=== PATIENT | male | born 1950 | race Caucasian/White ===

== ENCOUNTER → 2020-11-02 12:35 | Outpatient (BNVA) | payer MEDICARE, OTHER, SELFPAY | PROVIDERS: PCP Family Medicine; Visit Provider Internal Medicine Cardiovascular Disease | DX: E85.2 Heredofamilial amyloidosis, unspecified (principal); I95.1 Orthostatic hypotension; I35.0 Nonrheumatic aortic (valve) stenosis; Z79.899 Other long term (current) drug therapy | CPT/HCPCS: 99212 ==

== ENCOUNTER 2021-04-27 10:01 | Outpatient (REF) | payer MEDICARE, OTHER, SELFPAY ==
[2021-04-27 13:57] LABS: MANUAL DIFF FLAG NO
[2021-04-27 14:14] LABS: Basophils Percent Auto 0.6 % (0-2); Eosinophils Absolute Auto 0.5 X10*3/uL (0.0-0.4); Eosinophils Percent Auto 7.8 % (0-4); Hematocrit 39.3 % (42-52); Hemoglobin 13.2 g/dl (14.0-18.0); Imm Gran Abs Auto 0.01 X10*3/uL (0.00-0.03); Imm Gran Pct Auto 0.1 % (0.0-0.4); Mean Corpuscular HGB Conc 33.6 g/dl (31.0-36.0); Mean Corpuscular Hemoglobin 30.5 pg (27.0-33.0); Mean Corpuscular Volume 90.8 fL (80-98); Mean Platelet Volume 10.7 fL (9.4-12.4); Monocytes Absolute Auto 0.7 X10*3/uL (0.1-1.2); Monocytes Percent Auto 10.5 % (2-11); Neutrophils Absolute Auto 4.4 X10*3/uL (2.0-8.3); Platelet Count 224 X10*3/uL (160-400); Red Blood Count 4.33 X10*6/uL (4.60-5.80); Red Cell Distribution Width 12.4 % (11.0-16.0); White Blood Count 6.7 X10*3/uL (4.8-10.8)
[2021-04-27 14:17] LABS: Appearance Urine CLEAR; Color Urine YELLOW; Glucose Urine UA NEG (NEG); Leukocyte Esterase Urine NEG (NEG); Nitrite Urine NEG (NEG); Urine Blood TRACE (NEG); Urine Ketones NEG (NEG); Urine Protein NEG (NEG-TRACE)
[2021-04-27 14:32] LABS: Squamous Epithelial Cell Urine 1+ /LPF; WBC Urine 0 /HPF (0-4)
[2021-04-27 14:34] LABS: Alanine Aminotransferase 16 U/L (0-40); Albumin Level 3.8 g/dL (3.5-5.0); Alkaline Phosphatase 82 U/L (39-117); Anion Gap 11 (12-20); Aspartate Amino Transferase 22 U/L (5-37); Blood Urea Nitrogen 15 mg/dL (9-16); Calcium 9.3 mg/dL (8.4-10.2); Carbon Dioxide 30 mmol/L (22-29); Chloride 102 mmol/L (96-108); Cholesterol 171 mg/dL; Estimated Glomerular Filt Rate > 60; Glucose Fasting 87 mg/dL (60-99); HDL Cholesterol 43 mg/dL; LDL Cholesterol Calculated 118 mg/dl; Potassium 4.3 mmol/L (3.3-5.1); Sodium 139 mmol/L (135-145); Total Protein 6.4 g/dL (6.5-8.0); Triglycerides 54 mg/dL
[2021-04-27 14:54] LABS: Folate 17.7 ng/mL (> or = 4.0); Vitamin B12 803 pg/mL (200-900)
[2021-04-27 14:55] LABS: TSH reflex Free T4 0.92 uIU/mL (0.32-4.0)
== END 2021-04-27 10:02 | disposition home or self-care (01) ==
LOC: HO.WFDLDS 10:01
PROVIDERS: Visit Provider Family Medicine
DX: Z00.00 Encounter for general adult medical examination without abnormal findings (principal); E53.8 Deficiency of other specified B group vitamins; E85.2 Heredofamilial amyloidosis, unspecified
CPT/HCPCS: 36415; 80053; 80061; 81001; 81003; 82607; 82746; 84443; 85025

== ENCOUNTER → 2021-11-01 12:25 | Outpatient (BNVA) | payer MEDICARE, OTHER, SELFPAY | PROVIDERS: PCP Family Medicine; Referring Provider Family Medicine; Visit Provider Internal Medicine Cardiovascular Disease | DX: E85.2 Heredofamilial amyloidosis, unspecified (principal); I35.0 Nonrheumatic aortic (valve) stenosis; I95.1 Orthostatic hypotension | CPT/HCPCS: 93005 ==

== ENCOUNTER → 2021-11-12 11:19 | Outpatient (BNVA) | payer MEDICARE, OTHER, SELFPAY | PROVIDERS: PCP Family Medicine; Referring Provider Family Medicine; Visit Provider Internal Medicine Gastroenterology | DX: E85.2 Heredofamilial amyloidosis, unspecified (principal); R19.7 Diarrhea, unspecified | CPT/HCPCS: 99202 ==

== ENCOUNTER 2021-11-15 09:37 | Outpatient (REF) | payer MEDICARE, OTHER, SELFPAY ==
[2021-11-15 10:43] LABS: MANUAL DIFF FLAG NO
[2021-11-15 10:47] LABS: Basophils Percent Auto 0.7 % (0-2); Eosinophils Absolute Auto 0.1 X10*3/uL (0.0-0.4); Eosinophils Percent Auto 2.5 % (0-4); Hematocrit 40.4 % (42.0-52.0); Hemoglobin 13.7 g/dl (14.0-18.0); Imm Gran Abs Auto 0.01 X10*3/uL (0.00-0.03); Imm Gran Pct Auto 0.2 % (0.0-0.4); Lymphocytes Percent Auto 25.7 % (20-40); Mean Corpuscular HGB Conc 33.9 g/dl (31.0-36.0); Mean Corpuscular Hemoglobin 30.4 pg (27.0-33.0); Mean Corpuscular Volume 89.8 fL (80.0-98.0); Mean Platelet Volume 10.3 fL (9.4-12.4); Monocytes Absolute Auto 0.4 X10*3/uL (0.1-1.2); Monocytes Percent Auto 10.5 % (2-11); Neutrophils Absolute Auto 2.4 x10*3/uL (2.0-8.3); Neutrophils Percent Auto 60.4 % (45-73); Platelet Count 216 X10*3/uL (160-400); Red Cell Distribution Width 12.5 % (11.0-16.0)
[2021-11-15 10:55] LABS: INTERNATIONAL NORM RATIO 1.5 (0.9-1.1); Prothrombin Time 16.8 SEC (9.9-13.0)
[2021-11-15 11:28] LABS: Erythrocyte Sedimentation Rate 6 MM/HR (0-15)
[2021-11-15 11:35] LABS: Alanine Aminotransferase 18 U/L (0-40); Albumin Level 3.8 g/dL (3.5-5.0); Alkaline Phosphatase 70 U/L (39-117); Anion Gap 9 (12-20); Aspartate Amino Transferase 21 U/L (5-37); Bilirubin Total 0.8 mg/dL (0.0-1.0); Blood Urea Nitrogen 11 mg/dL (9-16); Calcium 9.4 mg/dL (8.4-10.2); Carbon Dioxide 32 mmol/L (22-29); Chloride 102 mmol/L (96-108); Estimated Glomerular Filt Rate > 60; Glucose Fasting 86 mg/dL (60-99); Potassium 3.9 mmol/L (3.3-5.1); Sodium 139 mmol/L (135-145); Total Protein 6.5 g/dL (6.5-8.0)
== END 2021-11-15 09:38 | disposition home or self-care (01) ==
LOC: HO.WFDLDS 09:37
PROVIDERS: Visit Provider Family Medicine
DX: Z00.00 Encounter for general adult medical examination without abnormal findings (principal); E85.89 Other amyloidosis; H34.8192 Central retinal vein occlusion, unspecified eye, stable
CPT/HCPCS: 36415; 80053; 85025; 85610; 85652

== ENCOUNTER → 2022-04-25 11:18 | Outpatient (BNVA) | payer MEDICARE, OTHER, SELFPAY | PROVIDERS: PCP Family Medicine; Visit Provider Internal Medicine Gastroenterology | DX: E85.89 Other amyloidosis (principal); Z79.899 Other long term (current) drug therapy | CPT/HCPCS: 99212 ==

== ENCOUNTER 2022-05-19 11:54 | Outpatient (REF) | payer MEDICARE, OTHER, SELFPAY | END 2022-05-19 11:55 | disposition home or self-care (01) | LOC: HO.LNP 11:54 | PROVIDERS: Visit Provider Nurse Practitioner Adult Health | DX: R82.71 Bacteriuria (principal) | CPT/HCPCS: 87086 ==

== ENCOUNTER 2022-09-22 09:36 | Outpatient (REF) | payer MEDICARE, OTHER, SELFPAY ==
[2022-09-22 11:15] LABS: MANUAL DIFF FLAG NO
[2022-09-22 11:25] LABS: Basophils Percent Auto 0.6 % (0-2); Eosinophils Absolute Auto 0.1 X10*3/uL (0.0-0.4); Hematocrit 40.4 % (42.0-52.0); Hemoglobin 13.7 g/dl (14.0-18.0); Imm Gran Abs Auto 0.01 X10*3/uL (0.00-0.03); Imm Gran Pct Auto 0.2 % (0.0-0.4); Lymphocytes Absolute Auto 1.1 X10*3/uL (1.2-4.9); Lymphocytes Percent Auto 22.6 % (20-40); Mean Corpuscular HGB Conc 33.9 g/dl (31.0-36.0); Mean Corpuscular Hemoglobin 30.7 pg (27.0-33.0); Mean Corpuscular Volume 90.6 fL (80.0-98.0); Mean Platelet Volume 10.7 fL (9.4-12.4); Monocytes Absolute Auto 0.5 X10*3/uL (0.1-1.2); Monocytes Percent Auto 10.8 % (2-11); Neutrophils Absolute Auto 3.2 x10*3/uL (2.0-8.3); Neutrophils Percent Auto 63.8 % (45-73); Platelet Count 208 X10*3/uL (160-400); Red Blood Count 4.46 X10*6/uL (4.60-5.80); Red Cell Distribution Width 13.2 % (11.0-16.0)
[2022-09-22 12:43] LABS: Alanine Aminotransferase 21 U/L (0-40); Albumin Level 3.8 g/dL (3.5-5.0); Alkaline Phosphatase 81 U/L (39-117); Anion Gap 13 (12-20); Aspartate Amino Transferase 23 U/L (5-37); Bilirubin Total 1.2 mg/dL (0.0-1.0); Blood Urea Nitrogen 17 mg/dL (9-16); Calcium 9.1 mg/dL (8.4-10.2); Carbon Dioxide 31 mmol/L (22-29); Chloride 102 mmol/L (96-108); Cholesterol 179 mg/dL; Estimated Glomerular Filt Rate > 60; Glucose Fasting 83 mg/dL (60-99); HDL Cholesterol 48 mg/dL; LDL Cholesterol Calculated 119 mg/dl; Potassium 4.1 mmol/L (3.3-5.1); Prealbumin < 3.0 mg/dL (20-40); Prostate Specific Antigen Scr 0.47 ng/mL (<0.05-4.0); Sodium 142 mmol/L (135-145); TSH reflex Free T4 1.79 uIU/mL (0.32-4.0); Total Protein 6.3 g/dL (6.5-8.0); Triglycerides 63 mg/dL
== END 2022-09-22 09:37 | disposition home or self-care (01) ==
LOC: HO.WFDLDS 09:36
PROVIDERS: Visit Provider Family Medicine
DX: Z00.00 Encounter for general adult medical examination without abnormal findings (principal); Z12.5 Encounter for screening for malignant neoplasm of prostate; E85.2 Heredofamilial amyloidosis, unspecified
CPT/HCPCS: 36415; 80053; 80061; 84134; 84153; 84443; 85025

== ENCOUNTER 2022-09-23 10:21 | Outpatient (REF) | payer MEDICARE, OTHER, SELFPAY ==
[2022-09-23 14:16] LABS: Appearance Urine Clear; Color Urine Yellow; Glucose Urine UA Negative (Negative); Leukocyte Esterase Urine Moderate (2+) (Negative); Nitrite Urine Negative (Negative); Specific Gravity - Urine 1.015 (1.005-1.025); UMIC TRIGGER UA YES; Urine Blood Negative (Negative); Urine Ketones Negative (Negative); Urine Protein Negative (Neg-Trace)
[2022-09-23 14:19] LABS: RBC Urine 0-2 /HPF (0-2); WBC Urine 21-50 /HPF (0-5)
[2022-09-23 14:20] LABS: Bacteria Urine None Seen (None Seen); Hyaline Casts Urine 0-2 /LPF (0-2); Squamous Epithelial Cell Urine 0-2 /HPF (0-2)
[2022-09-23 15:12] LABS: Creatinine Urine 91.72 mg/dL; Microalbum/Creatinine Ratio Ur 11.9 ug/mg cr
== END 2022-09-23 10:22 | disposition home or self-care (01) ==
LOC: HO.WFDLNP 10:21
PROVIDERS: Visit Provider Family Medicine
DX: I10 Essential (primary) hypertension (principal)
CPT/HCPCS: 81001; 81003; 82043

== ENCOUNTER → 2022-11-03 12:33 | Outpatient (BNVA) | payer MEDICARE, OTHER, SELFPAY | PROVIDERS: PCP Family Medicine; Referring Provider Family Medicine; Visit Provider Internal Medicine Cardiovascular Disease | DX: E85.2 Heredofamilial amyloidosis, unspecified (principal); I35.0 Nonrheumatic aortic (valve) stenosis; I95.1 Orthostatic hypotension | CPT/HCPCS: 93005; 99212 ==

== ENCOUNTER → 2022-11-11 10:30 | Outpatient (BNVA) | payer MEDICARE, OTHER, SELFPAY | PROVIDERS: PCP Family Medicine; Visit Provider Internal Medicine Gastroenterology | DX: E85.3 Secondary systemic amyloidosis (principal) | CPT/HCPCS: 99212 ==

== ENCOUNTER 2023-07-13 12:51 | Outpatient (AMB) | payer MEDICARE, OTHER, SELFPAY ==
--- NOTE | 2023-07-13 12:57 | MHC.PC.OV ---
Vital Signs 07/13/23 12:59 Height 6 ft 0.5 in Weight 160 lb BMI 21.4 BP 126/74 Blood Pressure Location Rt brachial Position Sitting Respiration 13 Pulse 73 Pulse Source Pulse Oximeter Temp 97.6 F Temp Source Temporal Artery Scan Pulse Oximetry (%) 99 Oxygen Delivery Method Room Air Intake Visit Reasons: Follow up chronic conditions Intake Note: Patient states that he needs a refill on fludrocortisone and that the instruction on the medication needs to say half a tab once a day so that they give 45 tabs instead of 90 for the month. Pathology Laboratory Director Required: No Accompanied by: Spouse Allergies No Known Allergies Allergy (Verified 07/13/23 13:05) Tobacco use date assessed: 03/21/23 Fall risk assessment: No Falls in past year Last assessed Fall Risk: 07/13/23 Dental Screening Dental Screen Date: 07/13/23 Did you have a dental visit in the last 12 months?: Yes Did you have a dental problem in the last 6 months where you did not have access to dental care?: No Was dental information given to patient?: Patient has dentist HPI Follow up chronic conditions HPI Details 73 y/o male presents to f/u chronic conditions. Hx of amyloidosis. Chronic diarrhea. Pt continues to follow up with specialists in [place] and continues his vutrisiran. He states he is breathing well and feels his strength is better. He reports diarrhea has improved. HPI Comments History of Present Illness Details Documentation assistance for Dioni Quevedo MD, was provided by Ziyad Robbins, Self Contained Behavior Unit Teacher on 07/13/2023 1:29 PM EST. I, Dr. Quevedo, have read, observed, and verified documentation. [facility] Medical History Orthostatic hypotension Aortic stenosis Amyloidosis inherited systemic Surgical History History of carpal tunnel surgery History of biopsy History of surgery History of colonoscopy Family History Father Substance use disorder Mother Leukemia Brother No problems noted. Sister Seronegative rheumatoid arthritis Sister No problems noted. Daughter No problems noted. Social History Housing: House Alcohol intake: current Alcohol intake frequency: a few times a month Patient Tobacco Use Status: Never used Tobacco e-Cigarette/Vaping Use: Never Used service: No Current occupational status: retired Current occupational exposures/hazards: No Cognitive needs: No Hearing needs: No Vision needs: No Questionnaire Thrive Questionnaire Date Thrive assessed: 09/29/22 ABRIL-7 AMB Questionnaire ABRIL-7 Date ABRIL - 7 assessed: 09/29/22 Source: Developed by Drs. Salvador Stout, Dory Queen, Johnathon Zapata and colleagues, with an educational tamara from [employer]. Review of Systems Const Denies chills, Denies fatigue, Denies fever(s), Denies headache(s) and Denies weakness ENT Denies dizziness and Denies headache(s) Card Denies chest pain, Denies lightheadedness, Denies dyspnea and Denies other (Palpitations) Resp Denies cough, Denies dyspnea, Denies wheezing and Denies other ( shortness of breath) Musc Denies numbness and Denies tingling Neuro Denies dizziness, Denies headache(s), Denies numbness, Denies tingling, Denies paresthesias and Denies weakness Psych Denies anxiety and Denies depression Endo Denies fatigue Aller/Immun Denies wheezing Physical exam (Primary Care) Vital Signs: Last Vital Signs Temp 97.6 F 07/13/23 12:59 Pulse 73 07/13/23 12:59 Resp 13 07/13/23 12:59 BP 126/74 07/13/23 12:59 Pulse Ox 99 07/13/23 12:59 Oxygen Delivery Method Room Air 07/13/23 12:59 BMI result Body Mass Index 21.4 Tobacco/Smoking Status: Tobacco use Status Tobacco use date assessed 03/21/23 07/13/23 12:59 Patient Tobacco Use Status Never used Tobacco 07/13/23 12:59 e-Cigarette/Vaping Use Never Used 07/13/23 12:59 Thrive Assessment: Date of Thrive Assessment Date Thrive assessed 09/29/22 07/13/23 12:59 Const General: no acute distress and well developed Nutritional Appearance: well nourished Orientation/consciousness: patient oriented x3 HENMT Head: Yes normocephalic and Yes atraumatic Eyes General: appearance normal, both eyes and all related structures Pupils: Equal, round and reactive pupils present EOM: EOMs intact bilaterally Resp Effort & Inspection: normal respiratory effort Auscultation: clear to auscultation bilaterally Cardio Rate: regular rate Rhythm: regular rhythm Heart sounds: S1 normal heart sound present, S2 normal heart sound present, no gallops, Murmur heart sound present and no rubs Neuro General: patient oriented x3 and gait normal Cranial nerves: Yes Equal, round and reactive pupils present Psych Affect: normal affect Assessment and Plan Assessment & Plan (1) Amyloidosis inherited systemic: Code(s): 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 Most?recent?visit?at?[facility]?in?May?showed?that?his?neuromuscular?exam?was?stable?or?even?mildly?improved. They?recommended?he?have?an?echocardiogram?in?6?months?to?follow?his?aortic?valve?stenosis. Suggested?that?BNP?is?likely?elevated?due?to?progression?of?this. Continue?exercising?at?home (2) Diarrhea: Code(s): R19.7 - Diarrhea, unspecified Plan: Much?improved?though?patient?is?not?certain?exactly?why.??He?does?continue?Imodium.??He?tried?cholestyramine?without?any?improvements?so?he?stopped?that. Follow-up?with?GI?as?recommended Orders: Orders Microalbumin, Random (w Creat) 5 Months I10 - Essential (primary) hypertension UA and rflx microscopic 5 Months Z00.00 - Encounter for general adult medical examination without abnormal findings TSH reflex Free T4 5 Months Z00.00 - Encounter for general adult medical examination without abnormal findings B Type Natriuretic Peptide Today I50.9 - Heart failure, unspecified Comprehensive [place]. Panel Fast 5 Months Z00.00 - Encounter for general adult medical examination without abnormal findings Complete Blood Count Auto Diff 5 Months Z00.00 - Encounter for general adult medical examination without abnormal findings Lipid Panel 5 Months Z00.00 - Encounter for general adult medical examination without abnormal findings Prostate Specific Antigen Scr 5 Months Z12.5 - Encounter for screening for malignant neoplasm of prostate Basic Metabolic Panel Fasting Today R19.7 - Diarrhea, unspecified Medications: Refilled fludrocortisone 0.05 mg (1/2 x 0.1 mg) PO QAM 45 tabs 3RF 90 days Coding Level of Care Code Est Pt Level 4 (28912) Diagnoses Amyloidosis inherited systemic E85.2 Diarrhea R19.7
[2023-07-13 12:59] VITALS: BP 126/74; PULSE 73; RESP 13; TEMP 36.4; O2SAT 99; BMI 21.4
== END 2023-07-13 13:52 | disposition home or self-care (01) ==
PROVIDERS: PCP Family Medicine; Visit Provider Family Medicine
DX: E85.2 Heredofamilial amyloidosis, unspecified (principal); R19.7 Diarrhea, unspecified
CPT/HCPCS: 99214

== ENCOUNTER 2023-08-25 14:39 | Outpatient (REF) | payer MEDICARE, OTHER, SELFPAY ==
[2023-08-25 16:34] LABS: Anion Gap 9 (12-20); Blood Urea Nitrogen 13 mg/dL (9-16); Calcium 9.1 mg/dL (8.4-10.2); Carbon Dioxide 32 mmol/L (22-29); Chloride 102 mmol/L (96-108); Estimated Glomerular Filt Rate > 60; Glucose Random 94 mg/dL (60-115); Potassium 3.8 mmol/L (3.3-5.1); Sodium 139 mmol/L (135-145)
[2023-08-25 16:39] LABS: B Type Natriuretic Peptide 291 pg/mL (<100)
== END 2023-08-25 14:40 | disposition home or self-care (01) ==
LOC: HO.LAB 14:39
PROVIDERS: PCP Family Medicine; Visit Provider Internal Medicine Cardiovascular Disease
DX: M79.89 Other specified soft tissue disorders (principal)
CPT/HCPCS: 36415; 80048; 83880

== ENCOUNTER 2023-11-06 10:46 | Outpatient (AMB) | payer MEDICARE, OTHER, SELFPAY ==
[2023-11-06 10:56] VITALS: BP 145/55; PULSE 71; BMI 22.1
--- NOTE | 2023-11-06 10:56 | MHC.OFFVIS ---
Intake Vital Signs 11/06/23 10:56 Height 6 ft 0.05 in Weight 163 lb 2.273 oz BMI 22.1 BP 145/55 H Blood Pressure Location Lt brachial Position Sitting Pulse 71 Intake Visit Reasons: 1 Year Follow Up Intake Note: Wilmar presents in the office as a 1 year follow up. CC: No concerns today! Allergies No Known Allergies Allergy (Verified 11/06/23 11:03) HPI 1 Year Follow Up HPI Details 73 yr old m here for f/u RECAP: He was diagnosed with hereditary amyloidosis, after he had weakness in the legs he is on patisiran he has been having bowel habit issues he has diarrhea he had SIBO test with [facility] and was apparently pos and was given rifaxmin with great results he had formed stools for several weeks sx recurred few weeks ago he has diarrhea tyson with any type of food he has had c diff 2018 he had c diff checked Aug 2021 and was neg last colonoscopy 2018--nml INTERIM: he is doing well he is on the amyloidosis treatment q 3 months still taking probiotic, align--night time he has v occasional diarrhea attacks, not as bad as before --uses imodium which helps no abdominal pain appetite is good he didnt like the cholestyramine --felt it made him worse EXAM: GENERAL: The patient is relaxed VITAL SIGNS:see workflow HEENT: Nonicteric sclerae, PERRLA, EOMI. Oropharynx clear. Moist mucous membranes. Conjunctivae appear well perfused. No thyroid mass. CHEST: Chest wall is nontender. HEART: Regular rate and rhythm without murmurs. LUNGS: Clear to auscultation bilaterally. ABDOMEN: Soft, positive bowel sounds, nontender, no organomegaly.no flank tenderness SKIN: No rash, no excessive bruising, petechiae, or purpura. NEUROLOGIC: Cranial nerves II-XII intact without motor/sensory deficit. psych: nml affect A/P 1/ Hx of amyloidosis, does predispose to SIBO, plus itself can invade lining of GI tract and can cause diarrhea, ddx; CHO intolerance, pancreatic intolerance, biliary malabsorption PLAN: 1/ cont with align, will add colveselam and see if helps 2/ prn rifaximin PFSH Medical History Orthostatic hypotension Aortic stenosis Amyloidosis inherited systemic Surgical History History of carpal tunnel surgery History of biopsy History of surgery History of colonoscopy Family History Father Substance use disorder Mother Leukemia Brother No problems noted. Sister Seronegative rheumatoid arthritis Sister No problems noted. Daughter No problems noted. Social History Housing: House Alcohol intake: current Alcohol intake frequency: a few times a month Patient Tobacco Use Status: Never used Tobacco e-Cigarette/Vaping Use: Never Used service: No Current occupational status: retired Current occupational exposures/hazards: No Cognitive needs: No Hearing needs: No Vision needs: No Physical Exam Vital Signs: Last Vital Signs Pulse 71 11/06/23 10:56 BP 145/55 H 11/06/23 10:56 BMI result Body Mass Index 22.1 Assessment & Plan Assessment & Plan (1) Diarrhea: Code(s): R19.7 - Diarrhea, unspecified Plan: PLAN: 1/ cont with align, will add colveselam and see if helps 2/ prn rifaximin Medications: New colesevelam 1,250 mg (2 x 625 mg) PO BID 30 tabs 0RF Coding Level of Care Code Est Pt Level 3 (65066) Diagnoses Diarrhea R19.7
== END 2023-11-06 11:26 | disposition home or self-care (01) ==
PROVIDERS: PCP Family Medicine; Visit Provider Internal Medicine Gastroenterology
DX: R19.7 Diarrhea, unspecified (principal)
CPT/HCPCS: 99213

== ENCOUNTER → 2023-11-06 10:46 | Outpatient (BNVA) | payer MEDICARE, OTHER, SELFPAY | PROVIDERS: PCP Family Medicine; Visit Provider Internal Medicine Gastroenterology | DX: R19.7 Diarrhea, unspecified (principal) | CPT/HCPCS: 99212 ==

== ENCOUNTER → 2023-11-13 12:39 | Outpatient (REF) | payer MEDICARE, OTHER, SELFPAY ==
--- NOTE | 2023-11-13 12:42 | CA_ITS ---
Transthoracic Echocardiogram Patient (Last, First, Middle): Wilmar Pope L Gender: Male Date of : 1950 Age: 73 Procedure Date: 11/13/2023 Procedure Type: Transthoracic Echocardiogram Location: OP Height: 185.42 cm Weight: 73.94 kg BSA: 1.97 m2 Heart Rate: bpm BP: 122 / 68 mmHg Assorter Laundry: TERE Referring MD: Basim Sumner MD Radio/Tv Technician: Basim Sumner MD Symptoms: I50.9 - Heart failure, unspecified Study Quality: Adequate ECG Rhythm: Sinus Conclusions: - 1. Normal LV ejection fraction 55-60% with mild LVH with grade 3 diastolic dysfunction with strain findings suggestive of cardiac amyloidosis 2. Mildly dilated left atrium 3. Severe paradoxical low-flow aortic stenosis 4. Normal RV systolic pressure 5. Mildly dilated ascending aorta at 3.8 cm 6. Small to moderate pericardial effusion, circumferentially present Findings Left Ventricle Normal left ventricular cavity size. There is mildly increased left ventricular wall thickness. The left ventricular systolic function is normal. The visually estimated ejection fraction is between 55-60%. Spectral Doppler is indicative of a restrictive filling pattern. E/E prime ratio is >15, consistent with elevated filling pressures. Evidence suggests grade III (severe) diastolic dysfunction. Peak GLS is -12.7%, which is moderately reduced with relative apical sparing which is seen in cardiac amyloidosis. Right Ventricle Normal right ventricular cavity size and systolic function. Atria The left atrium is mildly dilated. There is no evidence of interatrial shunt. The right atrium is likely dilated. Aortic Valve There is moderate calcification of the aortic valve. There is mild thickening of the aortic valve. There is severe aortic valve stenosis. The peak aortic gradient is 41 mmHg.The mean gradient is 25 mmHg. The aortic valve area is 0.69 cm2. There is mild aortic valve regurgitation. dimensionless index is 0.20 consistent with severe aortic stenosis. Findings suggestive of paradoxical low-flow aortic stenosis Mitral Valve There is mild anterior and posterior mitral leaflet thickening. There is mild mitral valve regurgitation. There is no mitral valve stenosis. Pulmonic Valve The pulmonic valve is likely normal. Tricuspid Valve Normal tricuspid valve structure. There is mild tricuspid valve regurgitation. The right ventricular systolic pressure is normal. The right ventricular systolic pressure is 17 mmHg. Normal right atrial pressure. There is no evidence of pulmonary hypertension. Great Vessels The pulmonary artery was not well visualized. There is mild dilatation of the ascending aorta measuring 3.80 cm. Venous The inferior vena cava is normal in size and collapses greater than 50% with inspiration. Pericardium/Pleural There is a small circumferential pericardial effusion. Measurements 2D Linear Measurements IVSd: 1.35 0.6-0.9/0.6-1.0 cm LVIDd: 4.86 3.9-5.3/4.2-5.9 cm LVIDd Index: 2.47 2.4-3.2/2.2-3.1 cm/m2 LVIDs: 3.83 2.0-3.6 cm LVPWd: 1.30 0.7-1.1 cm LA Diam: 3.10 2.7-3.8/3.0-4.0 cm LAIDs Index: 1.57 1.5-2.3 cm/m2 LV Mass: 321.12 67-162/88-224 g LV Mass Index: 163.01 43-95/49-115 g/m2 LVOT Diam: 2.10 3.0+(-)1.3 cm 2D Systolic Function EF 4C: 52.80 >55% EF 2C: 59.00 >55% EF BiP: 56.70 >55% Mitral Valve MV Pk E: 1.41 MV PK A: 0.67 MV Decel Time: 171.00 E/A: 2.10 E'Lateral: 5.33 E'Medial: 3.37 E/E' Med: 41.80 E/E' Lat: 26.50 PHT: 50.00 MVA PHT: 4.40 Decel [place]: 8.28 Aortic Valve AoV Pk [place]: 3.21 AoV Mn [place]: 2.37 AoV VTI: 0.86 AoV Pk Grad: 41.00 Aov Mn Grad: 25.00 SARAH Cont.VTI: 0.69 LVOT LVOT Pk [place]: 0.74 LVOT Mn Le[place]: 0.50 LVOT VTI: 0.17 LVOT Pk Grad: 2.00 LVOT Mn Grad: 1.00 LVOT Diam: 2.10 LVOT Area: 3.46 Diastolic Function MV Pk E: 1.41 MV Pk A: 0.67 E/A: 2.10 E'Medial: 3.37 E/E' Med: 41.80 E' Laterial: 5.33 E/E' Lat: 26.50 Right Ventricle TAPSE (mm): 22.30 TVS' Le[place]: 9.68 Tricuspid Valve TR Pk [place]: 1.87 TR Pk Grad: 14.00 RA Press: 3.00 RVSP: 17.00 Great Vessels Aorta Sinus of Valsalva: 3.63 2.0-3.[address] [place]: 2.26 1.7-3.4 cm Ao Asc: 3.80 2.1-3.4 cm Updated in Other Vendor System with Status of Final Basim Sumner MD electronically signed on 11/13/2023 3:22:21 PM with status of Final
== END ==
LOC: HO.CARD 12:39
PROVIDERS: PCP Family Medicine; Visit Provider Internal Medicine Cardiovascular Disease
DX: I50.9 Heart failure, unspecified (principal)
CPT/HCPCS: 93306; 93356

== ENCOUNTER → 2023-11-13 12:42 | Outpatient (BNV) | payer MEDICARE, OTHER, SELFPAY | PROVIDERS: PCP Family Medicine; Visit Provider Internal Medicine Cardiovascular Disease | DX: I50.9 Heart failure, unspecified (principal); I31.39 Other pericardial effusion (noninflammatory) | CPT/HCPCS: 93306; 93356 ==

== ENCOUNTER 2023-11-30 12:28 | Outpatient (AMB) | payer MEDICARE, OTHER, SELFPAY ==
--- NOTE | 2023-11-30 12:40 | MHC.OFFVIS ---
Vital Signs 11/30/23 12:41 Height 6 ft 0.5 in Weight 160 lb 14.999 oz BMI 21.5 BP 114/82 Blood Pressure Location Lt brachial Position Sitting Pulse 66 Pulse Source Monitor Intake Visit Reasons: 1 year follow up Social Director Required: No Server Developer: Server Developer Present Allergies No Known Allergies Allergy (Verified 11/30/23 12:46) Medication List - Last Reconciled 11/30/23 by Basim Sumner MD aspirin (Adult Aspirin Regimen) 81 mg PO DAILY colesevelam 1,250 mg (2 x 625 mg) PO BID finasteride 5 mg PO DAILY fludrocortisone 0.05 mg (1/2 x 0.1 mg) PO QAM 90 days furosemide (Lasix) 20 mg PO DAILY gabapentin 200 mg PO BID multivitamin (Daily Multi-Vitamin tablet) 1 tab PO DAILY sulfamethoxazole-trimethoprim 800-160 mg (Bactrim DS) 1 tab PO Q12H 10 days vutrisiran (Amvuttra) 0.5 mL subcut [id number] HPI Comments Details: Wilmar comes for follow-up, over the last few months he has been having unilateral right lower extremity swelling. 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 He is got recurrent cellulitis and currently got another episode and is on antibiotics. He usually wears compression stocking on the right lower extremity. He said in the morning both legs are similar but then over the day he gets right lower extremity swelling. He denies any worsening symptoms of shortness of breath, orthopnea, PND. No exertional lightheadedness or chest pain. No syncopal episode. However he is functionality is limited because of his musculoskeletal and neurologic issues. He said that has been gradual improvement in his neurologic symptoms with treatment for amyloidosis. He had a recent echocardiogram as his BNP was slightly high and we repeated echocardiogram which now shows normal LV ejection fraction with paradoxical low-flow severe aortic stenosis with mean gradient of 25 mm Hg with dimensionless index of 0.20. We discussed about this finding and he said that this is unusual as his echocardiogram and [place] showed moderate aortic stenosis. Takes all his medications including low-dose aspirin therapy as well as fludrocortisone therapy. [facility] Medical History Orthostatic hypotension Aortic stenosis Amyloidosis inherited systemic Surgical History History of carpal tunnel surgery History of biopsy History of surgery History of colonoscopy Family History Father Substance use disorder Mother Leukemia Brother No problems noted. Sister Seronegative rheumatoid arthritis Sister No problems noted. Daughter No problems noted. Social History Housing: House Alcohol intake: current Alcohol intake frequency: a few times a month Patient Tobacco Use Status: Never used Tobacco e-Cigarette/Vaping Use: Never Used service: No Current occupational status: retired Current occupational exposures/hazards: No Cognitive needs: No Hearing needs: No Vision needs: No Review of Systems ENT Reports dizziness Card Denies chest pain, Denies chest pain at rest, Denies chest pain with activity, Denies rapid heart rate, Denies pedal edema, Denies edema, Denies leg edema, Denies lightheadedness, Denies palpitations, Denies dyspnea, Denies dyspnea on exertion and Denies orthopnea Resp Denies cough, Denies dyspnea and Denies dyspnea on exertion GI Denies hematochezia and Denies change in stool character Musc Denies abnormal gait, Reports limited range of motion, Reports muscle cramps, Denies muscle weakness, Denies numbness, Denies radiating pain into limb, Denies stiffness and Denies tingling Neuro Denies abnormal gait, Reports dizziness, Denies numbness and Denies tingling Endo Denies palpitations Physical Exam Vital Signs: Last Vital Signs Pulse 66 11/30/23 12:41 BP 114/82 11/30/23 12:41 BMI result Body Mass Index 21.5 Const General: cooperative, comfortable, no acute distress, alert, awake and well groomed Nutritional Appearance: thin Orientation/consciousness: patient oriented x3 Limitations: ambulation with walker Neck Neck: Yes trachea midline, Yes supple and Yes no JVD Carotids: delayed carotid upstroke Resp Effort & Inspection: normal respiratory effort Auscultation: clear to auscultation bilaterally Cardio Jugular venous distension: no JVD Palpation: normal PMI Rate: regular rate Rhythm: regular rhythm Heart sounds: S1 normal heart sound present, Murmur heart sound present systolic late, mid, decrescendo and crescendo and Other heart sounds present (Soft test to) GI Auscultation: normal bowel sounds Skin General skin exam: no rashes or lesions noted Neuro General: patient oriented x3 and no focal motor deficits Extrem General: No clubbing, No cyanosis and Yes edema (One to 2+ on right greater than left) Psych Appearance: grossly normal Office Procedures EKG Details: EKG shows sinus rhythm with first-degree AV block with left axis deviation with nonspecific intra ventricular conduction delay with left bundle morphology [id number], Complete Assessment & Plan Assessment & Plan (1) Aortic stenosis: Code(s): I35.0 - Nonrheumatic aortic (valve) stenosis Category: Medical Plan: Aortic stenosis by most recent echocardiogram and clinically suggestive of severe aortic stenosis. Paradoxical low-flow aortic stenosis. He has no symptoms associated with it. He had questions about aortic stenosis and why there was rapid progression. Although we discussed her aortic stenosis is calculated based on echocardiogram. I would suggest him to repeat another echocardiogram 6 months time which she is going to do it [facility]. We discussed about symptoms associated with aortic stenosis. Currently he has not significantly symptomatic but could be due to reduced functional ability. However if he develops any new symptoms he is advised to call my office as that will be definitely indication to pursue aortic valve replacement. Patient with cardiac amyloidosis have somewhat limited outcomes compared to patient's without cardiac amyloidosis although if that is the only reason causing him to have symptoms should pursue aortic valve replacement by transcatheter means. This was discussed with him. Process of transcatheter aortic valve replacement was discussed in details. Patient will think about it. (2) Orthostatic hypotension: Code(s): I95.1 - Orthostatic hypotension Category: Medical Plan: Orthostatic hypertension which is currently stable on low-dose fludrocortisone therapy. He has no signs or symptoms of heart failure although BNP is elevated. Continue fludrocortisone therapy. Advised to maintain adequate oral hydration. 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 Currently taking therapy with subcu injection Q 3 months which has significantly improved the quality of life. He has shown gradual improvement in his neurologic symptoms. Following with amyloidosis Center in [facility]. Will follow up in the clinic in 1 year's time on his request. Thank you for allowing me to partake in his care Medications: Discontinued furosemide (Lasix) Discontinued Reason: Patient no longer taking 20 mg PO DAILY 90 tabs 2RF
[2023-11-30 12:41] VITALS: BP 114/82; PULSE 66; BMI 21.5
== END 2023-11-30 13:21 | disposition home or self-care (01) ==
PROVIDERS: Visit Provider Internal Medicine Cardiovascular Disease
DX: I35.0 Nonrheumatic aortic (valve) stenosis (principal); I95.1 Orthostatic hypotension; E85.2 Heredofamilial amyloidosis, unspecified
CPT/HCPCS: 93010; 99214

== ENCOUNTER → 2023-11-30 12:28 | Outpatient (BNVA) | payer MEDICARE, OTHER, SELFPAY | PROVIDERS: Visit Provider Internal Medicine Cardiovascular Disease | DX: I35.0 Nonrheumatic aortic (valve) stenosis (principal); I95.1 Orthostatic hypotension; I50.9 Heart failure, unspecified; I44.0 Atrioventricular block, first degree; I45.4 Nonspecific intraventricular block; E85.2 Heredofamilial amyloidosis, unspecified | CPT/HCPCS: 93005; 99212 ==

== ENCOUNTER 2024-01-04 09:30 | Outpatient (REF) | payer MEDICARE, OTHER, SELFPAY ==
[2024-01-04 11:49] LABS: MANUAL DIFF FLAG NO
[2024-01-04 11:55] LABS: Basophils Percent Auto 0.7 % (0-2); Eosinophils Absolute Auto 0.2 X10*3/uL (0.0-0.4); Eosinophils Percent Auto 2.5 % (0-4); Hematocrit 40.5 % (42.0-52.0); Hemoglobin 13.7 g/dl (14.0-18.0); Imm Gran Abs Auto 0.01 X10*3/uL (0.00-0.03); Imm Gran Pct Auto 0.2 % (0.0-0.4); Lymphocytes Absolute Auto 1.2 X10*3/uL (1.2-4.9); Lymphocytes Percent Auto 19.2 % (20-40); Mean Corpuscular HGB Conc 33.8 g/dl (31.0-36.0); Mean Corpuscular Hemoglobin 30.7 pg (27.0-33.0); Mean Corpuscular Volume 90.8 fL (80.0-98.0); Mean Platelet Volume 10.5 fL (9.4-12.4); Monocytes Absolute Auto 0.6 X10*3/uL (0.1-1.2); Monocytes Percent Auto 10.2 % (2-11); Neutrophils Absolute Auto 4.1 x10*3/uL (2.0-8.3); Neutrophils Percent Auto 67.2 % (45-73); Platelet Count 181 X10*3/uL (160-400); Red Blood Count 4.46 X10*6/uL (4.60-5.80); Red Cell Distribution Width 13.2 % (11.0-16.0); White Blood Count 6.1 X10*3/uL (4.8-10.8)
[2024-01-04 12:15] LABS: B Type Natriuretic Peptide 244 pg/mL (<100)
[2024-01-04 12:25] LABS: Alanine Aminotransferase 25 U/L (0-40); Albumin Level 3.7 g/dL (3.5-5.0); Alkaline Phosphatase 80 U/L (39-117); Anion Gap 11 (12-20); Aspartate Amino Transferase 30 U/L (5-37); Bilirubin Total 0.7 mg/dL (0.0-1.0); Blood Urea Nitrogen 14 mg/dL (9-16); Calcium 9.2 mg/dL (8.4-10.2); Carbon Dioxide 31 mmol/L (22-29); Chloride 104 mmol/L (96-108); Cholesterol 151 mg/dL (<200); Estimated Glomerular Filt Rate > 60; Glucose Fasting 85 mg/dL (60-99); HDL Cholesterol 47 mg/dL (>40); LDL Cholesterol Calculated 94 mg/dL (<100); Potassium 3.9 mmol/L (3.3-5.1); Sodium 142 mmol/L (135-145); Total Protein 6.5 g/dL (6.5-8.0); Triglycerides 53 mg/dL (<150)
[2024-01-04 12:30] LABS: Prostate Specific Antigen Scr 0.36 ng/mL (<0.05-4.0)
== END 2024-01-04 09:31 | disposition home or self-care (01) ==
LOC: HO.WFDLDS 09:30
PROVIDERS: Visit Provider Family Medicine
DX: Z00.00 Encounter for general adult medical examination without abnormal findings (principal); I50.9 Heart failure, unspecified; Z12.5 Encounter for screening for malignant neoplasm of prostate
CPT/HCPCS: 36415; 80053; 80061; 83880; 84153; 84443; 85025

== ENCOUNTER 2024-01-05 14:24 | Outpatient (REF) | payer MEDICARE, OTHER, SELFPAY ==
[2024-01-05 14:54] LABS: Appearance Urine Cloudy; Color Urine Yellow; Glucose Urine UA Negative (Negative); Leukocyte Esterase Urine Large (3+) (Negative); Nitrite Urine Negative (Negative); UMIC TRIGGER UA YES; Urine Blood Small (1+) (Negative); Urine Ketones Negative (Negative); Urine Protein Negative (Neg-Trace)
[2024-01-05 14:56] LABS: Bacteria Urine None Seen (None Seen); Hyaline Casts Urine 0-2 /LPF (0-2); Squamous Epithelial Cell Urine 0-2 /HPF (0-2); WBC Urine >50 /HPF (0-5)
[2024-01-05 15:33] LABS: Creatinine Urine 58.91 mg/dL; Microalbum/Creatinine Ratio Ur 16.9 ug/mg cr (<30)
== END 2024-01-05 14:25 | disposition home or self-care (01) ==
LOC: HO.LNP 14:24
PROVIDERS: Visit Provider Family Medicine
DX: Z00.00 Encounter for general adult medical examination without abnormal findings (principal); I10 Essential (primary) hypertension
CPT/HCPCS: 81001; 82043; 82570

== ENCOUNTER 2024-01-11 12:48 | Outpatient (AMB) | payer MEDICARE, OTHER, SELFPAY ==
--- NOTE | 2024-01-11 13:05 | A.OFFPC_ITS ---
Vital Signs 01/11/24 13:17 Height 6 ft 0.5 in Weight 160 lb BMI 21.4 BP 118/62 Blood Pressure Location Rt brachial Position Sitting Pulse 71 Pulse Source Pulse Oximeter Pulse Oximetry (%) 98 Oxygen Delivery Method Room Air Intake Visit Reasons: Follow up chronic conditions Intake Note: Patient is here to follow up on chronic conditions. Allergies No Known Allergies Allergy (Verified 01/11/24 13:10) Tobacco use date assessed: 01/11/24 Fall risk assessment: No Falls in past year Last assessed Fall Risk: 01/11/24 Dental Screening Dental Screen Date: 01/11/24 Did you have a dental visit in the last 12 months?: Yes Did you have a dental problem in the last 6 months where you did not have access to dental care?: No Was dental information given to patient?: Patient has dentist HPI Follow up chronic conditions HPI Details 73 y/o male presents to f/u general acute hospital. Saw Dr. [facility] for aortic stenosis - most recent echocardiogram clinically suggestive of severe aortic stenosis. He denies any new symptoms. [facility] Medical History (Updated 01/11/24 @ 14:05 by Ziyad Robbins) Cellulitis Orthostatic hypotension Aortic stenosis Amyloidosis inherited systemic Surgical History History of carpal tunnel surgery History of biopsy History of surgery History of colonoscopy Family History Father Substance use disorder Mother Leukemia Brother No problems noted. Sister Seronegative rheumatoid arthritis Sister No problems noted. Daughter No problems noted. Social History Housing: House Alcohol intake: current Alcohol intake frequency: a few times a month Patient Tobacco Use Status: Never used Tobacco e-Cigarette/Vaping Use: Never Used service: No Current occupational status: retired Current occupational exposures/hazards: No Cognitive needs: No Hearing needs: No Vision needs: No Questionnaire PHQ-9 Over the last 2 weeks, how often have you been bothered by any of the following problems? 1. Little interest or pleasure in doing things: not at all 2. Feeling down, depressed, or hopeless: not at all 3. Trouble falling or staying asleep, or sleeping too much: not at all 4. Feeling tired or having little energy: not at all 5. Poor appetite or overeating: not at all 6. Feeling bad about yourself - or that you are a failure or have let yourself or your family down: not at all 7. Trouble concentrating on things, such as reading the newspaper or watching television: not at all 8. Moving or speaking so slowly that other people could have noticed. Or the opposite - being so fidgety or restless that you have been moving around a lot more than usual: not at all 9. Thoughts that you would be better off or of hurting yourself in some way: not at all Total score: 0 Depression Screening Interpretation: Negative Depression Screening Done: Yes Source: Developed by Drs. Salvador Stout, Dory Queen, Johnathon Zapata and colleagues, with an educational tamara from [employer]. Thrive Questionnaire Date Thrive assessed: 01/11/24 I am a: Patient What is your living situation today?: I have a steady place to live Within the past 12 months, did the food you bought not last and you didn't have the money to get more?: Never true Within the past 12 months, did you worry whether your food would run out before you got money to buy more?: Never true Do you have trouble paying for medicines?: No Do you have trouble getting transportation to medical appointments?: No Do you have trouble paying your heating and electricity bill?: No Do you have trouble taking care of your child, family member or friend?: No Do you have trouble with day-to-day activities such as bathing, preparing meals, shopping, managing finances, etc.?: No Are you currently unemployed and looking for a job?: No Are you interested in more education?: No THRIVE Score: 0 AUDIT C Alcohol Use Questionnaire (AUDIT-C) 1. How often do you have a drink containing alcohol?: 2-3 times a week 2. How many drinks containing alcohol do you have on a typical day when you are drinking?: 1 or 2 3. How often do you have six or more drinks on one occasion?: Never Total Score: 3 ABRIL-7 AMB Questionnaire ABRIL-7 Date ABRIL - 7 assessed: 01/11/24 Feeling nervous, anxious, or on edge: 0 = Not at all Not being able to stop or control worryin = Not at all Worrying too much about different things: 0 = Not at all Trouble relaxin = Not at all Being so restless that it is hard to sit still: 0 = Not at all Becoming easily annoyed or irritable: 0 = Not at all Feeling afraid as if something awful might happen: 0 = Not at all Total ABRIL-7 score (0-4 normal; 5-9 mild; 10-14 moderate; 15-21 severe): 0 Source: Developed by Drs. Salvador Stout, Dory Queen, Johnathon Zapata and colleagues, with an educational tamara from [employer]. Review of Systems Const Denies chills, Denies fatigue, Denies fever(s), Denies headache(s) and Denies weakness ENT Denies dizziness and Denies headache(s) Card Denies dyspnea Resp Denies cough, Denies dyspnea, Denies wheezing and Denies other (shortness of breath) Musc Denies numbness and Denies tingling Neuro Denies dizziness, Denies headache(s), Denies numbness, Denies tingling and Denies weakness Psych Denies anxiety and Denies depression Endo Denies fatigue Aller/Immun Denies wheezing Physical exam (Primary Care) Vital Signs: Last Vital Signs Pulse 71 01/11/24 13:17 BP 118/62 01/11/24 13:17 Pulse Ox 98 01/11/24 13:17 Oxygen Delivery Method Room Air 01/11/24 13:17 BMI result Body Mass Index 21.4 Tobacco/Smoking Status: Tobacco use Status Tobacco use date assessed 01/11/24 01/11/24 13:12 Patient Tobacco Use Status Never used Tobacco 01/11/24 13:06 e-Cigarette/Vaping Use Never Used 01/11/24 13:06 PHQ-9: PHQ-9 Score PHQ-9: Total score 0 01/11/24 13:36 Depression Screening Interpretation: Negative Thrive Assessment: Date of Thrive Assessment Date Thrive assessed 01/11/24 01/11/24 13:20 Const General: well developed; No acute distress Nutritional Appearance: well nourished Orientation/consciousness: patient oriented x3 HENMT Head: Yes normocephalic and Yes atraumatic Eyes General: appearance normal, both eyes and all related structures Pupils: Equal, round and reactive pupils present EOM: EOMs intact bilaterally Resp Effort & Inspection: normal respiratory effort Auscultation: clear to auscultation bilaterally Cardio Rate: regular rate Rhythm: regular rhythm Heart sounds: S1 normal heart sound present, S2 normal heart sound present, no gallops, no murmurs and no rubs Neuro General: patient oriented x3 and gait normal Cranial nerves: Yes Equal, round and reactive pupils present Extrem Other: RLE swelling Psych Affect: normal affect Assessment and Plan Assessment & Plan (1) Amyloidosis inherited systemic: 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 Continue?current?medication?and?follow-up?with?amyloidosis?center?in?[place] (2) Aortic stenosis: Code(s): I35.0 - Nonrheumatic aortic (valve) stenosis Plan: Probable?worsened?aortic?stenosis He?does?not?have?any?symptoms Followed?by?cardiology?and?they?will?repeat?echocardiogram?in?4?or?5?months (3) Orthostatic hypotension: Code(s): I95.1 - Orthostatic hypotension Plan: Currently?well?controlled?with?fludrocortisone Continue?current?medication (4) Weakness of both lower extremities: Code(s): R29.898 - Other symptoms and signs involving the musculoskeletal system Plan: Fairly?stable - partly?due?to?amyloidosis?and?deconditioning.? ?Continue?exercise. 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 Had?right?lower?extremity?cellulitis?which?has?resolved?with?Bactrim Continue?monitoring Can?try?Hibiclens?for?prevention Elevate?leg Coding Level of Care Code Est Pt Level 3 (13386) Diagnoses Amyloidosis inherited systemic E85.2 Aortic stenosis I35.0 Orthostatic hypotension I95.1 Weakness of both lower extremities R29.898 Swelling of right lower extremity M79.89
[2024-01-11 13:17] VITALS: BP 118/62; PULSE 71; O2SAT 98; BMI 21.4
== END 2024-01-11 14:09 | disposition home or self-care (01) ==
PROVIDERS: PCP Family Medicine; Visit Provider Family Medicine
DX: E85.2 Heredofamilial amyloidosis, unspecified (principal); I35.0 Nonrheumatic aortic (valve) stenosis; I95.1 Orthostatic hypotension; R29.898 Other symptoms and signs involving the musculoskeletal system; M79.89 Other specified soft tissue disorders
CPT/HCPCS: 99213

== ENCOUNTER 2024-01-17 11:44 | Outpatient (AMB) | payer MEDICARE, OTHER, SELFPAY ==
--- NOTE | 2024-01-17 11:48 | AM.OFFWIN_ITS ---
Intake Vital Signs 01/17/24 11:51 01/17/24 12:00 Height 6 ft 0.5 in Weight 130 lb BMI 17.4 BP 167/76 H 128/70 Blood Pressure Location Lt brachial Rt radial Position Sitting Sitting Respiration 16 Pulse 66 Pulse Source Pulse Oximeter Temp 97.7 F Temp Source Temporal Artery Scan Pulse Oximetry (%) 96 Oxygen Delivery Method Room Air Intake Visit Reasons: est/ cellulitus on right leg flaring up Intake Note: Cellulitis on right leg, started over the weekend. Has a history of cellulitis in right leg, this is the third time. Patient Tobacco Use Status: Current everyday Tobacco user Allergies No Known Allergies Allergy (Verified 01/17/24 11:50) Medication List - Last Reconciled 01/17/24 by An Bates PA-C aspirin (Adult Aspirin Regimen) 81 mg PO DAILY colesevelam 1,250 mg (2 x 625 mg) PO BID finasteride 5 mg PO DAILY fludrocortisone 0.05 mg (1/2 x 0.1 mg) PO QAM 90 days gabapentin 200 mg PO BID multivitamin (Daily Multi-Vitamin tablet) 1 tab PO DAILY vutrisiran (Amvuttra) 0.5 mL subcut [id number] Do you need a note to return to daycare/school/sports/work: No HPI est/ cellulitus on right leg flaring up HPI Details Patient is a 73-year-old male with a significant past medical history o f amyloidosis, lower extremity weakness and diminished sensation to the lower extremities presenting today with complaints of a cellulitis to his right lower leg. He saw his PCP about a week ago after scratching his right lower leg but there was no active sign of infection at that point. He was told to continue with bacitracin and advised to try Hibiclens to prevent cellulitis. He never picked up the Hibiclens but plans to today. He is concerned because he now thinks that he has a cellulitis. He states that the redness has increased and it is increased in temperature. He does not feel pain at baseline in his lower extremities. He has diminished sensation. He denies any fevers or chills. [facility] Medical History (Updated 01/11/24 @ 14:05 by Ziyad Robbins) Cellulitis Orthostatic hypotension Aortic stenosis Amyloidosis inherited systemic Surgical History History of carpal tunnel surgery History of biopsy History of surgery History of colonoscopy Family History Father Substance use disorder Mother Leukemia Brother No problems noted. Sister Seronegative rheumatoid arthritis Sister No problems noted. Daughter No problems noted. Social History Housing: House Alcohol intake: current Alcohol intake frequency: a few times a month Patient Tobacco Use Status: Current everyday Tobacco user e-Cigarette/Vaping Use: Never Used service: No Current occupational status: retired Current occupational exposures/hazards: No Cognitive needs: No Hearing needs: No Vision needs: No Physical Exam Vital Signs: Last Vital Signs Temp 97.7 F 01/17/24 11:51 Pulse 66 01/17/24 11:51 Resp 16 01/17/24 11:51 BP 128/70 01/17/24 12:00 Pulse Ox 96 01/17/24 11:51 Oxygen Delivery Method Room Air 01/17/24 11:51 BMI result Body Mass Index 17.4 Const Orientation/consciousness: patient oriented x3 HEENT Ears: hearing grossly normal bilaterally Neck Thyroid: Thyroid normal Lymphatic: no lymphadenopathy noted Resp Auscultation: clear to auscultation bilaterally Cardio Rate: regular rate Rhythm: regular rhythm Heart sounds: S1 normal heart sound present and S2 normal heart sound present Skin Other: There is an area of nonblanching, well demarcated erythema noted over the right anterior lower leg that is approximately 5 in x 3 in. No wound noted. No area of fluctuance or induration. Neuro General: patient oriented x3 Assessment & Plan Assessment & Plan (1) Cellulitis of right lower extremity without foot: Code(s): L03.115 - Cellulitis of right lower limb Plan: In the past he was treated with Bactrim but it caused worsening GI symptoms and diarrhea. He prefers to avoid this medication. We will try doxycycline. We discussed risks and benefits and adverse effects such as GI upset and a photosensitivity rash. He is going to hand picker the Hibiclens and try this as a preventative. We discussed the importance of checking his legs daily as he has diminished sensation. He was also encouraged to moisturize. Follow up if no improvement or if anything worsens or changes. Patient understands and agrees with the plan. Medications: New doxycycline hyclate 100 mg PO BID 20 tabs 0RF Coding Level of Care Code Est Pt Level 3 (77424) Diagnoses Cellulitis of right lower extremity without foot L03.115
[2024-01-17 11:51] VITALS: BP 167/76; PULSE 66; RESP 16; TEMP 36.5; O2SAT 96; BMI 17.4
[2024-01-17 12:00] VITALS: BP 128/70
== END 2024-01-17 13:11 | disposition home or self-care (01) ==
PROVIDERS: PCP Family Medicine; Visit Provider Physician Assistant
DX: L03.115 Cellulitis of right lower limb (principal)
CPT/HCPCS: 99213

== ENCOUNTER 2024-07-16 12:01 | Outpatient (AMB) | payer MEDICARE, OTHER, SELFPAY ==
--- NOTE | 2024-07-16 12:29 | A.OFFPC_ITS ---
Vital Signs 07/16/24 12:31 Height 6 ft 0.5 in Weight 166 lb 2 oz BMI 22.2 BP 140/70 H Blood Pressure Location Lt brachial Position Sitting Respiration 16 Pulse 68 Pulse Source Pulse Oximeter Temp 98.6 F Temp Source Oral Pulse Oximetry (%) 98 Oxygen Delivery Method Room Air Intake Visit Reasons: Follow up chronic conditions Intake Note: follow for chronic conditions Allergies No Known Allergies Allergy (Verified 07/16/24 12:30) Tobacco use date assessed: 01/11/24 Dental Screening Dental Screen Date: 01/11/24 HPI Follow up chronic conditions HPI Details 74 y/o male presents to f/u chronic cond itions. 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 They?know?that?his?neuro?exam/muscle?and?sensory?are?stable/improved. BNP?was?mildly?elevated?and?they?suspect?this?is?likely?due?to?aortic?sten osis.??His?troponin?levels?have?stabilized. ?Corey?does?not?feel?his?aortic?stenosis?requires?action?this?time.? His?EKG?does?suggests?evidence?of?advanced?conduction?disease?and?they?planned?a ?cardiac?monitoring?to?rule?out?any?high-degree?AV?block. They?recommended?stopping?aspirin.??Starting?Jardiance?10?mg?daily. They?will?continue?orthostatic?pressures?to?further?assess orthostatic?hypo tension?with?supine?hypertension. Suggested?he?may?need?to?wean?off?of?Florinef. Labs CK?259 H Sed?rate?36 H Phosphorus?2.6 L? D-Dimer 293 H BNP?327. ProBNP 3519 H H&H Normal Ferritin 233 H PT/INR elevated A1c 5.2% EKG?shows?sinus?rhythm?first-degree?AV?block, rightward?axis, lateral?T- wave?abnormality. Echocardiogram:??Left?ventricle?is?normal?in?size?with?mildly?increased?left?gonzalo tricula r?wall?thickness.??Left?ventricular?systolic?function?is?mildly?reduced;?EF?48%. Prior?EF?was?52%?in?05/2023. Aortic?valve?is?heavily?calcified?with?mild?aortic?regurgitation?and?moderate?ao rtic?stenosis Recommendation?was?to?continue?Vutrisiran Stop?aspirin?and?start?Jardiance [facility] Medical History (Updated 07/16/24 @ 13:28 by Dioni Quevedo MD) Cellulitis Orthostatic hypotension Aortic stenosis Amyloidosis inherited systemic Surgical History History of carpal tunnel surgery History of biopsy History of surgery History of colonoscopy Family History Father Substance use disorder Mother Leukemia Brother No problems noted. Sister Seronegative rheumatoid arthritis Sister No problems noted. Daughter No problems noted. Social History Housing: House Alcohol intake: current Alcohol intake frequency: a few times a month Patient Tobacco Use Status: Current everyday Tobacco user e-Cigarette/Vaping Use: Never Used service: No Current occupational status: retired Current occupational exposures/hazards: No Cognitive needs: No Hearing needs: No Vision needs: No Questionnaire PHQ-9 Over the last 2 weeks, how often have you been bothered by any of the following problems? 1. Little interest or pleasure in doing things: not at all 2. Feeling down, depressed, or hopeless: not at all 3. Trouble falling or staying asleep, or sleeping too much: not at all 4. Feeling tired or having little energy: not at all 5. Poor appetite or overeating: not at all 6. Feeling bad about yourself - or that you are a failure or have let yourself or your family down: not at all 7. Trouble concentrating on things, such as reading the newspaper or watching television: not at all 8. Moving or speaking so slowly that other people could have noticed. Or the opposite - being so fidgety or restless that you have been moving around a lot more than usual: not at all 9. Thoughts that you would be better off or of hurting yourself in some way: not at all Total score: 0 Source: Developed by Drs. Salvador Stout, Dory Queen, Johnathon Zapata and colleagues, with an educational tamara from [employer]. Thrive Questionnaire Date Thrive assessed: 01/11/24 I am a: Patient What is your living situation today?: I have a steady place to live Within the past 12 months, did the food you bought not last and you didn't have the money to get more?: Never true Within the past 12 months, did you worry whether your food would run out before you got money to buy more?: Never true Do you have trouble paying for medicines?: No Do you have trouble getting transportation to medical appointments?: No Do you have trouble paying your heating and electricity bill?: No Do you have trouble taking care of your child, family member or friend?: No Do you have trouble with day-to-day activities such as bathing, preparing meals, shopping, managing finances, etc.?: Yes Are you currently unemployed and looking for a job?: No Are you interested in more education?: No Please select the resources that you would like help with: None Currently or been in a relationship where the following occur: No concerns reported THRIVE Score: 0 AUDIT C Alcohol Use Questionnaire (AUDIT-C) 1. How often do you have a drink containing alcohol?: Monthly or less 2. How many drinks containing alcohol do you have on a typical day when you are drinking?: 1 or 2 3. How often do you have six or more drinks on one occasion?: Never Total Score: 1 ABRIL-7 AMB Questionnaire ABRIL-7 Date ABRIL - 7 assessed: 01/11/24 Feeling nervous, anxious, or on edge: 0 = Not at all Not being able to stop or control worryin = Not at all Worrying too much about different things: 0 = Not at all Trouble relaxin = Not at all Being so restless that it is hard to sit still: 0 = Not at all Becoming easily annoyed or irritable: 0 = Not at all Feeling afraid as if something awful might happen: 0 = Not at all Total ABRIL-7 score (0-4 normal; 5-9 mild; 10-14 moderate; 15-21 severe): 0 Source: Developed by Drs. Salvador L. GirishDory rodrigues, Johnathon Zapata and colleagues, with an educational tamara from [employer]. Review of Systems Const Denies chills, Denies fatigue, Denies fever(s), Denies headache(s) and Denies weakness ENT Denies dizziness and Denies headache(s) Card Denies dyspnea Resp Denies cough, Denies dyspnea, Denies wheezing and Denies other (shortness of breath) Musc Denies numbness and Denies tingling Neuro Denies dizziness, Denies headache(s), Denies numbness, Denies tingling and Denies weakness Psych Denies anxiety and Denies depression Endo Denies fatigue Aller/Immun Denies wheezing Physical exam (Primary Care) Vital Signs: Last Vital Signs Temp 98.6 F 07/16/24 12:31 Pulse 68 07/16/24 12:31 Resp 16 07/16/24 12:31 BP 140/70 H 07/16/24 12:31 Pulse Ox 98 07/16/24 12:31 Oxygen Delivery Method Room Air 07/16/24 12:31 BMI result Body Mass Index 22.2 Tobacco/Smoking Status: Tobacco use Status Tobacco use date assessed 01/11/24 07/16/24 12:36 Patient Tobacco Use Status Current everyday Tobacco 07/16/24 12:36 e-Cigarette/Vaping Use Never Used 07/16/24 12:36 PHQ-9: PHQ-9 Score PHQ-9: Total score 0 07/16/24 12:44 Thrive Assessment: Date of Thrive Assessment Date Thrive assessed 01/11/24 07/16/24 12:36 Currently or been in a relationship where the following occur: No concerns reported Const General: well developed; No acute distress Nutritional Appearance: well nourished Orientation/consciousness: patient oriented x3 [facility] Head: Yes normocephalic and Yes atraumatic Eyes General: appearance normal, both eyes and all related structures Pupils: Equal, round and reactive pupils present EOM: EOMs intact bilaterally Resp Effort & Inspection: normal respiratory effort Neuro General: patient oriented x3 and gait normal Cranial nerves: Yes Equal, round and reactive pupils present Psych Affect: normal affect Coding Level of Care Code Est Pt Level 4 (79002) Diagnoses Amyloidosis inherited systemic E85.2 Aortic stenosis I35.0 Orthostatic hypotension I95.1 First degree AV block I44.0 Mild anemia D64.9 Urinary hesitancy R39.11 Assessment & Plan Assessment & Plan (1) Amyloidosis inherited systemic: Code(s): 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 Continues?Vutisiran Will?recheck?BNP?and?also?source?level?and?renal?function. Follow-up?with?Cardiology Follow-up[facility]at[facility] (2) Aortic stenosis: Code(s): I35.0 - Nonrheumatic aortic (valve) stenosis Category: Medical Plan: Patient's?specialist?in?[place]?did?not?feel?that?this?required?action?at?this?ti me (3) Orthostatic hypotension: Code(s): I95.1 - Orthostatic hypotension Category: Medical Plan: Blood?pressures?fluctuate. He?will?continue?to?monitor?at?home Has?not?been?having?orthostatic?episodes?in?longer. Has?Florinef?which?he?takes?for?orthostasis. Follow-up?with?Cardiolog y?as?they?may?consider?discontinuing?this. 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 If?okay?with?Cardiology?we?trial?this. Orders: Orders Comprehensive [place]. Panel Fast Today E85.2 - Heredofamilial amyloidosis, unspecified, Z00.00 - Encounter for general adult medical examination without abnormal findings B Type Natriuretic Peptide Today E85.2 - Heredofamilial amyloidosis, unspecified, I50.9 - Heart failure, unspecified Phosphorus Today E85.2 - Heredofamilial amyloidosis, unspecified Complete Blood Count Auto Diff Today D64.9 - Anemia, unspecified, Z00.00 - Encounter for general adult medical examination without abnormal findings
[2024-07-16 12:31] VITALS: BP 140/70; PULSE 68; RESP 16; TEMP 37; O2SAT 98; BMI 22.2
== END 2024-07-16 13:28 | disposition home or self-care (01) ==
PROVIDERS: PCP Family Medicine; Visit Provider Family Medicine
DX: E85.2 Heredofamilial amyloidosis, unspecified (principal); I35.0 Nonrheumatic aortic (valve) stenosis; I95.1 Orthostatic hypotension; I44.0 Atrioventricular block, first degree; D64.9 Anemia, unspecified; R39.11 Hesitancy of micturition

== ENCOUNTER → 2024-07-16 12:01 | Outpatient (BNVA) | payer MEDICARE, OTHER, SELFPAY | PROVIDERS: PCP Family Medicine; Visit Provider Family Medicine | DX: E85.2 Heredofamilial amyloidosis, unspecified (principal); I35.0 Nonrheumatic aortic (valve) stenosis; I95.1 Orthostatic hypotension; I44.0 Atrioventricular block, first degree; D64.9 Anemia, unspecified; R39.11 Hesitancy of micturition | CPT/HCPCS: 96127; 99212 ==

== ENCOUNTER 2024-08-23 11:22 | Outpatient (REF) | payer MEDICARE, OTHER, SELFPAY ==
[2024-08-23 14:00] LABS: MANUAL DIFF FLAG NO
[2024-08-23 14:08] LABS: Basophils Percent Auto 0.7 % (0-2); Eosinophils Absolute Auto 0.1 X10*3/uL (0.0-0.4); Hematocrit 40.8 % (42.0-52.0); Hemoglobin 13.6 g/dl (14.0-18.0); Imm Gran Abs Auto 0.02 X10*3/uL (0.00-0.03); Imm Gran Pct Auto 0.4 % (0.0-0.4); Lymphocytes Absolute Auto 1.1 X10*3/uL (1.2-4.9); Lymphocytes Percent Auto 19.9 % (20-40); Mean Corpuscular HGB Conc 33.3 g/dl (31.0-36.0); Mean Corpuscular Hemoglobin 30.1 pg (27.0-33.0); Mean Corpuscular Volume 90.3 fL (80.0-98.0); Mean Platelet Volume 10.3 fL (9.4-12.4); Monocytes Absolute Auto 0.5 X10*3/uL (0.1-1.2); Monocytes Percent Auto 9.8 % (2-11); Neutrophils Absolute Auto 3.7 x10*3/uL (2.0-8.3); Neutrophils Percent Auto 67.2 % (45-73); Platelet Count 198 X10*3/uL (160-400); Red Blood Count 4.52 X10*6/uL (4.60-5.80); Red Cell Distribution Width 13.5 % (11.0-16.0); White Blood Count 5.5 X10*3/uL (4.8-10.8)
[2024-08-23 14:24] LABS: Alanine Aminotransferase 24 U/L (0-40); Albumin Level 3.8 g/dL (3.5-5.0); Alkaline Phosphatase 81 U/L (39-117); Anion Gap 7 (12-20); Aspartate Amino Transferase 35 U/L (5-37); Bilirubin Total 0.7 mg/dL (0.0-1.0); Blood Urea Nitrogen 14 mg/dL (9-16); Calcium 8.7 mg/dL (8.4-10.2); Carbon Dioxide 31 mmol/L (22-29); Chloride 107 mmol/L (96-108); Estimated Glomerular Filt Rate > 60; Glucose Fasting 79 mg/dL (60-99); Phosphorus 2.9 mg/dL (2.7-4.5); Potassium 4.3 mmol/L (3.3-5.1); Sodium 141 mmol/L (135-145); Total Protein 6.7 g/dL (6.5-8.0)
[2024-08-23 14:34] LABS: B Type Natriuretic Peptide 235 pg/mL (<100)
== END 2024-08-23 11:23 | disposition home or self-care (01) ==
LOC: HO.WFDLDS 11:22
PROVIDERS: Visit Provider Family Medicine
DX: Z00.00 Encounter for general adult medical examination without abnormal findings (principal); D64.9 Anemia, unspecified; E85.2 Heredofamilial amyloidosis, unspecified; I50.9 Heart failure, unspecified
CPT/HCPCS: 36415; 80053; 83880; 84100; 85025

== ENCOUNTER 2024-08-28 16:49 | Outpatient (AMB) | payer MEDICARE, OTHER, SELFPAY ==
--- NOTE | 2024-08-28 16:46 | MHC.PC.OV ---
Intake Visit Reasons: fu labs Allergies No Known Allergies Allergy (Verified 08/28/24 16:46) Tobacco use date assessed: 01/11/24 Dental Screening Dental Screen Date: 01/11/24 HPI fu labs HPI Details 74 y/o male presents to review labs via telemedicine. Labs drawn 08/23/24. Reviewed labs with pt. Mild anemia. BNP 235 pg/mL. HPI Comments History of Present Illness Details Documentation assistance for Dioni Quevedo MD, was provided by Ziyad Robbins,? Credit And Collections Representative on 08/28/2024 at 5:48 PM EST. I, Dr. Quevedo, have read, observed, and verified documentation. ?? [facility] Medical History (Updated 07/16/24 @ 13:28 by Dioni Quevedo MD) Cellulitis Orthostatic hypotension Aortic stenosis Amyloidosis inherited systemic Surgical History History of carpal tunnel surgery History of biopsy History of surgery History of colonoscopy Family History Father Substance use disorder Mother Leukemia Brother No problems noted. Sister Seronegative rheumatoid arthritis Sister No problems noted. Daughter No problems noted. Social History Housing: House Alcohol intake: current Alcohol intake frequency: a few times a month Patient Tobacco Use Status: Current everyday Tobacco user e-Cigarette/Vaping Use: Never Used service: No Current occupational status: retired Current occupational exposures/hazards: No Cognitive needs: No Hearing needs: No Vision needs: No Questionnaire Thrive Questionnaire Date Thrive assessed: 07/16/24 I am a: Patient What is your living situation today?: I have a steady place to live Within the past 12 months, did the food you bought not last and you didn't have the money to get more?: Never true Within the past 12 months, did you worry whether your food would run out before you got money to buy more?: Never true Do you have trouble paying for medicines?: No Do you have trouble getting transportation to medical appointments?: No Do you have trouble paying your heating and electricity bill?: No Do you have trouble taking care of your child, family member or friend?: No Do you have trouble with day-to-day activities such as bathing, preparing meals, shopping, managing finances, etc.?: Yes Are you currently unemployed and looking for a job?: No Are you interested in more education?: No Please select the resources that you would like help with: None Currently or been in a relationship where the following occur: No concerns reported THRIVE Score: 0 AUDIT C Alcohol Use Questionnaire (AUDIT-C) 2. How many drinks containing alcohol do you have on a typical day when you are drinking?: 1 or 2 3. How often do you have six or more drinks on one occasion?: Never Total Score: 0 ABRIL-7 AMB Questionnaire ABRIL-7 Date ABRIL - 7 assessed: 01/11/24 Source: Developed by Drs. Salvador Stout, Dory Queen, Johnathon Zapata and colleagues, with an educational tamara from [employer]. Review of Systems Const Denies chills, Denies fatigue, Denies fever(s), Denies headache(s) and Denies weakness ENT Denies dizziness and Denies headache(s) Card Denies dyspnea Resp Denies cough, Denies dyspnea, Denies wheezing and Denies other (shortness of breath) Musc Denies numbness and Denies tingling Neuro Denies dizziness, Denies headache(s), Denies numbness, Denies tingling and Denies weakness Psych Denies anxiety and Denies depression Endo Denies fatigue Aller/Immun Denies wheezing Physical exam (Primary Care) Tobacco/Smoking Status: Tobacco use Status Tobacco use date assessed 01/11/24 08/28/24 16:48 Patient Tobacco Use Status Current everyday Tobacco 08/28/24 16:48 e-Cigarette/Vaping Use Never Used 08/28/24 16:48 Thrive Assessment: Date of Thrive Assessment Date Thrive assessed 07/16/24 08/28/24 16:48 Currently or been in a relationship where the following occur: No concerns reported Telehealth Telehealth Telehealth Platform: Telephone Location of provider rendering services: practice address Location of patient: address on file Patient Identification confirmed using: Name, : Yes Telehealth method: voice only Patient verbally consented to treatment: Yes Patient verbally consented to billing insurance company: Yes Patient informed of any privacy concerns related to visit: Yes Minutes spent on Phone/Video with Pt.: 14 Coding Level of Care Code Tele Est Pt Level 2 (79403) Diagnoses Amyloidosis inherited systemic E85.2 Mild anemia D64.9 Urinary hesitancy R39.11 First degree AV block I44.0 Assessment & Plan Assessment & Plan (1) Amyloidosis inherited systemic: Code(s): E85.2 - Heredofamilial amyloidosis, unspecified Category: Medical Plan: Patient?has?history?of?amyloidosis?and?is?on?Vutisiran which?he?is?tolerating?well. BNP?remains?stable Continue?current?medication Follow-up?with?Cardiology?in?[place]?and?local?corporate development officer,??[place] (2) Mild anemia: Code(s): D64.9 - Anemia, unspecified Category: Medical Plan: Mild?anemia?which?is?stable Will?continue?monitor (3) Urinary hesitancy: Code(s): R39.11 - Hesitancy of micturition Category: Medical Plan: Mild?urinary?hesitancy?and?patient?is?on?finasteride.??He?notes?that?urine?stream?is?acceptable. He?had?wondered?about?Flomax?but?given?his?history?of?orthostasis?I?recommended?against?resuming?this?unless?stream?significantly?worsens?and?he?has?discussed?with?his?cardiologists (4) First degree AV block: Code(s): I44.0 - Atrioventricular block, first degree Category: Medical Plan: History?of?first-degree?AV?block.??He?will?discuss?a?hold?her?test?with?his?corporate development officer?when?sees?him?in?November Patient?is?asymptomatic.
== END 2024-08-28 17:05 | disposition home or self-care (01) ==
LOC: HO.HMCFM 16:49
PROVIDERS: PCP Family Medicine; Visit Provider Family Medicine
DX: E85.2 Heredofamilial amyloidosis, unspecified (principal); D64.9 Anemia, unspecified; R39.11 Hesitancy of micturition; I44.0 Atrioventricular block, first degree

== ENCOUNTER 2024-09-10 12:56 | Outpatient (AMB) | payer MEDICARE, OTHER, SELFPAY ==
--- NOTE | 2024-09-10 13:03 | AM.OFFWIN_ITS ---
Intake Vital Signs 3 09/10/24 13:07 Height 6 ft 0.5 in BMI Reason not done Patient refused/unable BP 142/78 H Blood Pressure Location Lt brachial Position Sitting Respiration 13 Pulse 78 Pulse Source Pulse Oximeter Temp 97.1 F Temp Source Oral Pulse Oximetry (%) 98 Oxygen Delivery Method Room Air Intake Visit Reasons: celluitus and twisted ankle Intake Note: Patient complaining of left twisted ankle and bruised last Monday, patient thinks is cellulites on left foot. Patient Tobacco Use Status: Current everyday Tobacco user Allergies No Known Allergies Allergy (Verified 09/10/24 13:10) Medication List - Last Reconciled 09/10/24 by Brenda Douglas, COUNSELING CASE MANAGER-[employer] colesevelam 1,250 mg (2 x 625 mg) PO BID 90 days finasteride 5 mg PO DAILY fludrocortisone 0.05 mg (1/2 x 0.1 mg) PO QAM 90 days gabapentin 300 mg PO BID multivitamin (Daily Multi-Vitamin tablet) 1 tab PO DAILY vutrisiran (Amvuttra) 0.5 mL subcut [id number] Do you need a note to return to daycare/school/sports/work: No HPI HPI Comments 2 History of Present Illness0 Details 74-year-old male here today with chief c omplaints of a fall and concern for cellulitis on the left ankle The fall occurred last Monday walks w walker at baseline d/t amyloidosis knees buckled and fell in hallway Left leg went under him and twisted L ankle was able to get up onto the couch had some pain not sharp more sore elevated and iced Thur am was still able to bear weight Monday and monday a little better on Monday got the chills ; has been applying cream and cont to ice and elevate hx of cellulitis x 2 it is swollen and warm it bruised but is better Cont to be able to bear weight Exam Awake alert oriented NAD, sitting in wheelchair accompanied by Left foot neurovasc intact, hard to appreciate pedal pulses d/t edema the skin is erythematous and warm there is bruising which extends roni the toes to the bottom of the foot has some edema in the left lower lef that is trace to +1 There is no streaking See pictures Plan We will start doxycycline 100 mg p.o. b.i.d. x7 days. Patient has taken this and tolerated it well in the past. Also discuss referral to Orthopedics versus imaging to evaluate for any fracture or tendon or ligament involvement. At this time he would like to hold off. I have advised for him to continue to elevate and ice. Epsom salt soaks or okay to to help. I would like to see him back in about 1 week to ensure resolution and proper healing. Also educated that should his symptoms get worse and he should be seen right away and he should not wait. If his symptoms are completely resolved it was okay for him to cancel the 1 week follow up however advised strongly to f/u to ensure proper trajectory. Total time spent caring for the patient today was 30 minutes. This includes time spent before the visit reviewing the chart, time spent during the visit, and time spent after the visit on documentation, reviewing laboratory results, diagnostic imaging, medications, performing a medically necessary evaluation, counseling on diagnoses, care coordination, ordering appropriate tests, ordering appropriate medications, review of tests performed by other providers, reporting test results with the patient, communication with other healthcare providers. [facility] Medical History (Updated 09/10/24 @ 13:29 by Brenda Douglas, [facility]) Amyloidosis inherited systemic Aortic stenosis Cellulitis Orthostatic hypotension Surgical History History of biopsy History of carpal tunnel surgery History of colonoscopy History of surgery Family History Father Substance use disorder Mother Leukemia Brother No problems noted. Sister Seronegative rheumatoid arthritis Sister No problems noted. Daughter No problems noted. Social History Housing: House Alcohol intake: current Alcohol intake frequency: a few times a month Patient Tobacco Use Status: Current everyday Tobacco user e-Cigarette/Vaping Use: Never Used service: No Current occupational status: retired Current occupational exposures/hazards: No Cognitive needs: No Hearing needs: No Vision needs: No Physical Exam Vital Signs: Last Vital Signs Temp 97.1 F 09/10/24 13:07 Pulse 78 09/10/24 13:07 Resp 13 09/10/24 13:07 BP 142/78 H 09/10/24 13:07 Pulse Ox 98 09/10/24 13:07 Oxygen Delivery Method Room Air 09/10/24 13:07 Assessment & Plan Assessment & Plan (1) Fall: Code(s): W19.XXXA - Unspecified fall, initial encounter Qualifiers: Encounter type: initial encounter Qualified Code(s): W19.XXXA - Unspecified fall, initial encounter (2) Cellulitis of foot: Comment: left Code(s): L03.119 - Cellulitis of unspecified part of limb (3) Amyloidosis inherited systemic: Code(s): E85.2 - Heredofamilial amyloidosis, unspecified Plan . Medications: New 2 doxycycline hyclate 100 mg PO BID 7 days 14 caps 0RF Coding Level of Care Code Est Pt Level 4 (62842) Diagnoses Fall, initial encounter W19.XXXA Encounter type: initial encounter Cellulitis of foot L03.119 Amyloidosis inherited systemic E85.2
[2024-09-10 13:07] VITALS: BP 142/78; PULSE 78; RESP 13; TEMP 36.2; O2SAT 98
== END 2024-09-10 13:28 | disposition home or self-care (01) ==
PROVIDERS: PCP Family Medicine; Visit Provider Nurse Practitioner Family
DX: L03.119 Cellulitis of unspecified part of limb (principal); W19.XXXA Unspecified fall, initial encounter; E85.2 Heredofamilial amyloidosis, unspecified

== ENCOUNTER → 2024-09-10 12:56 | Outpatient (BNVA) | payer MEDICARE, OTHER, SELFPAY | PROVIDERS: PCP Family Medicine; Visit Provider Nurse Practitioner Family | DX: L03.116 Cellulitis of left lower limb (principal); E85.2 Heredofamilial amyloidosis, unspecified; W19.XXXA Unspecified fall, initial encounter | CPT/HCPCS: 99212 ==

== ENCOUNTER → 2024-09-18 12:58 | Outpatient (BNVA) | payer MEDICARE, OTHER, SELFPAY | PROVIDERS: PCP Family Medicine; Visit Provider Nurse Practitioner Family ==

== ENCOUNTER → 2024-09-18 12:58 | Outpatient (AMB) | payer MEDICARE, OTHER, SELFPAY ==
--- NOTE | 2024-09-18 13:22 | A.OFFPC_ITS ---
Intake Visit Reasons: 1 week w jw salas or Dr Brandon Barnes ankle Allergies No Known Allergies Allergy (Verified 09/18/24 13:24) Medication List - Last Reconciled 09/18/24 by ANTOINE Renee- colesevelam 1,250 mg (2 x 625 mg) PO BID 90 days doxycycline hyclate 100 mg PO BID 5 days finasteride 5 mg PO DAILY fludrocortisone 0.05 mg (1/2 x 0.1 mg) PO QAM 90 days gabapentin 300 mg PO BID multivitamin (Daily Multi-Vitamin tablet) 1 tab PO DAILY vutrisiran (Amvuttra) 0.5 mL subcut [id number] Tobacco use date assessed: 01/11/24 Dental Screening Dental Screen Date: 01/11/24 HPI HPI Comments 2 History of Present Illness0 Details Telehealth appt today, Close interim FU LLE cellulitis The cellulitis was noted to have improved significantly since the last visit, with reduced swelling and healing progress. However, some mild swelling persists, and the patient seeks to continue antibiotics to ensure resolution. He has completed two courses of antibiotics in the past, but he stopped the second course on the eighth day, which resulted in some leftover pills. He took his last dose of doxycycline today, and there is no fever or chills present. The patient also reported a fall due to both knees buckling while returning from the bathroom at midnight. He plans to contact his neurological physical therapist for potential interventions to strengthen his knees. No streaking or signs of systemic infection were noted. Discussion Notes During the consultation, I discussed the continuance of doxycycline for an additional five days, one tablet twice daily, to ensure full resolution of the cellulitis. I provided assurance that the ongoing healing and absence of fever or systemic signs are positive indicators yet emphasized monitoring for signs of increased redness, warmth, or streaking. We addressed the recent fall and knee buckling, and I suggested using a bedside commode temporarily for safety until further assessment and physical therapy intervention. The patient expressed understanding and acceptance of the plan. Patient Instructions - Continue doxycycline for five more day s, as prescribed. - Monitor the ankle for fever, redness, or warmth. - Use a bedside commode to avoid falls, and contact a physical therapist. - Seek medical attention if symptoms wor sen or new symptoms appear. Plan - For cellulitis of the L ankle, continu e doxycycline for five days to ensure full resolution. - No new antibiotics or changes in syste saleem treatment given the absence of fever or systemic signs. - Address knee buckling by consulting a neurological physical therapist and employing safety measures such as a bedside commode to prevent falls. Patient was informed and verbally consented to the use of an ambient scribe for clinic note documentation during this visit. Total time spent caring for the patient today was 15 minutes. This includes time spent before the visit reviewing the chart, time spent during the visit, and time spent after the visit on documentation, reviewing laboratory results, diagnostic imaging, medications, performing a medically necessary evaluation, counseling on diagnoses, care coordination, ordering appropriate tests, ordering appropriate medications, review of tests performed by other providers, reporting test results with the patient, communication with other healthcare providers. [facility] Medical History (Updated 09/18/24 @ 13:27 by Brenda Douglas, [facility]) Amyloidosis inherited systemic Aortic stenosis Cellulitis Orthostatic hypotension Surgical History (Reviewed 01/11/24 @ 13:12 by Nancy Phillips [facility]) History of biopsy History of carpal tunnel surgery History of colonoscopy History of surgery Family History Father Substance use disorder Mother Leukemia Brother No problems noted. Sister Seronegative rheumatoid arthritis Sister No problems noted. Daughter No problems noted. Social History (Reviewed 01/11/24 @ 13:12 by Nancy Phillips [facility]) Housing: House Alcohol intake: current Alcohol intake frequency: a few times a month Patient Tobacco Use Status: Current everyday Tobacco user e-Cigarette/Vaping Use: Never Used service: No Current occupational status: retired Current occupational exposures/hazards: No Cognitive needs: No Hearing needs: No Vision needs: No Questionnaire Thrive Questionnaire Date Thrive assessed: 07/16/24 ABRIL-7 AMB Questionnaire ABRIL-7 Date ABRIL - 7 assessed: 01/11/24 Source: Developed by Drs. Salvador Stout, Dory Queen, Johnathon Zapata and colleagues, with an educational tamara from [employer]. Physical exam (Primary Care) Tobacco/Smoking Status: Tobacco use Status Tobacco use date assessed 01/11/24 08/28/24 16:48 Patient Tobacco Use Status Current everyday Tobacco 09/10/24 13:04 e-Cigarette/Vaping Use Never Used 08/28/24 16:48 Thrive Assessment: Date of Thrive Assessment Date Thrive assessed 07/16/24 08/28/24 16:48 Telehealth Telehealth Telehealth Platform: [employer] Location of provider rendering services: practice address Location of patient: address on file Patient Identification confirmed using: Name, : Yes Telehealth method: voice only Patient verbally consented to treatment: Yes Patient verbally consented to billing insurance company: Yes Patient informed of any privacy concerns related to visit: Yes Minutes spent on Phone/Video with Pt.: 7 Coding Level of Care Code Tele Est Pt Level 2 (66619) Complex EM visit Add On G2211 Diagnoses Cellulitis of foot L03.119 Fall, initial encounter W19.XXXA Encounter type: initial encounter Assessment & Plan Assessment & Plan (1) Cellulitis of foot: Comment: left Code(s): L03.119 - Cellulitis of unspecified part of limb Category: Medical (2) Fall: Code(s): W19.XXXA - Unspecified fall, initial encounter Category: Medical Qualifiers: Encounter type: initial encounter Qualified Code(s): W19.XXXA - Unspecified fall, initial encounter Plan . Medications: Changed 2 From doxycycline hyclate 100 mg PO BID 7 days 14 caps 0RF To doxycycline hyclate 100 mg PO BID 5 days 10 caps 0RF
== END ==
LOC: HO.HMCFM 12:58
PROVIDERS: PCP Family Medicine; Visit Provider Nurse Practitioner Family
DX: L03.119 Cellulitis of unspecified part of limb (principal); W19.XXXA Unspecified fall, initial encounter

== ENCOUNTER 2024-12-05 12:21 | Outpatient (AMB) | payer MEDICARE, OTHER, SELFPAY ==
[2024-12-05 12:41] VITALS: BP 122/74; PULSE 70; BMI 22.4
--- NOTE | 2024-12-05 12:41 | MHC.OFFVIS ---
Vital Signs 12/05/24 12:41 Height 6 ft 0.05 in Weight 165 lb 5.547 oz BMI 22.4 BP 122/74 Blood Pressure Location Lt brachial Position Sitting Pulse 70 Intake Visit Reasons: 1 yr f/up Intake Note: 1 year follow-up with ekg c/o increased swelling Wound Care Physician Required: No Staff Pharmacist Hospital: Staff Pharmacist Hospital Present Accompanied by: Spouse Allergies No Known Allergies Allergy (Verified 09/18/24 13:24) Medication List - Last Reconciled 12/05/24 by Basim Sumner MD colesevelam 300 mg PO BID finasteride 5 mg PO DAILY fludrocortisone 0.05 mg (1/2 x 0.1 mg) PO QAM 90 days gabapentin 300 mg PO BID multivitamin (Daily Multi-Vitamin tablet) 1 tab PO DAILY vutrisiran (Amvuttra) 0.5 mL subcut [id number] HPI Comments Details: Wilmar comes for follow-up, accompanied by his . He has been seen by amyloid neuromuscular clinic as well as cardiology clinic visit and had an echocardiogram last May in [place] but do not have the copy of the same. Echocardiogram done last year here was suggestive of paradoxical low-flow severe aortic stenosis. Patient comes for follow-up. Has been noticing with his usual walking distances up to 6 minutes he does get short of breath now. He also notices bilateral lower extremity edema. He is currently on Florinef which she needs to take for his orthostatic hypotension. He said occasionally his blood pressure systolic 90 and he does not feel well and blood pressure improves with Florinef and he feels better after that. At other times blood pressure is within normal limits. He has not had any syncopal episodes. Denies any exertional chest pain or exertional lightheadedness. He said his overall neurohormonal circular function has improved. He had a pro BNP level done during 1 of the visit in [place] which was significantly elevated in the 3200 range. He was advised at that time to gradually taper off Florinef therapy but this has not happened. [facility] Medical History Cellulitis Orthostatic hypotension Aortic stenosis Amyloidosis inherited systemic Surgical History History of carpal tunnel surgery History of biopsy History of surgery History of colonoscopy Family History Father Substance use disorder Mother Leukemia Brother No problems noted. Sister Seronegative rheumatoid arthritis Sister No problems noted. Daughter No problems noted. Social History Housing: House Alcohol intake: current Alcohol intake frequency: a few times a month Patient Tobacco Use Status: Current everyday Tobacco user e-Cigarette/Vaping Use: Never Used service: No Current occupational status: retired Current occupational exposures/hazards: No Cognitive needs: No Hearing needs: No Vision needs: No Review of Systems Const Denies chills, Denies fatigue, Denies fever(s), Denies frequent falls, Denies weakness, Denies weight gain and Denies weight loss ENT Denies dizziness Card Denies chest pain, Denies leg edema, Denies lightheadedness, Denies palpitations, Denies dyspnea, Denies dyspnea on exertion, Denies orthopnea and Denies other (loss of consciousness) Resp Denies cough, Denies dyspnea and Denies dyspnea on exertion GI Denies hematochezia and Denies change in stool character Musc Denies abnormal gait, Denies muscle weakness, Denies numbness, Denies radiating pain into limb and Denies tingling Neuro Denies abnormal gait, Denies dizziness, Denies frequent falls, Denies numbness, Denies tingling and Denies weakness Endo Denies fatigue and Denies palpitations Physical Exam Vital Signs: Last Vital Signs Pulse 70 12/05/24 12:41 BP 122/74 12/05/24 12:41 BMI result Body Mass Index 22.4 Const General: cooperative, comfortable, no acute distress, alert, awake and well groomed Nutritional Appearance: thin Orientation/consciousness: patient oriented x3 Limitations: ambulation with walker Neck Neck: Yes trachea midline, Yes supple and Yes JVD Carotids: delayed carotid upstroke Resp Effort & Inspection: normal respiratory effort Auscultation: clear to auscultation bilaterally Cardio Jugular venous distension: JVD Palpation: normal PMI Rate: regular rate Rhythm: regular rhythm Heart sounds: S1 normal heart sound present, Murmur heart sound present systolic late, decrescendo and crescendo and Other heart sounds present (Soft test to) GI Auscultation: normal bowel sounds Skin General skin exam: no rashes or lesions noted Neuro General: patient oriented x3 and no focal motor deficits Extrem General: No clubbing, No cyanosis and Yes edema (One to 2+ on right greater than left) Psych Appearance: grossly normal Office Procedures EKG Details: EKG shows sinus rhythm with first-degree AV block with left bundle-branch block which is new, last year was more IV CD with left bundle-branch morphology [id number], Complete Assessment & Plan Assessment & Plan (1) Leg edema: Code(s): R60.0 - Localized edema Category: Medical Plan: Patient with increasing leg swelling as well as some exertional shortness of breath with elevated pro BNP done in [place] is most suggestive of incipient congestive heart failure. I think at this point time therapy with Florinef would be contraindicated. I have advised him to stop Florinef therapy. See below for orthostatic hypotension management. Most likely related to either progressive LV systolic diastolic dysfunction and/or RV dysfunction or possibly progressive severe aortic stenosis. We will obtain an echocardiogram in near future. Will also repeat baseline BNP and BNP today at this health system so that we can have future comparison for the same. For now will hold off on diuretic regimen and just come off the Florinef therapy. Advised to follow-up with me over the telephone the next 1-2 weeks to see if his leg edema has improved off Florinef therapy. He understands and agrees. Other signs of heart failure were discussed. (2) Aortic stenosis: Code(s): I35.0 - Nonrheumatic aortic (valve) stenosis Category: Medical Plan: Aortic stenosis which by last echocardiogram was paradoxical low-flow severe aortic stenosis. Had repeat echocardiogram [place] although do not have the copy of the same. Will repeat echocardiogram here again to see if there is any progression in aortic stenosis and/or LV systolic and diastolic dysfunction which makes him more prone to develop heart failure syndrome. If he does have truly significant aortic stenosis may benefit from transcatheter aortic valve replacement evaluation. Was discussed with him. Continue low-dose aspirin therapy. 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 He does have significant symptoms with low blood pressure when the blood pressure in the 90s. Has done well with Florinef therapy over the years but at this point time has developed symptoms suggestive of heart failure were discontinue Florinef therapy will start him on midodrine at 1.25 mg 3 times a day. He has had intolerance to midodrine in the past with elevated blood pressure. Advised to monitor blood pressure at home closely. If intolerant to midodrine may consider pyridostigmine and/or Northera therapy. 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 Currently on vutrisiran therapy for the same which she is tolerating well. Not sure if there is progressive cardiac dysfunction at this point time given his symptoms suggestive of heart failure. Will follow-up echocardiogram. However his neurologic symptoms have improved. 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 Follow up in the clinic in 2 months time. Greater than 40 minutes was spent in managing his complex care. Orders: Orders CA echo transthoracic complete Today Basim Sumner MD I35.0 - Nonrheumatic aortic (valve) stenosis, R60.0 - Localized edema B Type Natriuretic Peptide Today Basim Sumner MD R60.0 - Localized edema Basic Metabolic Panel Today Basim Sumner MD R60.0 - Localized edema Medications: New midodrine do not give last dose of day after 6PM or within 4 hrs of bedtime 1.25 mg (1/2 x 2.5 mg) PO TID 90 tabs 1RF Basim Sumner MD R60.0 - Localized edema Changed From colesevelam 1,250 mg (2 x 625 mg) PO BID 90 days 360 tabs 0RF To colesevelam 300 mg PO BID Jazmin Mckoy MD Discontinued fludrocortisone Discontinued Reason: Doctor's Order 0.05 mg (1/2 x 0.1 mg) PO QAM 90 days 45 tabs 3RF Coding Level of Care Code Est Pt Level 5 (38680) Complex EM visit Add On G2211 Diagnoses Leg edema R60.0 Aortic stenosis I35.0 Orthostatic hypotension I95.1 Amyloidosis inherited systemic E85.2 CPT Codes EKG - CPT: [id number], Complete ([id number])
--- OUTSIDE RECORDS SUMMARY | 2024-12-05 14:38 | XMS_ITS | Continuity of Care Document ---
Author Organization [facility] Address [address], [address], [address] [place] [id number]- Care Team Providers Care Car Repair Supervisor Name Role Phone Sae LAGUNA, Dioni Veliz Primary Care Physician [place] [facility] [place]): [place] 12/01/24 [facility] [address], [address] [place] [id number]- Attending Physician: Fabiola Rangel Admitting Physician: Fabiola Rangel Referring Physician: Fabiola Rangel Encounter Type: Triage Allergies, Adverse Reactions, Alerts No Known Medication Allergies Immunizations Given and Recorded Vaccine Date Status Refusal Reason SARS-CoV-2 (COVID-19) mRNA-1273 vaccine 11/11/20 G iven SARS-CoV-2 (COVID-19) mRNA-1273 vaccine 10/07/20 G iven Medications Adult Aspirin = 81 mg, By Mouth, Daily, 0 Refills, Maintenance, 12/06/22 3:32:00 PM EDT, Partial fill upon patientrequest if the prescription is for a schedule II opioid drug. Start Date: 12/06/22 Status: Ordered Repeat number: 1 Amvuttra 25 mg/0.5 mL subcutaneous solution = 25 mg, Subcutaneous Infusion, Every 3 months, 0 Refills, Maintenance, 12/06/22 3:33:00 PM EDT, Partial fill upon patient request if the prescription is for a schedule II opioid drug. Start Date: 12/06/22 Status: Ordered Repeat number: 1 finasteride 5 mg oral tablet 1 tablet = 5 mg, By Mouth, Daily, # 30 tablet, 0 Refills, Maintenance, 08/15/19 11:09:00 AM EST, Tablet Start Date: 08/15/19 Status: Ordered Quantity: 30.0 Unit: tablet Repeat number: 1 fludrocortisone 0.1 mg oral tablet 1 tablet = 0.1 mg, By Mouth, Daily, 0 Refills, Maintenance, 08/15/19 11:09:00 AM EST Start Date: 08/15/19 Status: Ordered Repeat number: 1 gabapentin 300 mg oral capsule 300 mg, 1, capsule, By Mouth, 2 times a day, # 180 capsule, Refills 2, Tot. Refills 2, Maintenance,04/22/24 11:25:00 AM EDT, Route to Pharmacy Electronically, [facility]/pharmacy #[id number], Partial fill upon patient request if the prescription is for a schedule II opioid drug., 183, cm, 10/13/23 11:05:00 EST, Height, 73.3, kg, 03/05/24 11:46:00 EDT, Dry Weight Start Date: 04/22/24 Stop Date: 01/17/25 Status: Ordered Quantity: 180.0 Unit: capsule Repeat number: 3 Misc Rx See Instructions, Refills 0, Maintenance, Immodium 2mg PRN, 10/04/19 11:45:00 AM EST, Compound Start Date: 10/04/19 Status: Ordered Repeat number: 1 Multivitamin See Instructions, once daily in morning- Daily- one-a-day (includes 4,000 iu of vitamin A), 0 Refills, Maintenance, 10/04/19 11:43:00 AM EST Start Date: 10/04/19 Status: Ordered Repeat number: 1 pepto bismol chewable pepto bismol chewable, Refills 0, Maintenance, 04/15/21 11:05:00 AM EDT, Supply Start Date: 04/15/21 Status: Ordered Repeat number: 1 Simethicone By Mouth, 0 Refills, Maintenance, 04/15/21 11:05:00 AM EDT, Partial fill upon patient request if the prescription is for a schedule II opioid drug. Start Date: 04/15/21 Status: Ordered Repeat number: 1 Tylenol Extra Strength 500 mg oral tablet 1 tablet = 500 mg, By Mouth, Every 8 hours, PRN as needed for fever, # 24 tablet, 0 Refills, Maintenance, 08/15/19 11:06:00 AM EST, Tablet Start Date: 08/15/19 Status: Ordered Quantity: 24.0 Unit: tablet Repeat number: 1 Patient Care team information Care Team Personnel Name: Siena Rai RN Position: [facility] RN Member Role: Primary Care Nurse Name: Dioni Quevedo MD Position: [facility] Outreach Member Role: PCP Address: [address] [place], [place] [id number] Telecom: Name: Ade Garcia RN Position: [facility] AMB Nurse Member Role: Primary Care Nurse Name: Rani Guaman RN Position: [facility] RN Member Role: Primary Care Nurse Care Team Related Persons Name: CARMEN PANDA Insurance Providers Guarantor name: CHARLA PANDA Health Plan Information #: 1 Payer: MEDICARE PART B OUTPT Member Number: NA Policy Number: NA Group Number: NA Health Plan Information #: 2 Payer: I10 MEDICARE SUPPL [id number] Member Number: NA Policy Number: NA Group Number: NA
== END 2024-12-05 13:24 | disposition home or self-care (01) ==
LOC: HO.HCS 12:21
PROVIDERS: PCP Family Medicine; Visit Provider Internal Medicine Cardiovascular Disease
DX: R60.0 Localized edema (principal); I35.0 Nonrheumatic aortic (valve) stenosis; I95.1 Orthostatic hypotension; E85.2 Heredofamilial amyloidosis, unspecified
CPT/HCPCS: 93010; 99214; G2211

== ENCOUNTER → 2024-12-05 12:21 | Outpatient (BNVA) | payer MEDICARE, OTHER, SELFPAY | PROVIDERS: PCP Family Medicine; Visit Provider Internal Medicine Cardiovascular Disease | DX: Z13.89 Encounter for screening for other disorder (principal) | CPT/HCPCS: 93005; 99212 ==

== ENCOUNTER 2024-12-05 14:01 | Outpatient (REF) | payer MEDICARE, OTHER, SELFPAY ==
[2024-12-05 18:09] LABS: Anion Gap 8 (12-20); Blood Urea Nitrogen 14 mg/dL (9-16); Calcium 9.2 mg/dL (8.4-10.2); Carbon Dioxide 31 mmol/L (22-29); Chloride 104 mmol/L (96-108); Estimated Glomerular Filt Rate > 60; Glucose Random 87 mg/dL (60-115); Potassium 4.1 mmol/L (3.3-5.1); Sodium 139 mmol/L (135-145)
[2024-12-05 18:23] LABS: B Type Natriuretic Peptide 218 pg/mL (<100)
== END 2024-12-05 14:02 | disposition home or self-care (01) ==
LOC: HO.WFDLDS 14:01
PROVIDERS: Visit Provider Internal Medicine Cardiovascular Disease
DX: R60.0 Localized edema (principal)
CPT/HCPCS: 36415; 80048; 83880; 93005; 99212

== ENCOUNTER → 2025-01-02 14:40 | Outpatient (REF) | payer MEDICARE, OTHER, SELFPAY ==
--- NOTE | 2025-01-02 14:43 | CA_ITS ---
Transthoracic Echocardiogram Patient (Last, First, Middle): Wilmar Pope L Gender: Male Date of : 1950 Age: 74 Procedure Date: 01/02/2025 Procedure Type: Transthoracic Echocardiogram Location: OP Height: 185.42 cm Weight: 75.75 kg BSA: 1.99 m2 Heart Rate: 95 bpm BP: 117 / 70 mmHg Automotive Painter Helper: RAY/ROBINA Referring MD: Basim Sumner MD Cancer Researcher: Basim Sumnre MD Symptoms: R60.0 - Localized edema Study Quality: Adequate ECG Rhythm: Sinus Conclusions: - 1. Low normal LV ejection fraction 50-55% with moderately increased wall thickness with elevated filling pressures 2. Mildly dilated left atrium 3. Paradoxical low-flow severe aortic stenosis 4. Small pericardial effusion 5. Mildly dilated ascending aorta Findings Left Ventricle Normal left ventricular cavity size. There is moderately increased left ventricular wall thickness. The left ventricular systolic function is low normal. The visually estimated ejection fraction is between 50-55%. Spectral Doppler is indicative of an impaired relaxation filling pattern. Elevated filling pressures. E/E prime ratio is >15, consistent with elevated filling pressures. Right Ventricle Normal right ventricular cavity size. There is normal right ventricular systolic function. Atria The left atrium is mildly dilated. There is no evidence of interatrial shunt. The right atrium is likely dilated. Aortic Valve There is moderate calcification of the aortic valve. There is severe aortic valve stenosis. There is mild aortic valve regurgitation. dimensionless index is 0.23 consistent with severe aortic stenosis. Overall findings consistent with paradoxical low-flow severe aortic stenosis Mitral Valve There is mild anterior and posterior mitral leaflet thickening. There is trace mitral valve regurgitation. There is no mitral valve stenosis. Pulmonic Valve The pulmonic valve is likely normal. Tricuspid Valve Likely normal tricuspid valve structure and function. Tricuspid regurgitation envelope is inadequate for calculation of right ventricular systolic pressure. Great Vessels The pulmonary artery was not well visualized. There is mild dilatation of the ascending aorta measuring 3.70 cm. Venous The inferior vena cava was not well visualized. Pericardium/Pleural There is a small circumferential pericardial effusion. Prior Study Comparison No significant change compared to prior study dated: 11/13/2023. Measurements 2D Linear Measurements IVSd: 1.56 0.6-0.9/0.6-1.0 cm LVIDd: 4.67 3.9-5.3/4.2-5.9 cm LVIDd Index: 2.35 2.4-3.2/2.2-3.1 cm/m2 LVIDs: 3.89 2.0-3.6 cm LVPWd: 1.47 0.7-1.1 cm Ao Root: 3.30 2.1-3.5 cm LA Diam: 3.40 2.7-3.8/3.0-4.0 cm LAIDs Index: 1.71 1.5-2.3 cm/m2 LV Mass: 368.87 67-162/88-224 g LV Mass Index: 185.36 43-95/49-115 g/m2 LVOT Diam: 1.90 3.0+(-)1.3 cm 2D Systolic Function EF 4C: 57.50 >55% EF 2C: 54.10 >55% EF BiP: 54.20 >55% Mitral Valve MV Pk E: 1.06 MV PK A: 0.36 MV Decel Time: 202.00 E/A: 2.90 E'Lateral: 6.42 E'Medial: 6.20 E/E' Med: 17.10 E/E' Lat: 16.50 PHT: 59.00 MVA PHT: 3.73 Decel Maury: 5.26 Aortic Valve AoV Pk León: 3.14 AoV Mn León: 2.38 AoV VTI: 0.75 AoV Pk Grad: 39.00 Aov Mn Grad: 26.00 SARAH Cont.VTI: 0.62 AI Pk León: 4.09 AI Maury: 2.19 LVOT LVOT Pk León: 0.78 LVOT Mn León: 0.57 LVOT VTI: 0.17 LVOT Pk Grad: 2.00 LVOT Mn Grad: 1.00 LVOT Diam: 1.90 LVOT Area: 2.84 Diastolic Function MV Pk E: 1.06 MV Pk A: 0.36 E/A: 2.90 E'Medial: 6.20 E/E' Med: 17.10 E' Laterial: 6.42 E/E' Lat: 16.50 Right Ventricle TAPSE (mm): 24.20 TVS' León: 7.94 Great Vessels Aorta Ao Root-2D: 3.30 2.0-3.7 cm Ao Asc: 3.70 2.1-3.4 cm Ao Arch: 2.80 Pulmonary Valve PV Pk León: 0.86 Peak PV Grad: 3.00 Updated in Other Vendor System with Status of Final Basim Sumner MD electronically signed on 01/02/2025 4:39:43 PM with status of Final
== END ==
LOC: HO.CARD 14:40
PROVIDERS: PCP Family Medicine; Visit Provider Internal Medicine Cardiovascular Disease
DX: R60.0 Localized edema (principal); I35.0 Nonrheumatic aortic (valve) stenosis
CPT/HCPCS: 93306

== ENCOUNTER → 2025-01-02 14:43 | Outpatient (BNV) | payer MEDICARE, OTHER, SELFPAY | PROVIDERS: PCP Family Medicine; Visit Provider Internal Medicine Cardiovascular Disease | DX: I35.2 Nonrheumatic aortic (valve) stenosis with insufficiency (principal); I35.8 Other nonrheumatic aortic valve disorders; I31.39 Other pericardial effusion (noninflammatory) | CPT/HCPCS: 93306 ==

== ENCOUNTER 2025-01-31 11:35 | Outpatient (AMB) | payer MEDICARE, OTHER, SELFPAY ==
--- NOTE | 2025-01-31 12:04 | A.OFFPC_ITS ---
Vital Signs 01/31/25 12:06 Height 6 ft 0.05 in Weight 164 lb 6 oz BMI 22.3 BP 130/70 Blood Pressure Location Rt brachial Position Sitting Respiration 14 Pulse 67 Pulse Source Pulse Oximeter Temp 98.0 F Temp Source Oral Pulse Oximetry (%) 98 Oxygen Delivery Method Room Air Intake Visit Reasons: f/u chronic conditions Intake Note: patient is scheduled for chronic condition follow up Vmware Engineer Required: No Allergies No Known Allergies Allergy (Verified 01/31/25 12:04) Medication List - Last Reconciled 01/31/25 by Dioni Quevedo MD colesevelam 300 mg PO BID finasteride 5 mg PO DAILY fludrocortisone 0.05 mg (1/2 x 0.1 mg) PO QAM 90 days gabapentin 300 mg PO BID multivitamin (Daily Multi-Vitamin tablet) 1 tab PO DAILY vutrisiran (Amvuttra) 0.5 mL subcut [id number] Tobacco use date assessed: 01/11/24 Dental Screening Dental Screen Date: 01/11/24 HPI f/u chronic conditions HPI Details 74 y/o male presents to f/u amyloidosis, chronic conditions. Pt is on Vutisiran. Follows up with local supervisor parachute manufacturing Dr. Burger and with his supervisor parachute manufacturing in [place]. Followed up with Dr. Sumner 12/05/24. Pt had some increased leg swelling as well as some exertional SOB with elevated pro BNP done in [place], suggestive of incipient CHF. Was advised to stop Florinef therapy, hold off on diuretic regimen. They plan to repeat echocardiogram for aortic stenosis. Echocardiogram 01/02/25: Conclusions: - 1. Low normal LV ejection fraction 50- 55% with moderately increased wall thickness with elevated filling pressures 2. Mildly dilated left atrium 3. Paradoxical low-flow severe aortic st enosis 4. Small pericardial effusion 5. Mildly dilated ascending aorta LE edema improving. Continues to elevate when he can. [facility] Medical History Cellulitis Orthostatic hypotension Aortic stenosis Amyloidosis inherited systemic Surgical History History of carpal tunnel surgery History of biopsy History of surgery History of colonoscopy Family History Father Substance use disorder Mother Leukemia Brother No problems noted. Sister Seronegative rheumatoid arthritis Sister No problems noted. Daughter No problems noted. Social History Housing: House Alcohol intake: current Alcohol intake frequency: a few times a month Patient Tobacco Use Status: Current everyday Tobacco user e-Cigarette/Vaping Use: Never Used service: No Current occupational status: retired Current occupational exposures/hazards: No Cognitive needs: No Hearing needs: No Vision needs: No Questionnaire Thrive Questionnaire Date Thrive assessed: 09/10/24 I am a: Patient What is your living situation today?: I have a steady place to live Within the past 12 months, did the food you bought not last and you didn't have the money to get more?: Never true Within the past 12 months, did you worry whether your food would run out before you got money to buy more?: Never true Do you have trouble paying for medicines?: No Do you have trouble getting transportation to medical appointments?: No Do you have trouble paying your heating and electricity bill?: No Do you have trouble taking care of your child, family member or friend?: No Do you have trouble with day-to-day activities such as bathing, preparing meals, shopping, managing finances, etc.?: No Are you currently unemployed and looking for a job?: No Are you interested in more education?: No Please select the resources that you would like help with: None Currently or been in a relationship where the following occur: No concerns reported THRIVE Score: 0 ABRIL-7 AMB Questionnaire ABRIL-7 Date ABRIL - 7 assessed: 01/11/24 Source: Developed by Drs. Salvador Stout, Dory Queen, Johnathon Zapata and colleagues, with an educational tamara from [employer]. Review of Systems Const Denies chills, Denies fatigue, Denies fever(s), Denies headache(s) and Denies weakness ENT Denies dizziness and Denies headache(s) Card Denies chest pain, Denies lightheadedness, Denies dyspnea and Denies other (Palpitations) Resp Denies cough, Denies dyspnea, Denies wheezing and Denies other ( shortness of breath) Musc Denies numbness and Denies tingling Neuro Denies dizziness, Denies headache(s), Denies numbness, Denies tingling, Denies paresthesias and Denies weakness Psych Denies anxiety and Denies depression Endo Denies fatigue Aller/Immun Denies wheezing Physical exam (Primary Care) Vital Signs: Last Vital Signs Temp 98.0 F 01/31/25 12:06 Pulse 67 01/31/25 12:06 Resp 14 01/31/25 12:06 BP 130/70 01/31/25 12:06 Pulse Ox 98 01/31/25 12:06 Oxygen Delivery Method Room Air 01/31/25 12:06 BMI result Body Mass Index 22.3 Tobacco/Smoking Status: Tobacco use Status Tobacco use date assessed 01/11/24 01/31/25 12:09 Patient Tobacco Use Status Current everyday Tobacco 01/31/25 12:09 e-Cigarette/Vaping Use Never Used 01/31/25 12:09 Thrive Assessment: Date of Thrive Assessment Date Thrive assessed 09/10/24 01/31/25 12:09 Currently or been in a relationship where the following occur: No concerns reported Const General: no acute distress and well developed Nutritional Appearance: well nourished Orientation/consciousness: patient oriented x3 [facility] Head: Yes normocephalic and Yes atraumatic Eyes General: appearance normal, both eyes and all related structures Pupils: Equal, round and reactive pupils present EOM: EOMs intact bilaterally Resp Effort & Inspection: normal respiratory effort Auscultation: clear to auscultation bilaterally Cardio Rate: regular rate Rhythm: regular rhythm Heart sounds: S1 normal heart sound present, S2 normal heart sound present, no gallops, no murmurs and no rubs Neuro General: patient oriented x3 and gait normal Cranial nerves: Yes Equal, round and reactive pupils present Psych Affect: normal affect Coding Level of Care Code Est Pt Level 4 (03386) Diagnoses Amyloidosis inherited systemic E85.2 Leg edema R60.0 Orthostatic hypotension I95.1 Aortic stenosis I35.0 Assessment & Plan Assessment & Plan (1) Amyloidosis inherited systemic: Code(s): 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 Followed?by?Amyloidosis center?of?[place] Followed?by??Burak?at?[facility]?cardiology Had?recently?tried?discontinuing?fludrocortisone?due?to?lower?extremity?edema?bu t?blood?pressures?were?getting?too?low?and?midodrine?was?not?tolerated. He?is?taking?fludrocortisone?prn?and?this?seems?to?be?controlling?his?symptoms?b est. (2) Leg edema: Code(s): R60.0 - Localized edema Category: Medical Plan: As?above,?he?will?take?fludrocortisone only ?prn He?is?elevating?his?legs Continue?to?monitor (3) Orthostatic hypotension: Code(s): I95.1 - Orthostatic hypotension Category: Medical Plan: As?above,?fludrocortisone?prn?when?blood?pressures?are?getting?too?low (4) Aortic stenosis: Code(s): I35.0 - Nonrheumatic aortic (valve) stenosis Category: Medical Plan: Severe?aortic?stenosis?but?no?change?on?most?recent?echocardiogram Will?continue?to?monitor?along?with?Cardiology
[2025-01-31 12:06] VITALS: BP 130/70; PULSE 67; RESP 14; TEMP 36.7; O2SAT 98; BMI 22.3
== END 2025-01-31 13:02 | disposition home or self-care (01) ==
LOC: HO.HMCFM 11:36
PROVIDERS: PCP Family Medicine; Visit Provider Family Medicine
DX: E85.2 Heredofamilial amyloidosis, unspecified (principal); R60.0 Localized edema; I95.1 Orthostatic hypotension; I35.0 Nonrheumatic aortic (valve) stenosis

== ENCOUNTER → 2025-01-31 11:35 | Outpatient (BNVA) | payer MEDICARE, OTHER, SELFPAY | PROVIDERS: PCP Family Medicine; Visit Provider Family Medicine | DX: E85.2 Heredofamilial amyloidosis, unspecified (principal); R60.0 Localized edema; I95.1 Orthostatic hypotension; I35.0 Nonrheumatic aortic (valve) stenosis | CPT/HCPCS: 99212 ==

== ENCOUNTER 2025-02-18 10:59 | Outpatient (AMB) | payer MEDICARE, OTHER, SELFPAY ==
--- OUTSIDE RECORDS SUMMARY | 2025-02-13 23:59 | XMS_ITS | Continuity of Care Document ---
Author Organization [facility] Address [address], [address] d Floor, [address] [place] [id number]- Care Team Providers Care Screening Nurse Name Role Phone Sae LAGUNA, Dioni Veliz Primary Care Physician En[place] [facility] [place](s): 01/14/25 - 02/13/25 [facility] [address], [address] [place] [id number]- Encounter Type: Triage Allergies, Adverse Reactions, Alerts [...] 180 capsule, Refills 2, Tot. Refills 2, Maintenance,01/14/25 1:48:00 PM EDT, Route to Pharmacy Electronically, [facility]/pharmacy #[id number], Partial fill upon patient request if the prescription is for a schedule II opioid drug., 183, cm, 11/01/24 11:00:00 EDT, Height, 75.7, kg, 12/03/24 11:47:00 EDT, Dry Weight Start Date: 01/14/25 Stop Date: 10/11/25 Status: Ordered Quantity: 180.0 Unit: capsule Repeat [...] Care team information Care Team Personnel Name: Johnna Gordon RN Position: [facility] Nurse Member Role: Primary Care Nurse Name: Siena Rai RN Position: [facility] RN Member Role: Primary Care Nurse Name: Dioni Quevedo MD Position: [facility] Outreach Member Role: PCP Address: [address] [place] [id number] Telecom: Name: Ade Garcia RN Position: [facility] Nurse Member Role: Primary Care Nurse Name: Rani Guaman RN Position: [facility] RN Member Role: Primary Care Nurse Care Team Related Persons Name: FARZADCARMEN WHITMAN Insurance Providers Guarantor name: CHARLA PANDA Health Plan Information #: 1 Payer: MEDICARE B Payer Identifier: NA Member Number: [id number] Group Number: Subscriber Identifier: [id number] Relationship to Subscriber: self Coverage Type: NA Coverage Verification Date: NA Telecom: NA Address: Health Plan Information #: 2 Payer: I10 MEDICARE SUPPL [facility] Payer Identifier: NA Member Number: [id number] Group Number: Subscriber Identifier: [id number] Relationship to Subscriber: self Coverage Type: NA Coverage Verification Date: NA Telecom: NA Address:
--- NOTE | 2025-02-18 11:00 | A.OFFVIS_ITS ---
Vital Signs 02/18/25 11:01 Height 6 ft 0.5 in Weight 163 lb 2.273 oz BMI 21.8 BP 126/72 Blood Pressure Location Lt brachial Position Sitting Pulse 68 Intake Visit Reasons: 2m follow up/ echo/labs Intake Note: 2 month follow-up after echo and labs hearts ok Argon Tester Required: No Poultry Field Service Technician: Poultry Field Service Technician Present Accompanied by: Spouse Allergies No Known Allergies Allergy (Verified 01/31/25 12:04) Medication List - Last Reconciled 02/18/25 by Basim Sumner MD colesevelam 300 mg PO BID colesevelam 1,250 mg (2 x 625 mg) PO BID finasteride 5 mg PO DAILY fludrocortisone 0.05 mg (1/2 x 0.1 mg) PO QAM 90 days gabapentin 300 mg PO BID multivitamin (Daily Multi-Vitamin tablet) 1 tab PO DAILY vutrisiran (Amvuttra) 0.5 mL subcut [id number] HPI Comments Details: Wilmar comes for follow-up, accompanied by his . After stopping fludrocortisone he started noticing significantly goal blood pressure occasionally into the 60s. He was very symptomatic with it. At other times and other days his blood pressure is within normal range. He has started taking fludrocortisone on every day. He would notice that when he would stopped taking fludrocortisone his leg edema would resolve within 2-3 days. Subsequently when he would start taking fludrocortisone every day basis he has started gaining leg edema up to the thigh level. He has noticed increasing exertional fatigue. He has not noticed any clear orthopnea, PND. He is currently taking fludrocortisone as need be we in his blood pressure is low. He could not tolerate midodrine therapy with significantly elevated blood pressures. He is currently continues to take medications for his amyloidosis. His echocardiogram shows paradoxical low-flow severe aortic stenosis with mean gradient of 26 mm Hg and dimensionless index of 0.23 with valve area less than 0.8 cm2. His LV ejection fraction is within normal limits. [facility] Medical History Cellulitis Orthostatic hypotension Aortic stenosis Amyloidosis inherited systemic Surgical History History of carpal tunnel surgery History of biopsy History of surgery History of colonoscopy Family History Father Substance use disorder Mother Leukemia Brother No problems noted. Sister Seronegative rheumatoid arthritis Sister No problems noted. Daughter No problems noted. Social History Housing: House Alcohol intake: current Alcohol intake frequency: a few times a month Patient Tobacco Use Status: Current everyday Tobacco user e-Cigarette/Vaping Use: Never Used service: No Current occupational status: retired Current occupational exposures/hazards: No Cognitive needs: No Hearing needs: No Vision needs: No Review of Systems Const Denies chills, Denies fatigue, Denies fever(s), Denies frequent falls, Denies weakness, Denies weight gain and Denies weight loss ENT Denies dizziness Card Denies chest pain, Denies leg edema, Denies lightheadedness, Denies palpitations, Denies dyspnea, Denies dyspnea on exertion, Denies orthopnea and Denies other (loss of consciousness) Resp Denies cough, Denies dyspnea and Denies dyspnea on exertion GI Denies hematochezia and Denies change in stool character Musc Denies abnormal gait, Denies muscle weakness, Denies numbness, Denies radiating pain into limb and Denies tingling Neuro Denies abnormal gait, Denies dizziness, Denies frequent falls, Denies numbness, Denies tingling and Denies weakness Endo Denies fatigue and Denies palpitations Physical Exam Vital Signs: Last Vital Signs Pulse 68 02/18/25 11:01 BP 126/72 02/18/25 11:01 BMI result Body Mass Index 21.8 Const General: cooperative, comfortable, no acute distress, alert, awake and well groomed Nutritional Appearance: thin Orientation/consciousness: patient oriented x3 Limitations: ambulation with walker Neck Neck: Yes trachea midline, Yes supple and Yes JVD Carotids: delayed carotid upstroke Resp Effort & Inspection: normal respiratory effort Auscultation: clear to auscultation bilaterally Cardio Jugular venous distension: JVD Palpation: normal PMI Rate: regular rate Rhythm: regular rhythm Heart sounds: S1 normal heart sound present, Murmur heart sound present systolic late, decrescendo and crescendo and Other heart sounds present (Soft test to) GI Auscultation: normal bowel sounds Skin General skin exam: no rashes or lesions noted Neuro General: patient oriented x3 and no focal motor deficits Extrem General: No clubbing, No cyanosis and Yes edema (One to 2+ on right greater than left) Psych Appearance: grossly normal Assessment & Plan Assessment & Plan (1) Aortic stenosis: Code(s): I35.0 - Nonrheumatic aortic (valve) stenosis Category: Medical Plan: Aortic stenosis by his clinical scenario as well as by echocardiogram appears to be severe with a mean gradient of only 26 mm Hg in the setting of normal LV ejection fraction. This is consistent with paradoxical low-flow severe aortic stenosis and has remained stable. In his recent time he has started developing bilateral leg edema with fludrocortisone therapy which she is required to use for orthostatic hypotension. He has not had any overt other heart failure symptoms except for exertional fatigue and tiredness. He notices significantly low blood pressure occasionally which could also be possibly related to severe aortic stenosis with reduced stroke volume in the setting of autonomic dysfunction. I think he requires further investigation for his aortic stenosis with invasive cardiac catheterization to confirm the diagnose of aortic stenosis and evaluate filling pressures and underlying coronary anatomy. If this confirms I think he will benefit from aortic valve replacement although given his amyloidosis his overall long-term benefit Mibi lesser then patient with aortic stenosis without amyloidosis. However I think replacing his valve will help his hemodynamics no overall symptoms. We discussed the process of transcatheter aortic valve replacement evaluation. Will be seen by machine heddle cleaner as well as to cardiac surgeon who have to concur that he would benefit from transcatheter aortic valve replacement and then will require further CAT scan to size aortic valve as well as size the femoral vessels. He understands agrees and wants to proceed with it. We discussed the need for cardiac catheterization including risk, benefits, alternatives and will be scheduled in near future. He understands and agrees. 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 His GI symptoms from autonomic dysfunction also have improved. Overall his motor function has improved and clinically he is doing better on this therapy. He has been followed by amyloidosis Clinic in [place]. (3) Orthostatic hypotension: Code(s): I95.1 - Orthostatic hypotension Category: Medical Plan: Orthostatic hypotension related to autonomic dysfunction related to amyloidosis and neurologic issues. He still has intermittent significantly low blood pressure and notices occasional related to bowel movement. He is trying to manage his oral water intake although when the blood pressure is low with response to fludrocortisone therapy. He understands management when the blood pressure is low and understands orthostatic precautions. He could not tolerate midodrine therapy due to significantly elevated blood pressure and side effects. We discussed about alternative therapy with Greg, however he wants to continue pursue PRN fludrocortisone therapy. I think his orthostatic hypotension is exacerbated by his severe aortic stenosis and restrictive cardiomyopathy both leading to reduce stroke volume. Management of aortic stenosis as above. Will follow up in the clinic in 3 months time. Greater than 30 minutes was spent in managing his complex care Orders: Orders Basic Metabolic Panel Today I35.0 - Nonrheumatic aortic (valve) stenosis Prothrombin Time INR Today I35.0 - Nonrheumatic aortic (valve) stenosis Cardiac Cath MENG Diagnostic 1 Week I35.0 - Nonrheumatic aortic (valve) stenosis Complete Blood Count no Diff Today I35.0 - Nonrheumatic aortic (valve) stenosis Coding Level of Care Code Est Pt Level 5 (66450) Complex EM visit Add On G2211 Diagnoses Aortic stenosis I35.0 Amyloidogenic transthyretin amyloidosis E85.89 Orthostatic hypotension I95.1
[2025-02-18 11:01] VITALS: BP 126/72; PULSE 68; BMI 21.8
== END 2025-02-18 12:51 | disposition home or self-care (01) ==
LOC: HO.HCS 11:00
PROVIDERS: PCP Family Medicine; Visit Provider Internal Medicine Cardiovascular Disease
DX: I35.0 Nonrheumatic aortic (valve) stenosis (principal); E85.89 Other amyloidosis; I95.1 Orthostatic hypotension
CPT/HCPCS: 99214; G2211

== ENCOUNTER → 2025-02-18 10:59 | Outpatient (BNVA) | payer MEDICARE, OTHER, SELFPAY | PROVIDERS: PCP Family Medicine; Visit Provider Internal Medicine Cardiovascular Disease | DX: I35.0 Nonrheumatic aortic (valve) stenosis (principal); E85.89 Other amyloidosis; I95.1 Orthostatic hypotension; Z79.51 Long term (current) use of inhaled steroids | CPT/HCPCS: 99212 ==

== ENCOUNTER 2025-02-19 12:56 | Outpatient (REF) | payer MEDICARE, OTHER, SELFPAY ==
[2025-02-19 16:16] LABS: Hematocrit 40.5 % (42.0-52.0); Hemoglobin 13.7 g/dl (14.0-18.0); Mean Corpuscular HGB Conc 33.8 g/dl (31.0-36.0); Mean Corpuscular Hemoglobin 30.3 pg (27.0-33.0); Mean Corpuscular Volume 89.6 fL (80.0-98.0); NRBC Abs Auto 0.000 X10*3/uL (0.0-0.012); NRBC Pct Auto 0.0 /100WBC (0.0-0.2); Platelet Count 195 X10*3/uL (160-400); Red Blood Count 4.52 X10*6/uL (4.60-5.80); White Blood Count 5.1 X10*3/uL (4.8-10.8)
[2025-02-19 16:20] LABS: INTERNATIONAL NORM RATIO 1.3 (0.9-1.1); Prothrombin Time 14.6 SEC (10.9-12.4)
[2025-02-19 16:35] LABS: Anion Gap 10 (12-20); Blood Urea Nitrogen 13 mg/dL (9-16); Calcium 9.0 mg/dL (8.4-10.2); Carbon Dioxide 31 mmol/L (22-29); Chloride 103 mmol/L (96-108); Estimated Glomerular Filt Rate > 60; Potassium 4.4 mmol/L (3.3-5.1); Sodium 140 mmol/L (135-145)
== END 2025-02-19 12:57 | disposition home or self-care (01) ==
LOC: HO.WFDLDS 12:56
PROVIDERS: Visit Provider Internal Medicine Cardiovascular Disease
DX: I35.0 Nonrheumatic aortic (valve) stenosis (principal)
CPT/HCPCS: 36415; 80048; 85027; 85610

== ENCOUNTER → 2025-03-05 23:59 | Outpatient (BNV) | payer MEDICARE, OTHER, SELFPAY | PROVIDERS: PCP Family Medicine; Visit Provider Internal Medicine Cardiovascular Disease | DX: I35.0 Nonrheumatic aortic (valve) stenosis (principal) | CPT/HCPCS: 93460; 99152 ==

== ENCOUNTER 2025-05-05 12:42 | Outpatient (AMB) | payer MEDICARE, OTHER, SELFPAY ==
--- NOTE | 2025-05-05 12:53 | MHC.OFFVIS ---
Vital Signs 05/05/25 12:55 Height 6 ft 0.05 in Weight 154 lb 5.177 oz BMI 20.9 BP 149/70 H Blood Pressure Location Lt brachial Position Sitting Pulse 74 Intake Visit Reasons: annual check up Intake Note: Wilmar presents in the office as a annual follow up. CC: States that he just wants to follow up and see if there is anything else he should be doing. Extractions Technologist Required: No Allergies No Known Allergies Allergy (Verified 01/31/25 12:04) HPI HPI annual check up: Details: 74 yr old m here for f/u RECAP: He was diagnosed with hereditary amyloidosis, after he had weakness in the legs he is on patisiran he has been having bowel habit issues he has diarrhea he had SIBO test with [facility] and was apparently pos and was given rifaxmin with great results he had formed stools for several weeks sx recurred few weeks ago he has diarrhea tyson with any type of food he has had c diff 2018 he had c diff checked Aug 2021 and was neg last colonoscopy 2018--nml INTERIM: He has been taking colveselam BID and align can have attacks of low BP and loose stools once a day for 3-4 d in a row, can happen twice a month at least thinks it might be less has also had some stress which makes it worse trying small meals EXAM: GENERAL: The patient is relaxed VITAL SIGNS:see workflow HEENT: Nonicteric sclerae, PERRLA, EOMI. Oropharynx clear. Moist mucous membranes. Conjunctivae appear well perfused. No thyroid mass. CHEST: Chest wall is nontender. HEART: Regular rate and rhythm without murmurs. LUNGS: Clear to auscultation bilaterally. ABDOMEN: Soft, positive bowel sounds, nontender, no organomegaly.no flank tenderness SKIN: No rash, no excessive bruising, petechiae, or purpura. NEUROLOGIC: Cranial nerves II-XII intact without motor/sensory deficit. psych: nml affect A/P 1/ Hx of amyloidosis, does predispose to SIBO, plus itself can invade lining of GI tract and can cause diarrhea, may also have dumping syndrome or fungal small bowel overgrowth PLAN: 1/ increase colveselam to one in the AM, and two in PM 2/ also discussed GES and trial of fluconazole for 3 weeks, will consider [facility] Medical History Cellulitis Orthostatic hypotension Aortic stenosis Amyloidosis inherited systemic Surgical History History of carpal tunnel surgery History of biopsy History of surgery History of colonoscopy Family History Father Substance use disorder Mother Leukemia Brother No problems noted. Sister Seronegative rheumatoid arthritis Sister No problems noted. Daughter No problems noted. Social History Housing: House Alcohol intake: current Alcohol intake frequency: a few times a month Patient Tobacco Use Status: Current everyday Tobacco user e-Cigarette/Vaping Use: Never Used service: No Current occupational status: retired Current occupational exposures/hazards: No Cognitive needs: No Hearing needs: No Vision needs: No Physical Exam Vital Signs: Last Vital Signs Pulse 74 05/05/25 12:55 BP 149/70 H 05/05/25 12:55 BMI result Body Mass Index 20.9 Assessment & Plan Assessment & Plan (1) Amyloidosis inherited systemic: Code(s): E85.2 - Heredofamilial amyloidosis, unspecified Category: Medical Plan: as above Coding Level of Care Code Est Pt Level 3 (28605) Diagnoses Amyloidosis inherited systemic E85.2
[2025-05-05 12:55] VITALS: BP 149/70; PULSE 74; BMI 20.9
== END 2025-05-05 13:28 | disposition home or self-care (01) ==
LOC: HO.HGI 12:43
PROVIDERS: PCP Family Medicine; Visit Provider Internal Medicine Gastroenterology
DX: E85.2 Heredofamilial amyloidosis, unspecified (principal)
CPT/HCPCS: 99213

== ENCOUNTER → 2025-05-05 12:42 | Outpatient (BNVA) | payer MEDICARE, OTHER, SELFPAY | PROVIDERS: PCP Family Medicine; Visit Provider Internal Medicine Gastroenterology | DX: E85.2 Heredofamilial amyloidosis, unspecified (principal) | CPT/HCPCS: 99212 ==

== ENCOUNTER 2025-05-06 11:19 | Outpatient (AMB) | payer MEDICARE, OTHER, SELFPAY ==
--- NOTE | 2025-05-06 11:59 | A.OFFPC_ITS ---
Vital Signs 05/06/25 12:04 Height 6 ft Weight 153 lb 6 oz BMI 20.8 BP 128/70 Blood Pressure Location Rt brachial Position Sitting Respiration 15 Pulse 67 Pulse Source Pulse Oximeter Temp 97.6 F Temp Source Temporal Artery Scan Pulse Oximetry (%) 98 Oxygen Delivery Method Room Air Intake Visit Reasons: f/u chronic conditions Intake Note: Wilmar presents in the office today for a follow up to chronic conditions. Allergies No Known Allergies Allergy (Verified 05/06/25 12:02) Tobacco use date assessed: 05/06/25 Fall risk assessment: No Falls in past year Last assessed Fall Risk: 05/06/25 Dental Screening Dental Screen Date: 05/06/25 Did you have a dental visit in the last 12 months?: Yes Did you have a dental problem in the last 6 months where you did not have access to dental care?: No Was dental information given to patient?: Patient has dentist HPI f/u chronic conditions HPI Details 74 y/o male presents to f/u chronic cond itions. Amyloidosis. Prescribed vutrisiran. Had followed up with Cardiology in February. They had discussed need for cardiac cath. They note they had confirmed moderate aortic stenosis. Reports some ongoing LE swelling, LE weakness. Continues to work on exercise. [facility] Medical History Cellulitis Orthostatic hypotension Aortic stenosis Amyloidosis inherited systemic Surgical History History of carpal tunnel surgery History of biopsy History of surgery History of colonoscopy Family History Father Substance use disorder Mother Leukemia Brother No problems noted. Sister Seronegative rheumatoid arthritis Sister No problems noted. Daughter No problems noted. Social History (Updated 05/06/25 @ 12:04 by Kami Murray CMA) Housing: House Alcohol intake: current Alcohol intake frequency: a few times a month Patient Tobacco Use Status: Never used Tobacco e-Cigarette/Vaping Use: Never Used Second Hand Smoke Exposure: No Use of substances other than those prescribed or required for medical reasons: No service: No Current occupational status: retired Current occupational exposures/hazards: No Cognitive needs: No Hearing needs: No Vision needs: No Questionnaire Thrive Questionnaire Date Thrive assessed: 09/10/24 I am a: Patient What is your living situation today?: I have a steady place to live Within the past 12 months, did the food you bought not last and you didn't have the money to get more?: Never true Within the past 12 months, did you worry whether your food would run out before you got money to buy more?: Never true Do you have trouble paying for medicines?: No Do you have trouble getting transportation to medical appointments?: No Do you have trouble paying your heating and electricity bill?: No Do you have trouble taking care of your child, family member or friend?: No Do you have trouble with day-to-day activities such as bathing, preparing meals, shopping, managing finances, etc.?: No Are you currently unemployed and looking for a job?: No Are you interested in more education?: No Please select the resources that you would like help with: None Currently or been in a relationship where the following occur: No concerns reported THRIVE Score: 0 ABRIL-7 AMB Questionnaire ABRIL-7 Date ABRIL - 7 assessed: 01/11/24 Source: Developed by Drs. Salvador Stout, Dory Queen, Johnathon Zapata and colleagues, with an educational tamara from [employer]. Review of Systems Const Denies chills, Denies fatigue, Denies fever(s), Denies headache(s) and Denies weakness ENT Denies dizziness and Denies headache(s) Card Denies dyspnea Resp Denies cough, Denies dyspnea, Denies wheezing and Denies other (shortness of breath) Musc Denies numbness and Denies tingling Neuro Denies dizziness, Denies headache(s), Denies numbness, Denies tingling and Denies weakness Psych Denies anxiety and Denies depression Endo Denies fatigue Aller/Immun Denies wheezing Physical exam (Primary Care) Vital Signs: Last Vital Signs Temp 97.6 F 05/06/25 12:04 Pulse 67 05/06/25 12:04 Resp 15 05/06/25 12:04 BP 128/70 05/06/25 12:04 Pulse Ox 98 05/06/25 12:04 Oxygen Delivery Method Room Air 05/06/25 12:04 BMI result Body Mass Index 20.8 Tobacco/Smoking Status: Tobacco use Status Tobacco use date assessed 05/06/25 05/06/25 12:08 Patient Tobacco Use Status Never used Tobacco 05/06/25 12:08 e-Cigarette/Vaping Use Never Used 05/06/25 12:04 Thrive Assessment: Date of Thrive Assessment Date Thrive assessed 09/10/24 05/06/25 12:01 Currently or been in a relationship where the following occur: No concerns reported Const General: well developed; No acute distress Nutritional Appearance: well nourished Orientation/consciousness: patient oriented x3 HENMT Head: Yes normocephalic and Yes atraumatic Eyes General: appearance normal, both eyes and all related structures Pupils: Equal, round and reactive pupils present EOM: EOMs intact bilaterally Resp Effort & Inspection: normal respiratory effort Neuro General: patient oriented x3 and No gait normal Cranial nerves: Yes Equal, round and reactive pupils present Psych Affect: normal affect Coding Level of Care Code Est Pt Level 4 (36765) Diagnoses Amyloidosis inherited systemic E85.2 Aortic stenosis I35.0 Leg edema R60.0 Unsteady gait R26.81 Mild anemia D64.9 Assessment & Plan Assessment & Plan (1) Amyloidosis inherited systemic: Code(s): E85.2 - Heredofamilial amyloidosis, unspecified Category: Medical (2) Aortic stenosis: Code(s): I35.0 - Nonrheumatic aortic (valve) stenosis Category: Medical (3) Leg edema: Code(s): R60.0 - Localized edema Category: Medical Plan: Stable Mild edema right worse than left Elevate legs (4) Unsteady gait: Code(s): R26.81 - Unsteadiness on feet Category: Medical Plan: Using walker Encouraged more exercise (5) Mild anemia: Code(s): D64.9 - Anemia, unspecified Category: Medical Plan: Stable Will continue to monitor Plan Patient with amyloidosis - stable on Vutisiran. Cardiac function has been stable. Blood pressures have stable and he uses fludrocortisone as needed for hypotension. Aortic stenosis and recent cardiac catheterization - his reconciliation manager at [facility] has been considering valve replacement discuss results and his impression at their next visit. Followed by Gastroenterology His bile sequestrant was increased and recent visit this week. I Advised smaller more frequent meals. Hydrate well. Orders: Orders Comprehensive [place]. Panel Fast Today Z00.00 - Encounter for general adult medical examination without abnormal findings Complete Blood Count Auto Diff Today Z00.00 - Encounter for general adult medical examination without abnormal findings TSH reflex Free T4 Today Z00.00 - Encounter for general adult medical examination without abnormal findings UA CC w/rflx Micro + Cult Today Z00.00 - Encounter for general adult medical examination without abnormal findings Vitamin D 25-OH Total Today E55.9 - Vitamin D deficiency, unspecified Lipid Panel Today Z00.00 - Encounter for general adult medical examination without abnormal findings Microalbumin, Random (w Creat) Today I10 - Essential (primary) hypertension Prostate Specific Antigen Scr Today Z12.5 - Encounter for screening for malignant neoplasm of prostate Vitamin B12 and Folate Today E53.8 - Deficiency of other specified B group vitamins
[2025-05-06 12:04] VITALS: BP 128/70; PULSE 67; RESP 15; TEMP 36.4; O2SAT 98; BMI 20.8
== END 2025-05-06 13:03 | disposition home or self-care (01) ==
LOC: HO.HMCFM 11:19
PROVIDERS: PCP Family Medicine; Visit Provider Family Medicine
DX: E85.2 Heredofamilial amyloidosis, unspecified (principal); I35.0 Nonrheumatic aortic (valve) stenosis; R60.0 Localized edema; R26.81 Unsteadiness on feet; D64.9 Anemia, unspecified

== ENCOUNTER → 2025-05-06 11:19 | Outpatient (BNVA) | payer MEDICARE, OTHER, SELFPAY | PROVIDERS: PCP Family Medicine; Visit Provider Family Medicine | DX: E85.2 Heredofamilial amyloidosis, unspecified (principal); R60.0 Localized edema; I35.0 Nonrheumatic aortic (valve) stenosis; R26.81 Unsteadiness on feet; D64.9 Anemia, unspecified | CPT/HCPCS: 99212 ==

== ENCOUNTER 2025-07-31 11:22 | Outpatient (REF) | payer MEDICARE, OTHER, SELFPAY ==
[2025-07-31 11:48] LABS: MANUAL DIFF FLAG NO
[2025-07-31 12:09] LABS: Hematocrit 39.4 % (42.0-52.0); Hemoglobin 13.5 g/dl (14.0-18.0); Imm Gran Abs Auto 0.01 X10*3/uL (0.00-0.03); Imm Gran Pct Auto 0.2 % (0.0-0.4); Lymphocytes Absolute Auto 1.1 X10*3/uL (1.2-4.9); Mean Corpuscular HGB Conc 34.3 g/dl (31.0-36.0); Mean Corpuscular Hemoglobin 30.8 pg (27.0-33.0); Mean Corpuscular Volume 89.7 fL (80.0-98.0); NRBC Abs Auto 0.000 X10*3/uL (0.0-0.012); NRBC Pct Auto 0.0 /100WBC (0.0-0.2); Platelet Count 184 X10*3/uL (160-400); Red Blood Count 4.39 X10*6/uL (4.60-5.80); White Blood Count 5.8 X10*3/uL (4.8-10.8)
[2025-07-31 12:33] LABS: Appearance Urine Cloudy; Glucose Urine UA Negative (Negative); PH 6.5 (5.0-9.0); Specific Gravity - Urine 1.020 (1.005-1.025); UMIC TRIGGER UACC YES
[2025-07-31 12:50] LABS: UACC Culture Trigger YES
[2025-07-31 13:36] LABS: Microalbum/Creatinine Ratio Ur 13.9 ug/mg cr (<30)
[2025-07-31 14:01] LABS: Alanine Aminotransferase 17 U/L (0-40); Albumin Level 3.9 g/dL (3.5-5.0); Alkaline Phosphatase 85 U/L (39-117); Anion Gap 10 (12-20); Aspartate Amino Transferase 30 U/L (5-37); Blood Urea Nitrogen 15 mg/dL (9-16); Calcium 8.8 mg/dL (8.4-10.2); Carbon Dioxide 31 mmol/L (22-29); Chloride 102 mmol/L (96-108); Cholesterol 137 mg/dL (<200); Estimated Glomerular Filt Rate > 60; HDL Cholesterol 44 mg/dL (>40); Potassium 4.4 mmol/L (3.3-5.1); Sodium 139 mmol/L (135-145); Total Protein 6.6 g/dL (6.5-8.0); Triglycerides 49 mg/dL (<150)
[2025-07-31 14:07] LABS: Folate 12.3 ng/mL (> or = 4.0); Vitamin B12 727 pg/mL (200-900)
== END 2025-07-31 11:23 ==
LOC: HO.LAB 11:22
PROVIDERS: PCP Family Medicine; Visit Provider Family Medicine
DX: Z00.00 Encounter for general adult medical examination without abnormal findings (principal); Z12.5 Encounter for screening for malignant neoplasm of prostate; E55.9 Vitamin D deficiency, unspecified; I10 Essential (primary) hypertension; E53.8 Deficiency of other specified B group vitamins
CPT/HCPCS: 36415; 80053; 80061; 81001; 82043; 82306; 82570; 82607; 82746; 84153; 84443; 85025; 87086

== ENCOUNTER 2025-08-11 11:49 | Outpatient (AMB) | payer MEDICARE, OTHER, SELFPAY ==
--- NOTE | 2025-08-11 11:53 | A.OFFVIS_ITS ---
Intake Vital Signs 08/11/25 12:00 Height 6 ft Weight 159 lb BMI 21.6 BP 132/70 Blood Pressure Location Lt brachial Position Sitting Respiration 13 Pulse 78 Pulse Source Pulse Oximeter Temp 97.3 F Temp Source Oral Pulse Oximetry (%) 99 Oxygen Delivery Method Room Air Intake Visit Reasons: Annual Wellness / Dr. Quevedo's pt. 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 The Medicare Annual Wellness Visit (AWV) is a yearly appointment with a health professional to identify health risks and help reduce them and to create or update a personalized prevention plan. During a Medicare AWV, health professionals should also review any current opioid prescriptions, detect any cognitive impairment, and establish or update medical and family history. 75 y/o M with amyloidosis with neuropath y , moderate aortic stenosis, Vit D def, orthostatic hypotension, mild anemia SurgHx: Y FHx: Y SocHx: Y Health Maintenance: See scanned preventative medicine assessment with personalized health plan and screening schedule. Colon: 2019 Vaccines: Tdap 2015, PPSV23 2019, Shingles 2016, Flu declined declined update on Tdap today AAA screen: screened out EKG: managed by [facility] [place] [facility] Cards Labs 07/31/25 reviewed, mild stable anemia, LDL 84, Vit D 26.4, PSA 0.37 [place] of Care: As documented Visual Acuity: wears glasses, last exam 1.5 mo ago Hearing Screening: No issues ACP: HCP Y, 5 wishes and MOLST provided today along w/ edu Dietary/Nutrition/Exercise Edu provided: Y During the course of the visit the patient was educated and counseled about appropriate screening and preventative services. Patient instructions were provided to the patient in written or electronic format. I have reviewed and verified the above information. History of Present Illness The patient is a 75 year old male presenting for an annual Medicare wellness visit. Here w/ Amyloidosis: - The patient has a history of amyloidos is with neuropathy and has been taking Amvudro for approximately three years, which he feels has not only stopped the progression of the disease but has also reduced amyloid buildup. - This treatment has significantly impro isidro his prior severe bowel symptoms, which previously limited his ability to be away from a bathroom. - He manages his bowel symptoms with Imo dium. - He undergoes regular monitoring with a n heavy equipment technician due to his amyloidosis, and his last exam revealed no related issues. Moderate Aortic Stenosis: - The patient has a history of moderate aortic stenosis and reports no shortness of breath or limitations in his ability to exercise. Benign Prostatic Hyperplasia: - The patient has been taking finasterid e for BPH and reports a persistent low urinary stream for the last 5-6 years. - He was previously hesitant to try tams ulosin (Flomax) due to concerns about dizziness, but reports his episodes of syncope have resolved. Orthostatic Hypotension: - He has a history of orthostatic hypote nsion and reports feeling dizzy upon standing, which is a chronic issue but has not occurred in the last six months. - Episodes of syncope have resolved sinc e he started taking Amvudro. Vitamin D Deficiency: - The patient has a history of vitamin D deficiency - He currently takes a multivitamin that contains vitamin D. Mild Anemia: - He has a history of mild anemia, which recent lab work shows has been stable. Asymptomatic Bacteriuria: - Urinalysis has chronically shown the p resence of bacteria, which is a known potential symptom of his amyloidosis. - He is asymptomatic and self-manages by increasing his water intake if he notices his urine getting darker. Past Medical History - Amyloidosis with neuropathy - Moderate aortic stenosis - Vitamin D deficiency - Orthostatic hypotension - Mild anemia - Benign prostatic hyperplasia Family History - His mother at age 42 with multiple symptoms that were suggestive of undiagnosed amyloidosis. - 2 sisters have amyloidosis genetics , brother does not; Dtr does not . Social History - Alcohol: Denies alcohol use. - Exercise: Reports exercising 2-3 times daily. - Functional Status: Independent with VCVces but does not drive or do grocery shopping. - He is independent with activities of d aily living and has support available if needed. - He denies any falls in the last year. Review of Systems - General: Denies excessive fatigue. - Rates general health as very good. - HEENT: Denies trouble chewing or swall owing. - Denies issues with hearing. - Denies vision changes. - Cardiovascular: Denies recent syncope. - Reports chronic, but infrequent, dizzi ness on standing. - Respiratory: Denies shortness of breat h. - GI: Reports significant improvement in bowel symptoms since starting amyloido sis treatment. - : Reports a low urinary stream for t he last 5-6 years. - Denies urinary incontinence. - Denies symptoms of urinary tract infec tion such as fever or chills. - Musculoskeletal: Denies falls in the p ast year. - Neurological: Acknowledges being wary of falling but is not afraid. - Denies trouble using the telephone. Physical Exam General: Well developed, well nourished, in no acute distress. Appears stated age. Examined in chair as not able to get onto exam table Head: Normocephalic, atraumatic. Eyes: Pupils are equal, round and reactive to light and accommodation. Conj unctivae are clear. Scleras nonicteric bilat. Vision grossly normal. Ears: TMs clear AU, EACS WNL. No hearing problems or concerns noted. Nose: Patent, without discharge. Neck: No carotid bruit bilat. Supple, no adenopathy or thyromegaly. Breast: Edu on SBE Lungs: Dim throughout Heart: Regular rate and rhythm. 2/6 murmur Abdomen: Bowel sounds present in all quadrants. The abdomen is soft, nontender, with no masses or organomegaly noted. No hernias are noted. : Deferred. Reviewed SACHA & recommendations Pulses: Peripheral pulses are equal and palpable bilaterally. Extremities: No clubbing, cyanosis nor edema is noted. Hairless, trace edema BLE R>L, neuopathy bilat legs, amb w walker Skin: No rashes, ulcers, or lesions noted. Turgor is good. Skin color is good. Hair and nails are without abnormalities. Psych: Normal eye contact, affect and mood appropriate, and normal interactions. Patient is alert and appropriate to context. Results - Labs (from 07/31): - Hemoglobin A1c: 5% (normal). - CBC: Showed stable mild anemia. - CMP: Kidney function, calcium, liver f unction, and protein were all normal. - Cholesterol: Normal. - PSA: 0.37 ng/mL (normal). - Vitamin D: 26.4 ng/mL (low). - Urinalysis: Positive for external bact eria, a chronic finding for the patient. Medical Decision Making The patient is a 75-year-old male here for his annual Medicare wellness visit. His chronic conditions, including amyloidosis with neuropathy, moderate aortic stenosis, and mild anemia, appear stable based on his report and recent lab work. His primary urologic complaint is a chronic low urinary stream, for which he takes finasteride. Given his historical concern for dizziness related to orthostatic hypotension and that his syncope has resolved, it is reasonable to add tamsulosin for symptomatic relief, as it carries a lower risk of syncope than the finasteride he already tolerates. He will follow up with his PCP, Dr. Quevedo, in September to assess his tolerance of the new medication. Review of recent labs revealed a low vitamin D level of 26.4. Considering his history of vitamin D toxicity with high-dose supplementation, a low-dose qfov-jyv-vpcoede supplement of 400 IU daily was recommended. His urinalysis showed bacteriuria, which is a chronic, asymptomatic finding likely related to his underlying amyloidosis. As he is asymptomatic and proactively manages his hydration, no acute treatment is warranted. Advanced care planning was also a focus of the visit. Although he has a healthcare proxy, he lacks a formal advanced directive. He was provided with a MOLST form and educational materials to facilitate these decisions and was instructed to bring the completed form to his next visit for review. Plan Health Maintenance - The patient declined the influenza vac cine and Tdap booster. - Provided MOLST form and educational ma terials for advanced care planning. - Instructed to bring completed advanced directive forms to the next visit for review and inclusion in the medical record. 1. Benign Prostatic Hyperplasia With Low er Urinary Tract Symptoms - Continue finasteride. - Start tamsulosin (Flomax) for symptoma tic relief of low urinary stream. - A prescription for tamsulosin has been sent to [facility] in [place]. - Follow up with Dr. Quevedo in to assess tolerance and effectiveness of the new medication. 2. Vitamin D Deficiency - Recent lab work showed a vitamin D lev el of 26.4. - Recommend starting an cwok-izf-tkirhcj vitamin D supplement of 400 IU once daily. 3. Amyloidosis - Continue current treatment with Amvudr o. - Continue regular follow-up with ophtha lmology for screening. 4. Asymptomatic Bacteriuria - This is a chronic, asymptomatic findin g. - No antibiotic treatment is indicated a t this time. - Continue monitoring and encourage adeq uate hydration. Patient Instructions - Please start taking the new medication , tamsulosin (Flomax), once a day to help with your urinary stream. - We have sent the prescription for tams ulosin and a refill for finasteride to your pharmacy, [facility] in [place]. - Please buy an mixt-bqm-nhctuej vitamin D supplement and take 400 units once a day, as your recent lab test showed your level was low. - Please make sure to follow up with you r PCP Dr. Quevedo, in September. - Please review the paperwork we gave yo u about advanced care planning (the MOLST form). If you decide to fill it out, please bring it with you to your next appointment. - At this time, you have chosen not to g et a flu shot or a tetanus booster. Consent Patient was informed and verbally consented to the use of an ambient scribe for clinic note documentation during this visit. An additional 30 minutes was spent addressing the problem(s) noted at todays visit. This includes time spent before the visit reviewing the chart, time spent during the visit, and time spent after the visit on documentation reviewing laboratory results, diagnostic imaging, medications, performing a medically necessary evaluation, counseling on diagnoses, care coordination, ordering appropriate tests, ordering appropriate medications, review of tests performed by other providers, reporting test results with the patient, communication with other healthcare providers. [facility] Medical History (Updated 08/11/25 @ 13:05 by Brenda Douglas, ANTOINE-JUAN) Amyloidosis inherited systemic Aortic stenosis Cellulitis Cellulitis of foot Fall Orthostatic hypotension Surgical History (Updated 08/11/25 @ 12:39 by ANTOINE Renee-JUAN) History of biopsy History of carpal tunnel surgery History of colonoscopy (~2019) History of surgery Family History Father Substance use disorder Mother Leukemia Brother No problems noted. Sister Seronegative rheumatoid arthritis Sister No problems noted. Daughter No problems noted. Social History (Updated 05/06/25 @ 12:04 by Kami Murray CMA) Housing: House Alcohol intake: current Alcohol intake frequency: a few times a month Patient Tobacco Use Status: Never used Tobacco e-Cigarette/Vaping Use: Never Used Second Hand Smoke Exposure: No service: No Current occupational status: retired Current occupational exposures/hazards: No Cognitive needs: No Hearing needs: No Vision needs: No Questionnaire Medicare Wellness Checkup What [age]?: [age] What gender do you identify with?: male During the past 4 weeks, how much have you been bothered by emotional problems such as feeling anxious, depressed, irritable, sad or downhearted, and blue?: not at all During the past 4 weeks, has your physical & emotional health limited your social activities with family, friends, neighbors, or groups?: not at all During the past 4 weeks, how much bodily pain have you generally had?: no pain During the past 4 weeks, was someone available to help you if you needed & wanted help?: yes, as much as I wanted During the past 4 weeks, what was the hardest physical activity you could do for at least 2 minutes?: light Can you get to places out of walking distance without help? (For eg., can you travel alone on buses, taxis or drive your car?): No Can you go shopping for groceries or clothes without someone's help?: No Can you prepare your own meals?: No Can you do your housework without help?: No Because of any health problems, do you need the help of another person with your personal care needs such as eating, bathing, dressing or getting around the house?: Yes Can you handle your own money without help?: Yes During the past 4 weeks, how would you rate your health in general?: fair During the past 4 weeks how have things been going for you?: pretty well Are you having difficulties driving your car?: not applicable, I don't use a car Do you always fasten your seat belt when you are in a car?: yes, usually During past 4 weeks, have you been bothered by the following: never: Trouble eating well?, Teeth or denture problems? and Problems using the telephone?, seldom: Tiredness or fatigue? and always: Falling or dizzy when standing up Have you fallen 2 or more times in the past year?: No Are you afraid of falling?: No Are you a smoker?: no During the past 4 weeks, how many drinks of wine, beer, or other alcoholic beverages did you have?: no alcohol at all Do you exercise for about 20 minutes 3 or more times a week?: yes, some of the time Have you been given information to help with the following?: no: Hazards in your house that might hurt you? and no: Keeping track of your medications? How often do you have trouble taking medicines the way you have been told to take them?: I always take medicine as prescribed How confident are you that you can control & manage most of your health problems?: very confident What is your race?: White Activity of Daily Living Bathing - sponge bath, tub bath or shower: receives no assistance (gets in/out by self, if usual bathing means Dressing - getting clothes from closets & drawers, including inner/outer garments & fasteners.: gets clothes & gets completely dressed without help Toileting - going to the 'toilet room' for urine/bowel elimination & cleaning self/arranging clothes: goes to toilet room, cleans self, arranges clothes without help Transfer: moves in & out of bed and chair without help (may use support object) Continence: controls urination/bowel movements completely by self Feeding: feeds self without help Total Score: 0 Information obtained from: patient Using telephone: independent Traveling: needs assistance Shopping: needs assistance Preparing meals: needs assistance Housework: needs assistance Taking medicine: independent Managing money: independent PHQ-9 Over the last 2 weeks, how often have you been bothered by any of the following problems? 1. Little interest or pleasure in doing things: not at all 2. Feeling down, depressed, or hopeless: not at all 3. Trouble falling or staying asleep, or sleeping too much: not at all 4. Feeling tired or having little energy: not at all 5. Poor appetite or overeating: not at all 6. Feeling bad about yourself - or that you are a failure or have let yourself or your family down: not at all 7. Trouble concentrating on things, such as reading the newspaper or watching television: not at all 8. Moving or speaking so slowly that other people could have noticed. Or the opposite - being so fidgety or restless that you have been moving around a lot more than usual: not at all 9. Thoughts that you would be better off or of hurting yourself in some way: not at all Total score: 0 Depression Screening Interpretation: Negative Depression Screening Done: Yes 24408 - PHQ-9 Billing: Yes Source: Developed by Drs. Salvador Stout, Dory Queen, Johnathon Zapata and colleagues, with an educational tamara from [employer]. Physical Exam Vital Signs: Last Vital Signs Temp 97.3 F 08/11/25 12:00 Pulse 78 08/11/25 12:00 Resp 13 08/11/25 12:00 BP 132/70 08/11/25 12:00 Pulse Ox 99 08/11/25 12:00 Oxygen Delivery Method Room Air 08/11/25 12:00 BMI result Body Mass Index 21.6 Results AMB Hemoglobin A1c AMB Hemoglobin A1c 5.0 % Last Edit by Julia Germain CMA on 08/11/25 12:11 Assessment & Plan Assessment & Plan (1) Encounter for subsequent annual wellness visit (AWV) in Medicare patient: Onset Date: ~08/11/25 Code(s): Z00.00 - Encounter for general adult medical examination without abnormal findings (2) 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: Code(s): N40.1 - Benign prostatic hyperplasia with lower urinary tract symptoms (3) Influenza vaccination declined: Onset Date: ~08/11/25 Code(s): Z28.21 - Immunization not carried out because of patient refusal (4) Tetanus, diphtheria, and acellular pertussis (Tdap) vaccination declined: Onset Date: ~08/11/25 Code(s): Z28.21 - Immunization not carried out because of patient refusal (5) ACP (advance care planning): Onset Date: ~08/11/25 Code(s): Z71.89 - Other specified counseling (6) Mild anemia: Code(s): D64.9 - Anemia, unspecified (7) Peripheral neuropathy: Code(s): G62.9 - Polyneuropathy, unspecified Qualifiers: Peripheral neuropathy type: polyneuropathy associated with underlying disease Qualified Code(s): G63 - Polyneuropathy in diseases classified elsewhere (8) Aortic stenosis: Code(s): I35.0 - Nonrheumatic aortic (valve) stenosis Qualifiers: Cardiac valve disease etiology: nonrheumatic Qualified Code(s): I35.0 - Nonrheumatic aortic (valve) stenosis (9) Orthostatic hypotension: Code(s): I95.1 - Orthostatic hypotension Plan . Orders: Orders AMB Hemoglobin A1c Today Z00.00 - Encounter for general adult medical examination without abnormal findings Medications: New tamsulosin 0.4 mg PO BEDTIME 90 caps 0RF cholecalciferol (vitamin D3) 10 mcg PO DAILY 90 caps 0RF Refilled finasteride 5 mg PO DAILY 90 tabs 3RF finasteride 5 mg PO DAILY 90 tabs 3RF Patient Instructions: Health screenings for men You should visit your health care provider regularly, even if you feel healthy. The purpose of these visits is to: Screen for medical issues Assess your risk for future medical problems Encourage a healthy lifestyle Update vaccinations and other preventive care services Help you get to know your provider in case of an illness Information Even if you feel fine, you should still see your provider for regular checkups. These visits can help you avoid problems in the future. For example, the only way to find out if you have high blood pressure is to have it checked regularly. High blood sugar and high cholesterol level also may not have any symptoms in the early stages. Simple blood tests can check for these conditions. There are specific times when you should see your provider or receive specific health screenings. The [place] Preventive Services Task Force publishes a list of recommended screenings. Below are screening guidelines for men ages 40 to 64. BLOOD PRESSURE SCREENING Have your blood pressure checked at least once every year. Watch for blood pressure screenings in your area. Ask your provider if you can stop in to have your blood pressure checked. Ask your provider if you need your blood pressure checked more often if: You have diabetes, heart disease, kidney problems, or are overweight or have certain other health conditions You have a first-degree relative with high blood pressure You are Black Your blood pressure top number is from 120 to 129 mm Hg, or the bottom number is from 70 to 79 mm Hg If the top number is 130 mm Hg or greater or the bottom number is 80 mm Hg or greater, this is considered stage 1 hypertension. Schedule an appointment with your provider to learn how you can lower your blood pressure. Effects of age on blood pressure CHOLESTEROL SCREENING Cholesterol screening should begin at age 35 for men with no known risk factors for coronary heart disease. Repeat cholesterol screening should take place: Every 5 years for men with normal cholesterol levels More often if changes occur in lifestyle (including weight gain and diet) More often if you have diabetes, heart disease, kidney problems, or certain other conditions COLORECTAL CANCER SCREENING If you are under age 45, talk to your provider about getting screened. You may need to be screened if you have a strong family history of colon cancer or polyps. Screening may also be considered if you have risk factors such as a history of inflammatory bowel disease or polyps. If you are age 45 to 75, you should be screened for colorectal cancer. There are several screening tests available: A stool-based fecal occult blood (gFOBT) or fecal immunochemical test (FIT) every year A stool sDNA test every 1 to 3 years Flexible sigmoidoscopy every 5 years or every 10 years with stool testing FIT done every year CT colonography (virtual colonoscopy) every 5 years Colonoscopy every 10 years You may need a colonoscopy more often if you have risk factors for colorectal cancer, such as: Ulcerative colitis A personal or family history of colorectal cancer A history of growths in your colon called adenomatous polyps DENTAL EXAM Go to the dentist once or twice every year for an exam and cleaning. Your dentist will evaluate if you have a need for more frequent visits. DIABETES SCREENING All adults who do not have risk factors for diabetes should be screened starting at age 35 and repeated every 3 years. If you have other risk factors for diabetes, such as a first degree relative with diabetes, overweight or obesity, high blood pressure, prediabetes, or a history of heart disease, you may be tested more often. If you are overweight and have other risk factors, such as high blood pressure and are planning to become , screening is recommended. EYE EXAM Have an eye exam every 2 to 4 years ages 40 to 54 and every 1 to 3 years ages 55 to 64. Your provider may recommend more frequent eye exams if you have vision problems or glaucoma risk. Have an eye exam that includes an examination of your retina (back of your eye) at least every year if you have diabetes. IMMUNIZATIONS Commonly needed vaccines include: Flu shot: get one every year COVID-19 vaccine: ask your provider what is best for you Tetanus-diphtheria and acellular pertussis (Tdap) vaccine: have as one of your tetanus-diphtheria vaccines if you did not receive it as an adolescent Tetanus-diphtheria: have a booster (or Tdap) every 10 years Varicella vaccine: receive 2 doses if you never had chickenpox or the varicella vaccine and were born in 1980 or after Hepatitis B vaccine: receive 2, 3, or 4 doses, depending on your exact circumstances, if you did not receive these as a child or adolescent, until age 59 Shingles (herpes zoster) vaccine: at or after age 50 Ask your provider if you should receive other immunizations, especially if you have certain medical conditions, such as diabetes or are at increased risk for s ome diseases such as pneumonia. INFECTIOUS DISEASE SCREENING Screening for hepatitis C: all adults ages 18 to 79 should get a one-time test for hepatitis C. Screening for human immunodeficiency virus (HIV): all people ages 15 to 65 should get a one-time test for HIV. Depending on your lifestyle and medical history, you may need to be screened for infections such as syphilis, chlamydia, and other infections. LUNG CANCER SCREENING You should have an annual screening for lung cancer with low-dose computed tomography (LDCT) if: You are age 50 to 80 years AND You have a 20 pack-year smoking history AND You currently smoke or have quit within the past 15 years OSTEOPOROSIS SCREENING If you are age 50 to 64 and have risk factors for osteoporosis, you should discuss screening with your provider. Risk factors can include long-term steroid use, low body weight, smoking, heavy alcohol use, having a fracture after age 50, or a family history of hip fracture or osteoporosis. Osteoporosis PHYSICAL EXAM All adults should visit their provider from time to time, even if they are healthy. The purpose of these visits is to: Screen for diseases Assess risk of future medical problems Encourage a healthy lifestyle Update vaccinations and other preventive care services Maintain a relationship with a provider in case of an illness Your height, weight, and body mass index (BMI) should be checked at every exam. During your exam, your provider may ask you about: Depression and anxiety Diet and exercise Alcohol and tobacco use Safety, such as use of seat belts and smoke detectors Your medicines and risk for interactions PROSTATE CANCER SCREENING If you're 55 through 69 years old, before having the test, talk to your provider about the pros and cons of having a PSA test. Ask about: Whether screening decreases your chance of dying from prostate cancer. Whether there is any harm from prostate cancer screening, such as side effects from testing or overtreatment of cancer when discovered. Whether you have a higher risk of prostate cancer than others. If you are age 55 or younger, screening is not generally recommended. You should talk with your provider about if you have a higher risk for prostate cancer. Risk factors include: Having a family history of prostate cancer (especially a brother or father) Being If you choose to be tested, the PSA blood test is repeated over time (yearly or less often), though the best frequency is not known. Prostate examinations are no longer routinely done on men with no symptoms. Prostate cancer SKIN EXAM Your provider may check your skin for signs of skin cancer, especially if you're at high risk. People at high risk include those who have had skin cancer before, have close relatives with skin cancer, or have a weakened immune system. TESTICULAR EXAM The [place] Preventive Services Task Force (USPSTF) now recommends against performing testicular self-exams. Doing testicular self-exams has been shown to have little to no benefit. Quality Reporting (2019) Adult ([facility] 138/10/05/68) Smoking risk assessment performed?: Yes Patient Tobacco Use Status: Never used Tobacco Depression screening performed: Yes Screen Results: Yes Negative screen Recommended changes not done: EKG (managed by cards ) Systolic BP not done?: No Diastolic BP not done?: No BMI screening not done: No Sexual Activity Screening ([facility] 153) Sexually active?: Yes Immunizations ([facility] 147, 117) Annual Influenza Vaccine: No Flu Vaccine not done: patient reason Measles Antibody Test: No Mumps Antibody Test: No Rubella Antibody Test: No Varicella Antibody Test: No Anti Hepatitis A IgG Antigen test: No Anti Hepatitis B Virus Surface Ab test: No Fall Risk Screening ([facility] 139) Last assessed Fall Risk: 08/11/25 Fall risk assessment: No Falls in past year Dementia Assessment ([facility] 149) Cognitive assessment recorded: Yes Assessment of cognition with standardized tool: Yes Depression/Bipolar (159/160/161/177) PHQ-9: Total score: 0 Ophthalmol:Cataracts Visual Acuity (133) Visual acuity exam performed: Yes (see results) Coding Level of Care Code Medicare Subsequent (G0439) Est Pt Level 4 (27188) Diagnoses Encounter for subsequent annual wellness visit (AWV) in Medicare patient Z00.00 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 N40.1 Influenza vaccination declined Z28.21 Tetanus, diphtheria, and acellular pertussis (Tdap) vaccination declined Z28.21 ACP (advance care planning) Z71.89 Mild anemia D64.9 Polyneuropathy associated with underlying disease G63 Peripheral neuropathy type: polyneuropathy associated with underlying disease 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
[2025-08-11 12:00] VITALS: BP 132/70; PULSE 78; RESP 13; TEMP 36.3; O2SAT 99; BMI 21.6
--- OUTSIDE RECORDS SUMMARY | 2025-08-11 13:56 | XMS_ITS | Encounter Summary ---
Author Organization [facility] r Address [address] [place] [address] Phone Care Team Providers Care Ethyl Blender Name Role Phone Yvonne Diana NP Unavailable Cristian Nelson MD Unavailable Encounter Details Date Type Department Care Team (Late st Contact Info) Description 05/27/2019 Orders Only [facility] [address] [place] [address] Yvonne Diana, [place] [address] Amyloidosis, unspecified type ([facility]) Social History Tobacco Use Types Packs/Day Years Used Date Smoking Tobacco: Never Smokeless Tobacco: Never Alcohol Use Standard Drinks/Week Comments Yes 2 (1 standard drink = 0.6 oz pur e alcohol) Sex and Gender Information Value Date Recorded Sex Assigned at Male 05/19/2023 2:09 PM EDT Legal Sex Male 1:38 PM EDT Gender Identity Male 05/22/2023 11:50 AM EDT Sexual Orientation Not on file documented as of this encounter Plan of Treatment Upcoming Encounters Date Type Department Care Team (Late st Contact Info) Description 05/18/2026 8:00 AM EDT Office Visit [facility] [address] [place] [address] 05/19/2026 8:00 AM EDT Office Visit [facility] [address] [place] [address] documented as of this encounter Procedures Procedure Name Priority Date/Time Associated Diagnosis Comments XR CHEST PA AND LATERAL Routine 05/27/2019 12:07 PM EDT Amyloidosis, unspecified type (CMS/HHS/HCC) documented in this encounter Results * X-Ray Chest, 2 Views (05/27/2019 12:07 PM EDT) Anatomical Region Laterality Modality Chest Xray Auto [place] 05/27/2019 12:0 7 PM EDT Impressions 05/27/2019 12:26 PM EDT No active chest disease. I personally reviewed the study and agree with the dictated report. Narrative 05/27/2019 12:26 PM EDT EXAMINATION: Chest, 2 views HISTORY: sob TECHNIQUE: PA and Lateral views. COMPARISON: No prior studies are available. FINDINGS: Heart and mediastinum: Normal. Lungs and pleura: Lungs are clear. No pneumothorax. No pleural effusions. Bones: No acute osseous abnormality. Degenerative changes are seen in the thoracic spine. Resulting Agency Comment Dictated By: CARINA ASENCIO M.D. Date: 05/27/2019 12:26 PM Electronically Signed By: CARINA ASENCIO M.D. Date: 05/27/2019 12:26 PM Procedure Note Carina Asencio MD - 05/27/2019 EXAMINATION: Chest, 2 views HISTORY: sob TECHNIQUE: PA and Lateral views. COMPARISON: No prior studies are available. FINDINGS: Heart and mediastinum: Normal. Lungs and pleura: Lungs are clear. No pneumothorax. No pleural effusions. Bones: No acute osseous abnormality. Degenerative changes are seen in the thoracic spine. IMPRESSION: No active chest disease. I personally reviewed the study and agree with the dictated report. us Yvonne Diana LOCOMOTIVE ENGINEER [facility] ORDER MICHAEL Final Result documented in this encounter Visit Diagnoses Diagnosis Amyloidosis, unspecified type (CMS/HHS/HCC) documented in this encounter Care Teams Ethyl Blender Relationship Specialty Start Date End Date Yvonne Diana [place] [address] Nurse Practitioner Hematology and Oncology 05/23/19 Cristian Nelson MD [address] [place] [address], [place] [address] Pulmonary 06/10/19 documented as of this encounter
--- OUTSIDE RECORDS SUMMARY | 2025-08-11 13:56 | XMS_ITS | Clinical Summary ---
Author Organization [facility] r Address [address] [place] [address] Phone Care Team Providers Care Senior Clinical Research Associate Name Role Phone Yvonne Diana NP Unavailable [phone] Cristian Nelson MD Unavailable Allergies No known active allergies Medications fludrocortisone (FLORINEF) 0.1 mg tablet Take 0.1 mg by mouth daily. Taking 1/2 tab daily Active gabapentin (NEURONTIN) 100 MG capsule Take 100 mg by mouth 2 (two) times a day. Active famotidine (PEPCID) 20 mg tabletIndication s:Gastroesophage al reflux disease without esophagitis Take 1 tablet (20 mg total) by mouth 2 (two) times a day. 60 tablet 5 05/16/2022 Active aspirin 81 MG chewable tablet Chew then swallow 81 mg daily. Active Active Problems Problem Noted Date Diagnosed Date Moderate low-flow, low-gradient aortic stenosis 2023 Assessment & Plan (06/05/2024 5:22 PM EDT): Clinically appears stable with no syncope, cp or dizziness but will recheck echo Assessment & Plan (2023 8:50 AM EDT): -He has slight increase in his transaortic velocity to 2.8 m/s, mean gradient of 19 mmHg, and calculated SARAH 1.1 cm2 with borderline DVI 0.29. His stroke volume is reduced at 33 mL/m2. -He has not heart failure, arrhythmias, or syncope suggestive of high-risk disease currently and I would favor close follow-up with every 6 month echocardiograms to follow his aortic disease -He currently is asymptomatic from his valvular disease which I suspect is because his functional capacity is limited by his neuropathy but should he develop heart failure or arrhythmias, in particular, a percutaneous transaortic approach for valve replacement (DIANELYS) certainly could be considered Noninflammatory pericardial effusion ([facility]) 1 Assessment & Plan (06/05/2024 5:22 PM EDT): Normal inflammatory markers nad TSH, will check TTE Assessment & Plan (2023 8:53 AM EDT): -He has a moderate anterior pericardial effusion which appears larger on this year's echocardiogram but does not have evidence of hemodynamic signficance currently - recommend yearly surveillance unless with new symptoms 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 Pope was seen by Dr. Lucas Nicole our catalog specialist, Dr Cristian Nelson our panel machine tender, and Dr. Deacon Delgado our neurologist. Please see their attached consults regarding their clinical findings. Mr. Pope was discussed at the amyloidosis clinical team meeting. 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 Dr. Delgado notes muscle and sensory exam are both stable to improved. From a cardiac standpoint his b- type natriuretic peptide (BNP) is elevated while his troponin has normalized. The rise in BNP is likely due to his aortic stenosis. We recommend: 1. Continue vutrisiran 2. He has evidence of advanced conduction disease on EKG, consider cardiac monitoring (2-4 weeks) to ensure we are not missing any high degree AV block. 3. Dr Nicole does not think his aortic stenosis requires any action at this time 4. Consider initial of empaglifozin 10 mg daily 5. Stop aspirin 6. He has supine hypertension, consider weaning off florinef or at least decreasing it. Recommend orthostatic pressures at visits to further assess Assessment & Plan (2023 8:46 AM EDT): -From a overall cardiac perspective, Mr. Pope has had clinical stability. No clinical events and no heart failure. -On examination, he is optivolemic and has no volume overload, his trivial lower extremity is most likely due to venous stasis -Recommend ongoing ATTR therapy with vutrisiran with excellent prealbumin suppression -He does have rising natriuretic peptides with stability in troponin which to me is likely reflective of wall stress with his slightly more progressed aortic stenosis that will likely need more frequent surveillance; I do not think this reflect volume nor ATTR myopathy disease progression per se but is a reflection of his valvular disease Assessment & Plan (05/16/2022 2:11 PM EDT): Plan End organ function assesment: Obtain TTE, BNP, NT- proBNP, and troponin-I to evaluate for cardiac amyloidosis Obtain serum creatinine, basic metabolic panel, UA and 24 hour urine for protein Obtain LFTs Obtain chest x ray to evaluate for pulmonary involvement Consults: Evaluation with Dr Nelson, he is very interested in getting the ball rolling for vutrisiran Evaluation with cardiology Evaluation with neurology to determine peripheral and autonomic involvement and disease extent o Will obtain additional lab work to rule out other etiology of neuropathy labs including A1C, B12, TSH, Vit D. 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 Cristian Nelson, our panel machine tender and Dr. Lucas Nicole, our catalog specialist, and Dr. Chuck Tabor our neurologist. Please see their attached consults regarding their clinical findings. Mr. Pope was discussed at the amyloidosis clinical team meeting. 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 Dr. Tabor notes muscle and sensory exam are both stable to mildly improved. From a cardiac standpoint he also appears stable by biomarkers and echocardiogram. He does have mild-moderate aortic regurgitation and stenosis which we will continue to monitor on annual echocardiogram. We recommend: 1. Continue patisiran 2. Complete urine culture for bacteruria (lab slip provided). 3. Continue to monitor supine and standing blood pressure and adjust florinef appropriately Postural dizziness 05/27/2019 Assessment & Plan (2023 8:52 AM EDT): -He self-regulates his fludrocortisone to manage his autonomic symptoms -His blood pressure is elevated here in the office but is lower at home per his report -Continue current management strategies Assessment & Plan (05/22/2023 1:58 PM EDT): Now resolved, has HTN today but reports home Bps often run 90s-110 at highest Assessment & Plan (05/24/2021 2:14 PM EDT): Much improved since starting patisiran Assessment & Plan (06/01/2020 1:25 PM EDT): Remains orthostatic but minimal symptoms, no syncope, precautions reviewed Assessment & Plan (05/27/2019 12:54 PM EDT): Hx of HTN and then last year started having postural dizziness with near syncope, symptoms improved on florinef, precautions reviewed 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 Additional studies: Serum prealbumin level Follow up tomorrow to review results and recommendations Assessment & Plan (2023 12:32 PM EDT): Mr. Pope was seen by Dr. Annie Flaherty our catalog specialist and Dr. Meir Wadsworth our neurologist. Please see their attached consults regarding their clinical findings. Mr. Pope was discussed at the amyloidosis clinical team meeting. 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 Dr. Wadsworth notes muscle and sensory exam are both stable to mildly improved. From a cardiac standpoint his b- type natriuretic peptide (BNP) is elevated while his troponin has normalized. The rise in BNP is likely due to progression of his aortic stenosis. We recommend: 1. Continue vutrisiran 2. Repeat echocardiogram locally in 6 months for low flow low grade moderate aortic stenosis and small pericardial effusion, we will also repeat it in one year at his next evaluation Assessment & Plan (05/22/2023 1:58 PM EDT): Plan End organ function assesment: Obtain TTE, BNP, NT- proBNP, and HS troponin-I to evaluate for cardiac amyloidosis Obtain serum creatinine, basic metabolic panel, UA Obtain LFTs Obtain chest x ray to evaluate for pulmonary involvement Consults: Evaluation with cardiology Evaluation with neurology to determine peripheral and autonomic involvement and disease extent o Will obtain additional lab work to rule out other etiology of neuropathy labs including A1C, B12, TSH, Vit D. Additional studies: Serum prealbumin level Follow up tomorrow to review results and recommendations Assessment & Plan (05/28/2021 1:56 PM EDT): Mr. Pope was seen by Dr. Cristian Nelson, our panel machine tender and Dr. Lucas Nicole, our catalog specialist, and Dr. Chuck Tabor our neurologist. Please see their attached consults regarding their clinical findings. Mr. Pope was discussed at the amyloidosis clinical team meeting. In summary, Mr. Pope has T60a aTTRM with cardiac, peripheral and autonomic nervous system involvement. Dr. Tabor notes improvement in his proximal weakness but slightly worse distally, his sensory exam is stable and his autonomic symptoms have improved greatly. From a cardiac standpoint he appears stable by biomarkers and echocardiogram. We recommend: 1. Continue patisiran 2. Consider right CTR given high likelihood of right CTS - may stain flexor retinaculum to prove amyloidosis involvement 3. Follow up UA for trace hematuria 4. Ongoing PT 5. Hydrogen breath test for SIBO, consider adding lomotil if diarrheal symptoms are not controlled with loperamide 6. OK stop stop florinef and monitor BP Assessment & Plan (05/24/2021 2:14 PM EDT): Plan End organ function assesment: Obtain TTE, BNP, NT- proBNP, and troponin-I to evaluate for cardiac amyloidosis Obtain serum creatinine, basic metabolic panel, UA and 24 hour urine for protein Obtain LFTs Obtain chest x ray to evaluate for pulmonary involvement Consults: Evaluation with cardiology Evaluation with neurology to determine peripheral and autonomic involvement and disease extent o Will obtain additional lab work to rule out other etiology of neuropathy labs including A1C, B12, TSH, Vit D. Additional studies: Serum prealbumin level Follow up tomorrow to review results and recommendations Assessment & Plan (06/05/2020 1:23 PM EDT): Mr. Wilmar Pope had a number of tests to evaluate his hematologic status and the extent of amyloid organ involvement. Serum prealbumin level is <3 mg/dL. Urinalysis demonstrated hematuria and white blood cells and a urine culture was negative for infection. A 24-hour urine showed <60 mg of protein and serum creatinine was 0.74 mg/dL. Alkaline phosphatase was 97 U/L. BNP level was 133 pg/ml, NT-proBNP level was 1899 pg/ml and troponin-I was 0.043 ng/ml. An echocardiogram disclosed ejection fraction of 56%, interventricular septum measurement of 15 mm. Mr. Pope was seen by Dr. Cristian Nelson, our panel machine tender and Dr. Lucas Nicole, our catalog specialist, and Dr. Chuck Tabor our neurologist. Please see their attached consults regarding their clinical findings. Mr. Pope was discussed at the amyloidosis clinical team meeting. In summary, Mr. Pope has T60a aTTRM with cardiac, peripheral and autonomic nervous system involvement. Dr. Tabor notes improvement in his proximal weakness but slightly worse distally, his sensory exam is stable and his autonomic symptoms have improved greatly making a slowly progressive superimposed MND less likely now. From a cardiac standpoint we note modest biomarker improvement. We recommend: 1. Continue patisiran 2. Consider EMG with emphasis on evaluating for right CTS evaluating for prior seen thoracic spine denervation changes; may compare polyneuropathy findings to prior as well 3. Follow up UA for trace hematuria 4. Ongoing PT Assessment & Plan (06/01/2020 1:26 PM EDT): Plan Evaluation with cardiology, TTE, BNP, NT- proBNP, and troponin-I to evaluate for cardiac amyloidosis serum creatinine, basic metabolic panel, UA and 24 hour urine for protein Evaluation with neurology to determine peripheral and autonomic involvement and disease extent, B12, vitamin D, folate and TSH levels Obtain LFTs to evaluate for hepatic involvement Serum prealbumin level Evaluation with Dr. Nelson our TTR specialist to discuss clinical trials F/u tomorrow to review results of labs and imaging Assessment & Plan (05/31/2019 5:03 PM EDT): Mr. Wilmar Pope had a number of tests to evaluate his hematologic status and the extent of amyloid organ involvement. An abdominal fat pad aspirate was performed, which showed 2+ amyloid deposition. .His serum IgG level was 1129 mg/dL, serum IgA level was 184 mg/dL, and serum IgM level was 78 mg/dL. The serum immunofixation electrophoresis disclosed no monoclonal immunoglobulin and the urine immunofixation electrophoresis showed no monoclonal immunoglobulin. The free light chain assay showed a kappa level of 17.6 (3.3 - 19.4 mg/L), a lambda level of 17.2 (5.7 - 26.3 mg/L), and a kappa-lambda ratio of 1.02 (0.26 - 1.65). Serum prealbumin level is 17 mg/dL. Urinalysis showed no abnormalities. A 24-hour urine showed 131 mg of protein and serum creatinine was 0.76 mg/dL. Alkaline phosphatase was 60 U/L. BNP level was 171 pg/ml, NT-proBNP level was 1647 pg/ml and troponin-I was 0.074 ng/ml. An echocardiogram disclosed ejection fraction of 62%, interventricular septum measurement of 15 and global longitudinal strain of -13%. A chest radiograph was normal. Technetium pyrophosphate scan demonstrated a perugini visual score of 2 and heart to contralateral lung uptake ratio of 1.6. Mr. Pope was seen by Dr. Cristian Nelson, our panel machine tender and Dr. Lucas Nicole, our catalog specialist, and Dr. Chuck Tabor our neurologist. Please see their attached consults regarding their clinical findings. Mr. Pope was discussed at the amyloidosis clinical team meeting. In summary, Mr. Pope has T60a aTTRM with advanced peripheral and autonomic nervous system involvement. We also note mildly elevated cardiac biomarkers, uptake on technetium pyrophospate scan suggesting early cardiac involvement. Dr. Tabor notes it is possible there may be MND in addition to his amyloidosis but we have seen T60A present previously with rapidly progressive myopathy. We recommend: 1. He requires aggressive treatment with a gene silencer, either patisiran or inotersen. If there is delay in obtaining these then we would recommend starting diflunisal but we are going to work to start this therapy KWAN. 2. Consider changing florinef to midodrine which is better tolerated from a volume standpoint and easily able to be titrated up, he requires ongoing follow up with cardiology for conduction disease, could also consider an event monitor 3. Vitamin D replacement 4. PT/OT referral for gait training 5. MRI brain, consider repeating MRI C-spine at an interval Repeat EMG with emphasis on bulbar regions (if spontaneous activity seen then would cinch diagnosis of MND) and to evaluate for very unlikely myopathy (related to amyloidosis) Assessment & Plan (05/27/2019 12:56 PM EDT): Recently diagnosed with T60A hATTR after two years of myopathy and neuropathy symptoms and also autonomic symptoms of ED, weight loss, postural hypotension, and alterations of constipation and diarrhea Plan Abdominal fat aspirate for disease confirmation and determination of disease extent obtain sFLCs, SIFE/UIFE, SPEP/UPEP Obtain TcPYP scan Evaluation with cardiology, will obtain follow-up TTE, BNP, NT- proBNP, and troponin-I to evaluate for cardiac amyloidosis Evaluation with neurology to determine peripheral and autonomic involvement and disease extent Obtain chest x ray to evaluate for pulmonary involvement Obtain LFTs to evaluate for hepatic involvement Serum prealbumin level Genetic sequencing Family History Medical History Relation Name Comments Dementia Father Leukemia Mother Rheum arthritis Sister 1 seronegative RA No Known Problems Sister 2 Relation Name Status Comments Father (Age 88) Maternal Grandmother (Age 66) un known causes Mother (Age 44) Sister 1 Alive Sister 2 Alive Social History Tobacco Use Types Packs/Day Years [...] AM EDT Sexual Orientation Not on file Last Filed Vital Signs Vital Sign Reading Time Taken Comments Blood Pressure 144/84 06/03/2024 11:15 AM EDT Pulse 72 06/03/2024 11:15 AM EDT Temperature 36.2 C (97.2 F) 06/03/2024 11:14 AM EDT Respiratory Rate 20 06/03/2024 11:14 AM EDT Oxygen Saturation 99% 06/03/2024 11:15 AM EDT Inhaled Oxygen Concentration - - Weight 72.6 kg (160 lb) 06/03/2024 11:15 AM EDT Height 182.9 cm (6' 0.01 ) 06/03/2024 11:15 AM E DT Body Mass Index 21.7 06/03/2024 11:15 AM EDT Plan of Treatment Upcoming Encounters Date Type Department Care Team (Late st Contact Info) Description 05/18/2026 8:00 AM EDT Office Visit [facility] [address] [place] [place] [address] 05/19/2026 8:00 AM EDT Office Visit [facility] [address] [place] [place] [address] Health Maintenance Due Date Last Done Comments Fall Prevention 1950 HIV Lifetime Screening 1950 Hepatitis B Lifetime Screening 1950 Hepatitis C Antibody Lifetime Screening 1950 THRIVE SCREENING 1949 Oral Health Screen 1949 HEIP Disability Screen 1954 BEHAVIORAL HEALTH SCREEN 1961 Psych Substance Use Screen 1961 DTAP/TDAP VACCINE (1 - Tdap) 1968 Pneumonia Vaccine 50+ (1 of 2 - PCV) 1968 Zoster Vaccine (1 of 2) 1999 COVID-19 Vaccine (3 - Moderna risk series) 12/09/2020 11/11/2020, 10/07/2020 RSV Immunization 60 Years and Older OR (1 - 1-dose 75+ series) 2024 INFLUENZA VACCINE (#1) 2025 , 06/12/2019, 06/26/2018, Additional history exists LIPID PANEL Discontinued 06/03/2024, 04/2023, 05/16/2022, Additional history exists HPV VACCINES Aged Out No longer eligi ble based on patient's age to complete this topic IPV VACCINES Aged Out No longer eligi ble based on patient's age to complete this topic MENINGOCOCCAL B Aged Out No longer el igible based on patient's age to complete this topic ROTAVIRUS VACCINES Aged Out No longer eligible based on patient's age to complete this topic Procedures Procedure Name Priority Date/Time Associated Diagnosis Comments FOR HAM LOCATION ONLY STAT 06/03/2024 9:49 AM EDT Familial amyloid polyneuropathy ([facility]) from Last 3 Months or Most Recently Relevant to Health Maintenance Results * (ABNORMAL) HAM 1 (06/03/2024 9:49 AM EDT) Albumin 4.1 3.5 - 5.0 G/DL 06/03/2024 1:35 PM EDT [facility] Alkaline Phosphatase, Total 98 25 - 100 U/L 06/03/2024 1:35 PM EDT [facility] Comment:The results of this assay should be interpreted in the context of the patient's mzm-nvaekxrn-nf- and additional relevant clinical and laboratory data. ALT(SGPT) 20 9.0 - 67.0 U/L 06/03/2024 1:35 PM EDT [facility] Amylase 53 26 - 131 U/L 06/03/2024 1:42 PM EDT [facility] AST(SGOT) 30 13 - 39 U/L 06/03/2024 1:35 PM EDT [facility] Bilirubin, Total 1.1 0.3 - 1.2 MG/DL 06/03/2024 1:35 PM EDT [facility] Urea Nitrogen (BUN) 14 7 - 25 MG/DL 06/03/2024 1:35 PM EDT [facility] Calcium 9.6 8 - 10.5 MG/DL 06/03/2024 1:35 PM EDT [facility] Chloride 101 98 - 110 MMOL/L 06/03/2024 1:35 PM EDT [facility] Cholesterol 174 <200 mg/dL 06/03/2024 1:35 PM EDT [facility] Comment:CHOLESTEROL RISK CLA SSIFICATION: <200 MG/DL = LOW RISK, 200 to 239 MG/DL = BORDERLINE/HIGH RISK, >239 MG/DL = HIGH RISK. CK 259(H) 39 - 193 U/L 06/03/2024 1:35 PM EDT [facility] Comment:The results of this assay should be interpreted in the context of the patient's zlc-[id number]-qk- and additional relevant clinical and laboratory data. CO2 31.0(H) 19 - 28 MMOL/L 06/03/2024 1:35 PM EDT [facility] Comment:Elevated triglycerid e levels (>1000 mg/dL) may cause falsely low bicarbonate results. If clinically indicated, a venous blood gas should be ordered to confirm the bicarbonate result. Glucose 87 70 - 100 MG/DL 06/03/2024 1:35 PM EDT [facility] Iron 74 50 - 175 MCG/DL 06/03/2024 1:35 PM EDT [facility] Comment:The results of this assay should be interpreted in the context of the patient's jjv-yphihvjq-sl- and additional relevant clinical and laboratory data. TIBC 339 240 - 450 MCG/DL 06/03/2024 1:35 PM EDT [facility] Transferrin Saturation, Calculated 22 20 - 50 % 06/03/2024 1:35 PM EDT [facility] Magnesium 2.2 1.6 - 2.6 MG/DL 06/03/2024 1:35 PM EDT [facility] Phosphorous 2.6(L) 2.8 - 4.1 MG/DL 06/03/2024 1:35 PM EDT [facility] Potassium 3.7 3.1 - 5.3 MMOL/L 06/03/2024 1:35 PM EDT [facility] Comment:For serum, the lower end of the reference range may be higher by 0.2 to 0.4 mmol/L. Sodium 138 135 - 145 MMOL/L 06/03/2024 1:35 PM EDT [facility] Triglyceride 51 40 - 200 MG/DL 06/03/2024 1:35 PM EDT [facility] Uric Acid 5.1 3.4 - 7.0 MG/DL 06/03/2024 1:42 PM EDT [facility] Comment:The results of this assay should be interpreted in the context of the patient's sfn-gfcdtfjk-by- and additional relevant clinical and laboratory data. Creatinine 0.82 0.7 - 1.3 MG/DL 06/03/2024 1:35 PM EDT [facility] Comment:The results of this assay should be interpreted in the context of the patient's oqo-zmihqaij-fp- and additional relevant clinical and laboratory data. Estimated GFR >90 >59 mL/min/1. 73_m2 06/03/2024 1:35 PM EDT [facility] Comment: The calculation of eGFR utilizes the 2020 CKD-EPI creatinine equation. eGFR estimates can be inaccurate and may vary from the true level of kidney function. Specific populations in which an eGFR value may be inaccurate or biased include: acute kidney injury, , extremes of muscle mass, age greater than 80 years old. The results of this assay should be interpreted in the context of the patient's ibi-ctlaaadh-jk- and additional relevant clinical and laboratory data. Anion Gap Without Potassium 6(L) 7 - 16 06/03/2024 1:35 PM EDT [facility] B-Type Natriuretic Peptide 327(H) 0 - 176 PG/ML 06/03/2024 1:31 PM EDT [facility] Comment: TO RULE OUT HEART FAILURE, 100 PG/ML CAN BE USED A DECISION THRESHOLD WITH A CLINICAL SPECIFICITY OF 97.4%. IN CLINICAL STUDIES, 72.6% OF CHF PATIENTS HAD BNP LEVELS GREATER THAN 100 PG/ML. RESULT INTERPRETATION SHOULD CONSIDER PATIENT AGE, SEX, CLINICAL FINDINGS AND OTHER DIAGNOSTIC PROCEDURES. THIS TORRES LEGAL DOCUMENT SPECIALIST ASSAY SHOULD NOT BE USED INTERCHANGEABLY WITH OTHER SUPERVISOR [employer]'S BNP ASSAYS OR NT-PROBNP ASSAY RESULTS. Vit D 25-Hydroxy 31.0 30 - 60 ng/mL 06/03/2024 1:53 PM EDT [facility] Comment: Vitamin D Reference Range: <20 ng/mL Insufficient 20-96 ng/mL Sufficient 30-60 ng/mL [place] >96 ng/mL Potentially Toxic Hemoglobin A1C 5.2 4.0 - 5.6 % 06/03/2024 1:41 PM EDT [facility] Comment: PLEASE NOTE NEW REFERENCE RANGE Initial Diagnosis of Diabetes: Increased risk for diabetes (pre-diabetes): 5.7-6.4% Diabetes: > or = 6.5% Patients with Diagnosis of Diabetes: In patients with diabetes, HbA1c goals should be discussed with a healthcare provider. The Torres hemoglobin A1c assay should not be used to diagnose or monitor diabetes in patients with altered red cell lifespan, such as homozygous hemoglobin variants, Hb SC, HbF > 5%, and hemolytic anemia. High Sensitivity Troponin I 32 <35 ng/L 06/03/2024 1:35 PM EDT [facility] Comment: The results of this assay should be interpreted in the context of the patient's ygx-[id number]-yp- and additional relevant clinical and laboratory data. Samples with total protein >9.0 g/dL are susceptible to a negative bias. 06/03/2024 9:49 AM EDT 06/03/2024 12:03 PM EDT Comment:BLOOD SPECIMEN~PLASM A SPECIMEN~SERUM SPECIMEN~WHOLE BLOOD SAMPLE us Yvonne Diana NP LAB BLOOD ORDERABLES Final R esult [facility] CLIA [id number] [place] [address], from Last 3 Months or Most Recently Relevant to Health Maintenance Care Teams Senior Clinical Research Associate Relationship Specialty Start Date End Date Yvonne Diana, PRINCIPAL [place] [address] Nurse Practitioner Hematology and Oncology 05/23/19 Cristian Nelson MD [address] [place] [address], [place] [address] Pulmonary 06/10/19
== END 2025-08-11 12:40 | disposition home or self-care (01) ==
LOC: HO.HMCFM 11:50
PROVIDERS: PCP Family Medicine; Visit Provider Nurse Practitioner Family
DX: Z00.00 Encounter for general adult medical examination without abnormal findings (principal); N40.1 Benign prostatic hyperplasia with lower urinary tract symptoms; D64.9 Anemia, unspecified; I35.0 Nonrheumatic aortic (valve) stenosis; G63 Polyneuropathy in diseases classified elsewhere; I95.1 Orthostatic hypotension; Z28.21 Immunization not carried out because of patient refusal

== ENCOUNTER → 2025-08-11 11:49 | Outpatient (BNVA) | payer MEDICARE, OTHER, SELFPAY | PROVIDERS: PCP Family Medicine; Visit Provider Nurse Practitioner Family | DX: Z00.00 Encounter for general adult medical examination without abnormal findings (principal); N40.1 Benign prostatic hyperplasia with lower urinary tract symptoms; R39.12 Poor urinary stream; E85.2 Heredofamilial amyloidosis, unspecified; D64.9 Anemia, unspecified; I95.1 Orthostatic hypotension; G63 Polyneuropathy in diseases classified elsewhere; I35.0 Nonrheumatic aortic (valve) stenosis; E55.9 Vitamin D deficiency, unspecified; Z13.31 Encounter for screening for depression; Z13.1 Encounter for screening for diabetes mellitus; Z28.21 Immunization not carried out because of patient refusal; Z71.89 Other specified counseling | CPT/HCPCS: 83036; 96127; 99212; 99497 ==

== ENCOUNTER 2025-08-12 12:15 | Outpatient (AMB) | payer MEDICARE, OTHER, SELFPAY ==
--- NOTE | 2025-08-12 12:35 | A.OFFVIS_ITS ---
Vital Signs 08/12/25 12:38 Height 6 ft Weight 156 lb 15.506 oz BMI 21.3 BP 120/64 Blood Pressure Location Lt brachial Position Sitting Pulse 70 Pulse Source Pulse Oximeter Intake Visit Reasons: 6 mth fu - sp cardiac cath Intake Note: 6 th f/up- sp cath Radiology Technician Required: No Accompanied by: Spouse Allergies No Known Allergies Allergy (Verified 08/11/25 11:54) HPI Comments Details: Wilmar comes for follow-up. He has been doing well from cardiac perspective. He has no new cardiac symptoms. He is getting more active. With his normal activity level he denies any episodes of chest pain, worsening shortness of breath, lightheadedness. No heart failure symptoms of orthopnea, PND. His nadolol leg swelling in his right leg. Otherwise his Florinef he has maintain in his blood pressure and takes it on every day. He has had steady improvement in his neurologic function with treatment. [facility] Medical History Fall Cellulitis of foot Cellulitis Orthostatic hypotension Aortic stenosis Amyloidosis inherited systemic Surgical History Hx of cardiac cath History of carpal tunnel surgery History of biopsy History of surgery History of colonoscopy (~2018) Family History Father Substance use disorder Mother Leukemia Brother No problems noted. Sister Seronegative rheumatoid arthritis Sister No problems noted. Daughter No problems noted. Social History Housing: House Alcohol intake: current Alcohol intake frequency: a few times a month Patient Tobacco Use Status: Never used Tobacco e-Cigarette/Vaping Use: Never Used Second Hand Smoke Exposure: No service: No Current occupational status: retired Current occupational exposures/hazards: No Cognitive needs: No Hearing needs: No Vision needs: No Review of Systems Const Denies chills, Denies fatigue, Denies fever(s), Denies frequent falls, Denies weakness, Denies weight gain and Denies weight loss ENT Denies dizziness Card Denies chest pain, Denies leg edema, Denies lightheadedness, Denies palpitations, Denies dyspnea and Denies dyspnea on exertion Resp Denies cough, Denies dyspnea and Denies dyspnea on exertion GI Denies hematochezia Musc Denies abnormal gait, Denies muscle weakness, Denies numbness, Denies radiating pain into limb and Denies tingling Neuro Denies abnormal gait, Denies dizziness, Denies frequent falls, Denies numbness, Denies tingling and Denies weakness Endo Denies fatigue and Denies palpitations Physical Exam Vital Signs: Last Vital Signs Pulse 70 08/12/25 12:38 BP 120/64 08/12/25 12:38 BMI result Body Mass Index 21.3 Const General: cooperative, comfortable, no acute distress, alert, awake and well groomed Nutritional Appearance: thin Orientation/consciousness: patient oriented x3 Limitations: ambulation with walker Neck Neck: Yes trachea midline, Yes supple and Yes JVD Carotids: delayed carotid upstroke Resp Effort & Inspection: normal respiratory effort Auscultation: clear to auscultation bilaterally Cardio Jugular venous distension: JVD Palpation: normal PMI Rate: regular rate Rhythm: regular rhythm Heart sounds: S1 normal heart sound present, Murmur heart sound present systolic late, decrescendo and crescendo and Other heart sounds present (Soft test to) GI Auscultation: normal bowel sounds Skin General skin exam: no rashes or lesions noted Neuro General: patient oriented x3 and no focal motor deficits Extrem General: No clubbing, No cyanosis and Yes edema (One to 2+ on right greater than left) Psych Appearance: grossly normal Assessment & Plan Assessment & Plan (1) Aortic stenosis: Code(s): I35.0 - Nonrheumatic aortic (valve) stenosis Category: Medical Qualifiers: Cardiac valve disease etiology: nonrheumatic Qualified Code(s): I35.0 - Nonrheumatic aortic (valve) stenosis Plan: Aortic stenosis which by cardiac catheterization as moderately severe at 1.06 cm2. He continues to have no symptoms related to it. By echo criteria add paradoxical low-flow severe aortic stenosis. Will continue monitor by echocardiogram in 5 months time. We discussed about gradually and naturally progressive nature of aortic stenosis. Cardinal symptoms associated with aortic stenosis were discussed. Continue low-dose aspirin therapy. Continue lipid modification goal LDL less than 100 mg/dL. 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 No signs or symptoms of heart failure. Overall has done well and has had stabilized LV ejection fraction. Continue monitor by echocardiogram. (3) Orthostatic hypotension: Code(s): I95.1 - Orthostatic hypotension Category: Medical Plan: Orthostatic hypotension also related to autonomic dysfunction related to systemic amyloidosis. Has stabilized. Continue current fludrocortisone therapy. He has no signs of fluid overload at this point time. Will follow up in the clinic in 6 months time, sooner PRN. Thank you for allowing me to partake in his care Orders: Orders CA echo transthoracic complete 5 Months I35.0 - Nonrheumatic aortic (valve) stenosis Coding Level of Care Code Est Pt Level 4 (35781) Diagnoses Nonrheumatic aortic valve stenosis I35.0 Cardiac valve disease etiology: nonrheumatic Amyloidosis inherited systemic E85.2 Orthostatic hypotension I95.1
--- NOTE | 2025-08-12 12:35 | A.OFFVIS_ITS ---
Intake Visit Reasons: 6 mth fu - sp cardiac cath Allergies No Known Allergies Allergy (Verified 08/11/25 11:54) [facility] Medical History (Updated 08/11/25 @ 13:05 [facility] Fall Cellulitis of foot Cellulitis Orthostatic hypotension Aortic stenosis Amyloidosis inherited systemic Surgical History (Updated 08/11/25 @ 12:39 by ANTOINE ReneeJUAN) History of carpal tunnel surgery History of biopsy History of surgery History of colonoscopy (~2018) Family History Father Substance use disorder Mother Leukemia Brother No problems noted. Sister Seronegative rheumatoid arthritis Sister No problems noted. Daughter No problems noted. Social History (Updated 05/06/25 @ 12:04 by Kami Murray CMA) Housing: House Alcohol intake: current Alcohol intake frequency: a few times a month Patient Tobacco Use Status: Never used Tobacco e-Cigarette/Vaping Use: Never Used Second Hand Smoke Exposure: No service: No Current occupational status: retired Current occupational exposures/hazards: No Cognitive needs: No Hearing needs: No Vision needs: No Coding
[2025-08-12 12:38] VITALS: BP 120/64; PULSE 70; BMI 21.3
--- OUTSIDE RECORDS SUMMARY | 2025-08-12 16:16 | XMS_ITS | Encounter Summary ---
Author Organization [facility] r Address [address] [place] [address] Phone Care Team Providers Care Organic Lab Worker Name Role Phone Yvonne Diana NP Unavailable [phone] Cristina Nelson MD Unavailable Encounter Details Date Type Department Care Team (Late st Contact Info) Description 05/27/2019 Orders Only [facility] [address] [place] [address] Yvonne Diana, [place] [address] Amyloidosis, unspecified type ([facility]) Social History Tobacco Use Types Packs/Day [...] AMYLOID [address] [place] [address] 05/19/2026 8:00 AM EDT Office Visit [facility] AMYLOID [address] [place] [address] documented as of this encounter Procedures Procedure [...] with the dictated report. us Yvonne Diana MANAGER COUNCIL IMG DIAGNOSTIC IMAGING ORDER MICHAEL Final Result documented in this encounter Visit Diagnoses Diagnosis Amyloidosis, unspecified type (CMS/HHS/HCC) documented in this encounter Care Teams Organic Lab Worker Relationship Specialty Start Date End Date Yvonne Diana MANAGER COUNCIL [address] [facility] [place] [address] Nurse Practitioner Hematology and Oncology 05/23/19 Cristian Nelson MD [address] [place] [address], [place] [address] Pulmonary 06/10/19 documented as of this encounter
--- OUTSIDE RECORDS SUMMARY | 2025-08-12 16:16 | XMS_ITS | Clinical Summary ---
Author Organization [facility] r Address [address] [place] [address] Phone Care Team Providers Care Industrial Spray Painter Name Role Phone Yvonne Diana NP Unavailable [phone] Cristian Nelson MD Unavailable Allergies No known [...] certainly could be considered Noninflammatory pericardial effusion ([facility]) 1 Assessment & Plan (06/05/2024 5:22 PM EDT): Normal inflammatory markers nad TSH, will check TTE Assessment & Plan (2023 8:53 AM EDT): -He has a moderate anterior pericardial effusion which appears larger on this year's echocardiogram but does not have evidence of hemodynamic signficance currently - recommend yearly surveillance unless with new symptoms 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 Pope was seen by Dr. [place] Nicole our airplane tube builder, Dr Cristian Nelson our marinator, and Dr. Deacon Delgado our neurologist. Please [...] was seen by Dr. Cristian Nelson, our marinator and Dr. [place] Nicole, our airplane tube builder, and Dr. Chuck Tabor our neurologist. 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 Annie Flaherty our airplane tube builder and Dr. Meir Wadsworth our neurologist. Please [...] was seen by Dr. Cristian Nelson, our marinator and Dr. [place] Nicole, our airplane tube builder, and Dr. Chuck Tabor our neurologist. Please [...] was seen by Dr. Cristian Nelson, our marinator and Dr. [place] Nicole, our airplane tube builder, and Dr. [place] Tabor our neurologist. Please [...] was seen by Dr. Cristian Nelson, our marinator and Dr. [place] Nicole, our airplane tube builder, and Dr. Chuck Tabor our neurologist. Please [...] Visit MOA AMYLOID [address] [place] [address] 05/19/2026 8:00 AM EDT Office Visit [facility] AMYLOID [address] [place] [address] Health Maintenance Due Date Last Done Comments [...] 06/03/2024 9:49 AM EDT Familial amyloid polyneuropathy ([facility]) from Last 3 Months or Most Recently Relevant to Health Maintenance Results * (ABNORMAL) HAM 1 (06/03/2024 9:49 AM EDT) Albumin 4.1 3.5 - 5.0 G/DL 06/03/2024 1:35 PM EDT [facility] Alkaline Phosphatase, Total 98 25 - 100 U/L 06/03/2024 1:35 PM EDT [facility] Comment:The results of this assay should be interpreted in the context of the patient's kap-ubkgijdl-wg- and additional relevant clinical and laboratory data. [...] interpreted in the context of the patient's rzv-bpovaxof-du- and additional relevant clinical and laboratory data. [...] interpreted in the context of the patient's ehp-badtxycx-vl- and additional relevant clinical and laboratory data. [...] interpreted in the context of the patient's ihr-jaaetrnp-zl- and additional relevant clinical and laboratory data. Creatinine 0.82 0.7 - 1.3 MG/DL 06/03/2024 1:35 PM EDT [facility] Comment:The results of this assay should be interpreted in the context of the patient's bac-ymvsbiux-gl- and additional relevant clinical and laboratory data. [...] interpreted in the context of the patient's aks-ybunnlub-sh- and additional relevant clinical and laboratory data. [...] FINDINGS AND OTHER DIAGNOSTIC PROCEDURES. THIS TORRES HOTEL ASSISTANT MANAGER ASSAY SHOULD NOT BE USED INTERCHANGEABLY WITH OTHER TAX ASSISTANT'S BNP ASSAYS OR NT-PROBNP ASSAY RESULTS. Vit D 25-Hydroxy 31.0 30 - 60 ng/mL 06/03/2024 1:53 PM EDT [facility] Comment: Vitamin D Reference Range: <20 ng/mL Insufficient 20-96 ng/mL Sufficient 30-60 ng/mL Larose >96 ng/mL Potentially Toxic Hemoglobin A1C 5.2 [...] interpreted in the context of the patient's aby-valwkrea-da- and additional relevant clinical and laboratory data. Samples with total protein >9.0 g/dL are susceptible to a negative bias. 06/03/2024 9:49 AM EDT 06/03/2024 12:03 PM EDT Comment:BLOOD SPECIMEN~PLASM A SPECIMEN~SERUM SPECIMEN~WHOLE BLOOD SAMPLE us Yvonne Diana NP LAB BLOOD ORDERABLES Final R esult [facility] CLIA [id number] [place] [address], from Last 3 Months or Most Recently Relevant to Health Maintenance Care Teams Industrial Spray Painter Relationship Specialty Start Date End Date Yvonne Diana, [place] [address] Nurse Practitioner Hematology and Oncology 05/23/19 Cristian Nelson MD [address] [place] [address], [place] [address] Pulmonary 06/10/19
== END 2025-08-12 12:54 | disposition home or self-care (01) ==
LOC: HO.HCS 12:17
PROVIDERS: PCP Family Medicine; Visit Provider Internal Medicine Cardiovascular Disease
DX: I35.0 Nonrheumatic aortic (valve) stenosis (principal); E85.2 Heredofamilial amyloidosis, unspecified; I95.1 Orthostatic hypotension
CPT/HCPCS: 99214

== ENCOUNTER → 2025-08-12 12:15 | Outpatient (BNVA) | payer MEDICARE, OTHER, SELFPAY | PROVIDERS: PCP Family Medicine; Visit Provider Internal Medicine Cardiovascular Disease | DX: I35.0 Nonrheumatic aortic (valve) stenosis (principal); E85.2 Heredofamilial amyloidosis, unspecified; I95.1 Orthostatic hypotension; Z98.890 Other specified postprocedural states | CPT/HCPCS: 99212 ==